=== PATIENT | female | born 1935 | race Caucasian/White ===

== ENCOUNTER 2023-03-30 08:24 | Inpatient (IN) ==
[2023-03-30] MEDS ORDERED: HYDROmorphone INJ 0.5 MG/0.5 ML SYR IV STA (08:43)
[2023-03-30] MEDS ORDERED: SODIUM CHLORIDE 0.9% 500 ML IV ONE (08:43)
[2023-03-30] MEDS ORDERED: ONDANSETRON INJ 2 MG/ML 2 ML VIAL IV STA (08:43)
--- NOTE | 2023-03-30 08:46 | Emergency Department Note ---
Impression & Plan Acute cholecystitis, Dilation of biliary tract ED Provider Note Name: ADRI DURHAM Age: 88 Sex: Female Arrives Via: Ambulance Informant: Patient ED Provider: Maynor Marques MD Chief Complaint: Abdominal pain Impression: As per impressions above Medical Decision Makin-year-old female with a history of breast cancer who has been having issues with constipation the last few months. She had a colonoscopy a little over a week ago with some polyp removals. There was a larger 2 polyps that we will need to further removal currently scheduled at [facility]. Patient states that pretty acutely last evening she developed right-sided abdominal pain. Continued throughout the evening with nausea and vomiting. Arrives to the ER via EMS. She was given IV pain medication Zofran and fluids. CT abdomen pelvis does reveal acute cholecystitis. Consulted general surgery who plan on taking her to the OR and have asked that medicine admit which I think is reasonable along with GI evaluation as well. These other services contacted and patient was kept comfortable in the ER. She was given some IV Mefoxin for abx coverage. Patient is not septic. Triage/Nursing Notes reviewed by Me Differential:Pancreatitis, renal colic, cholecystitis, bowel obstruction, ischemia, appendicitis amongst many other pathologies considered Vital Signs: reviewed and remarkable for no significant abnormalities Interventions: Normal saline bolus IV, Dilaudid IV, Zofran IV, Mefoxin IV Labs:ED labs Reviewed by me and remarkable for relatively unremarkable CBC, CMP Imaging:CT abdomen pelvis as per my formal interpretation reveals enlarged gallbladder with surrounding edema consistent with cholecystitis. This was confirmed by radiologist. EKG:As per my interpretation. Indication preoperative evaluation. Normal sinus rhythm at 66 bpm no ectopy no ischemia. QTc of 425. Similar to EKG from October 29, 2014 the rate is decreased. Cardiac/Tele Monitoring: Cardiac Monitoring: An Order was placed for continuous cardiac monitoring. The monitor shows a rate of 60 with a normal sinus rhythm. Consults:Dr Del Rio Gen Surg. Dr Concepcion Hospitalist Plan: Disposition:Hospitalization. Condition: Fair History of Present Illness: 88-year-old female arrives for evaluation of abdominal pain. Patient notes severe sudden onset abdominal pain starting at 6 PM last night. Associated dry heaves and vomiting. States she is having some chills but denies any known fevers. No chest pain, shortness of breath, back pain, urinary/bowel symptoms, leg swelling. Patient does note chronic constipation symptoms. She has had some dark stools which she related secondary to recent polyp removals. Patient has chronic anemia issues secondary to treatment for breast cancer. She did get blood transfusions a few weeks ago. She notes a history of aspirin use but no other blood thinner use. Past Medical History:See Below Home Medications:See Below Allergies:cipro, bactrim Vitals:Blood Pressure: 143/70, Pulse 68, RR 18, T 36.7C, O2 99% on RA Physical Exam: GENERAL: Patient is uncomfortable appearing and in moderate distress. RESPIRATORY: No dyspnea. Clear to auscultation and equal bilaterally. CARDIOVASCULAR: Regular rate and rhythm.No murmur appreciated. GASTROINTESTINAL: Moderate right-sided abdominal tenderness palpation no overt peritonitis. EXTREMITIES: Normal motion all extremities, no cyanosis, no edema. NEUROLOGIC: Alert and oriented. No focal neurologic deficits appreciated SKIN: No rash, no jaundice, no diaphoresis. PSYCH: Appropriate GCS: 15 ED Course: Times/Reassessments: Patient appears comfortable she states the pain medication helped well. 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 Jhaveri>rt breast (no surgery) Skin, right breast mass, incisional biopsy: - Invasive ductal carcinoma - Histologic grade: Low - Tubules: 3/3 - Nuclei: 1/3 - Mitoses: 1/3 - In situ component: Present H/O wrist surgery right Family History Aunt Breast cancer Father Heart disease Brother Heart disease Colorectal cancer Mother Clotting disorder Other No family history of adverse response to anesthesia Social History Smoking Status: Never smoker Second Hand Exposure: No; Hx Alcohol Use: No Preferred Language: Kazakh Communication Ability: Effective Observer Helper Required: No Beliefs That Will Affect Care: Confucianist Confucianist Beliefs: adventist marital status: / Current Living Situation: Alone current occupational status: retired How many Children do You have: 1 Feels Safe at Home: Yes during the past year weight has: remained stable Assistive Devices: Denture - Upper and Glasses Allergies Allergies Allergy/AdvReac Type Severity Reaction Status Date / Time ciprofloxacin [From Cipro] AdvReac Mild Nausea Verified 03/20/23 12:03 sulfamethoxazole AdvReac Mild Nausea Verified 03/20/23 12:03 [From Bactrim] trimethoprim [From Bactrim] AdvReac Mild Nausea Verified 03/20/23 12:03 Home Meds Home Medications Medication Instructions Recorded Confirmed aspirin 81 mg tablet,delayed 0 mg PO QPM 10/16/22 03/30/23 release atorvastatin 20 mg tablet 20 mg PO QPM 10/16/22 03/30/23 cholecalciferol (vitamin D3) 50 0 mcg PO QAM 10/16/22 03/30/23 mcg (2,000 unit) capsule escitalopram oxalate 5 mg tablet 5 mg PO QPM 10/16/22 03/30/23 furosemide 40 mg tablet 40 mg PO DAILY PRN Weight Gain 10/16/22 03/30/23 mecobalamin (vitamin B12) 1,000 0 mcg PO DAILY 10/16/22 03/30/23 mcg chewable tablet potassium chloride 10 mEq 10 meq PO DAILY PRN Weight Gain 10/16/22 03/30/23 capsule,extended release lorazepam 1 mg tablet 1 mg PO UD PRN Anxiety 12/09/22 03/30/23 abemaciclib 50 mg tablet (Verzenio) 0 mg PO BID 12/29/22 03/30/23 metoprolol succinate 25 mg 25 mg PO QPM 03/13/23 03/30/23 tablet,extended release 24 hr multivitamin 0 tab PO DAILY 03/13/23 03/30/23 ondansetron 8 mg disintegrating 8 mg PO TID PRN Nausea And Vomiting 03/30/23 03/30/23 tablet Previous Rx's Medication Instructions Recorded peg 3350-electrolytes 236 240 ml PO Q10M #4,000 mL 03/09/23 gram-22.74 gram-6.74 gram-5.86 gram solution (GaviLyte-G) Results & Data (ED) Vital Signs Vital Signs - 24 hr 03/30/23 08:24 03/30/23 09:55 Temperature 36.7 C Temperature Source Oral Pulse Rate 68 Pulse Rate [Radial] 77 Pulse Rhythm [Radial] Regular Respiratory Rate 18 18 Respiratory Effort / Characteristics Non-Labored Non-Labored Respiratory Depth Normal Normal Respiratory Pattern Regular Regular Blood Pressure 143/70 H Blood Pressure [Right Arm] 123/52 L Blood Pressure Mean 94 Blood Pressure Mean [Right Arm] 75 Pulse Oximetry 99 96 Oxygen Delivery Method Room Air Room Air Sepsis Recent Fever Within 48 Hours No Sepsis New/Unexplained Change in Mental Status N/A Sepsis Action Taken by Nursing No Action Required Laboratory Data 03/30/23 08:30 03/30/23 08:30 Lab Results 03/30/23 Range/Units 08:30 WBC 5.58 (4.8-10.8) K/ul RBC 3.07 L (4.20-5.40) M/uL Hgb 9.0 L (12.0-16.0) g/dl Hct 29.0 L (37.0-47.0) % MCV 94.5 (80.0-100.0) fL MCH 29.3 (25.0-34.0) pg MCHC 31.0 L (32.0-36.0) g/dL RDW Std Deviation 63.7 H (36.4-46.3) fL RDW Coeff of Kirill 18.5 H (11.5-14.5) % Plt Count 204 (130-400) K/uL MPV 9.3 L (9.4-12.4) fL Immature Gran % (Auto) 0.4 % Neut % (Auto) 61.6 % Lymph % (Auto) 23.8 % Stearns % (Auto) 9.1 % Eos % (Auto) 3.8 % Baso % (Auto) 1.3 % Neut # (Auto) 3.44 (1.40-6.50) K/uL Lymph # (Auto) 1.33 (1.20-3.40) K/uL Stearns # (Auto) 0.51 (0.11-0.59) K/uL Eos # (Auto) 0.21 (0.00-0.50) K/uL Baso # (Auto) 0.07 (0.00-0.20) K/uL Immature Gran # (Auto) 0.02 (0.01-0.20) K/uL Sodium 138 (136-145) mmol/L Potassium 4.5 (3.5-5.1) mmol/L Chloride 107 (98-107) mmol/L Carbon Dioxide 22 (21-32) mmol/L Anion Gap 9 (3-11) BUN 40 H (6-23) mg/dl Creatinine 1.57 H (0.6-1.2) mg/dl Est Cr Clr Drug Dosing 23.1 ml/min Est GFR ( Amer) 34.2 ml/min Est GFR (Non-Af Amer) 29.5 ml/min BUN/Creatinine Ratio 25.5 H (10-20) Glucose 123 H (70-99(Fasting)) mg/dl Calcium 9.8 (8.6-10.3) mg/dl Magnesium 1.7 (1.7-2.4) mg/dl Total Bilirubin 0.4 (0.2-1.0) mg/dl Direct Bilirubin 0.1 (0-0.2) mg/dl AST 23 (13-39) U/L ALT 21 (7-52) U/L Alkaline Phosphatase 92 (34-104) U/L Troponin I High Sens 13.5 (0-14) pg/ml Total Protein 6.8 (6.0-8.3) gm/dl Albumin 4.1 (3.4-5.0) gm/dl Lipase 78 (11-82) U/L Administered Medications Hydromorphone HCl (Hydromorphone Inj 0.5 Mg/0.5 Ml Syr) 0.5 mg IV Q4H PRN PRN Reason: Pain(5+) Stop: 04/13/23 10:33 Last Admin: 03/30/23 11:36 Dose: 0.5 mg Documented By: DUKE Ondansetron HCl (Ondansetron Inj 2 Mg/Ml 2 Ml Vial) 4 mg IV Q4H PRN PRN Reason: Nausea Stop: 04/29/23 11:01 Last Admin: 03/30/23 11:36 Dose: 4 mg Documented By: DUKE Discontinued Medications Hydromorphone HCl (Hydromorphone Inj 0.5 Mg/0.5 Ml Syr) 0.5 mg IV NOW STA Stop: 03/30/23 08:44 Last Admin: 03/30/23 09:02 Dose: 0.5 mg Documented By: DUKE Sodium Chloride (Nss) 500 mls @ 999 mls/hr IV .Q31M ONE Stop: 03/30/23 09:13 Last Infusion: 03/30/23 09:54 Dose: Infused Documented By: Admin: 03/30/23 09:02 Dose: 999 mls/hr Documented By: DUKE Cefoxitin Sodium (Mefoxin) 2,000 mg in 60 mls @ 100 mls/hr IV NOW STA Stop: 03/30/23 10:40 Last Infusion: 03/30/23 11:20 Dose: Infused Documented By: Admin: 03/30/23 10:44 Dose: 100 mls/hr Documented By: DUKE Metronidazole (Flagyl) 500 mg in 100 mls @ 100 mls/hr IV NOW STA; Protocol Stop: 03/30/23 11:46 Last Infusion: 03/30/23 12:51 Dose: Infused Documented By: Admin: 03/30/23 11:42 Dose: 100 mls/hr Documented By: DUKE Lactated Ringer's (Lr) 1,000 mls @ 80 mls/hr IV .[id number] MANUEL Stop: 03/31/23 11:59 Last Admin: 03/30/23 11:42 Dose: 80 mls/hr Documented By: DUKE Ioversol (Optiray 320 500ml) 90 ml IV ONCE ONE Stop: 03/30/23 09:37 Last Admin: 03/30/23 09:36 Dose: 90 ml Documented By: EJ Ondansetron HCl (Ondansetron Inj 2 Mg/Ml 2 Ml Vial) 4 mg IV NOW STA Stop: 03/30/23 08:44 Last Admin: 03/30/23 09:02 Dose: 4 mg Documented By: DUKE Imaging Data Radiologist's Impression: Abdomen/Pelvis CT 03/30/23 08:43 CT OF THE ABDOMEN AND PELVIS WITH CONTRAST CLINICAL HISTORY: severe right sided abdo pain, recent colonoscopy COMPARISON STUDY: PET/CT December 20, 2022. CT of the abdomen and pelvis February 28, 2023. TECHNIQUE: Following IV administration of mL of Optiray, axial images of the abdomen and pelvis were obtained from the lung bases to the proximal femurs. Images were reviewed in the axial, sagittal, and coronal planes. IV contrast was administered without complication. Automated exposure control was utilized for the study. A dose lowering technique was utilized adhering to the principles of ALARA. CT DOSE: 1184.01 mGy.cm FINDINGS: 1.7 cm lesion within the upper outer quadrant of the right breast likely reflects the primary lesion. Moderate sized hiatal hernia is present. No pneumatosis, free air or portal venous gas. There is no evidence for a bowel obstruction. No bowel wall thickening is noted. There is sigmoid diverticulosis without evidence for acute diverticulitis. The appendix is surgically absent. Previously described 2.3 cm cecal mass is again noted. An additional intraluminal lesion within the ileum is noted on image 235. Spleen, adrenal glands and pancreas are unremarkable. There is mild bilateral renal cortical thinning. There is no hydronephrosis. Moderate to marked gallbladder distention has developed since prior exam. There is mild pericholecystic stranding. Multiple gallstones within the gallbladder are present. Moderate biliary ductal dilatation is similar to prior exam. Multiple common bile duct measure up to 5 mm. There is no pancreatic ductal dilatation. No evidence for acute pancreatitis by CT. There is no lymphadenopathy. 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 IMPRESSION: 1. Interval development of significant gallbladder distention with mild pericholecystic stranding. Cholelithiasis. The findings suggest acute cholecystitis. 2. No significant change in biliary ductal dilatation with redemonstration of multiple common bile duct calculi. 3. No pneumoperitoneum. No bowel obstruction. No bowel wall thickening. Redemonstration of the intraluminal lesions within the cecum and ileum. 4. No change in skeletal metastases. ACT 112: Negative or not required by law. Electronically signed by: Mayito Ricardo M.D. 03/30/2023 9:57 AM Discharge Plan Visit Data Chief Complaint: Abdominal Pain Stated Complaint: AB PAIN ED Provider: Maynor Marques Discharge Problem: Acute cholecystitis, Dilation of biliary tract Discharge Instructions Interventions: ED Discharge Assessment Last Done: 03/30/23 11:45
--- OUTSIDE RECORDS SUMMARY | 2023-03-30 08:57 | External Medical Summary | Continuity of Care Document ---
Author Name Unknown Organization [facility] [address] Address [address] [place] [phone] Care Team Providers Care Forestry Worker Name Role Phone Chela Collier Primary Care Physician [phone] Encounter [facility] [id number] Date(s): 03/26/23 - 03/26/23 [facility] [address], [address] [place] [address] [phone] Encounter Diagnosis Diastolic dysfunction(Discharge Diagnosis) - 03/26/23 Cardiomyopathy(Discharge Diagnosis) - 03/26/23 CAD in [place] artery(Discharge Diagnosis) - 03/26/23 Anemia(Discharge Diagnosis) - 03/26/23 Discharge Disposition: Home or Self Care Attending Physician: VEGA Figueroa Sarah A Referring Physician: VEGA Figueroa Sarah A Allergies, Adverse Reactions, Alerts Substance Reaction Severity Status Cipro nausea Active Bactrim nausea Active Assessment and Plan Extracted from: Title:Cardiology Office Visit Note Author:VEGA Oliva rd, Sarah A Date:03/26/23 Impression: 1. a. Status post septal infarct approximately 2014 with angioplasty and stenting of the presumed LAD. b. Moderate left ventricular dysfunction with an EF in the range of 35% with akinesis of the anterior septum, inferior septum and apex; type 3 diastolic dysfunction; severe left atrial enlargement; moderate mitral regurgitation and moderate pulmonary hypertension with a PA pressure of 50 mmHg (echo 06/2021). 2. History of systolic heart failure. 3. Significant anemia with an ongoing workup. 4. Anxiety, which has improved with Lexapro. 5. Hyperlipidemia. 6. Hypertension. Ms. Tariq has concerns about having her colon polyp removal done at [place] as she will not be in the hospital her cardiology team goes to. She was reassured that the [facility] cardiologists would care for her if necessary. She could also consider having it done at [place] if possible if she'd like to keep her workup in the [facility] system. I will have her get a repeat echo prior to her procedure. I discussed with her however that she would not be a candidate for invasive workup or surgeries given her transfusion dependent anemia. Fortunately she appears euvolemic and is not having any concerning anginal symptoms. She did fine with her previous colonoscopy. She is a moderate to high cardiac risk for invasive procedures/surgery. She had questions about the difference in heart failure and cardiomyopathy which we discussed. She is losing weight and is not eating much during the day. She was encouraged to increase her calories and protein intake. Her blood pressure is controlled. She returns to the clinic in 6 months. Immunizations Given and Recorded Vaccine Date Status Refusal Reason influenza virus vaccine, inactivated 03/24/22 Give n SARS-CoV-2 (COVID-19) mRNA BNT-162b2 vax 01/06/21 Recorded SARS-CoV-2 (COVID-19) mRNA BNT-162b2 vax 05/13/20 Recorded SARS-CoV-2 (COVID-19) mRNA BNT-162b2 vax 04/22/20 Recorded Medications aspirin 81 mg oral capsule Start: 04/20/21 12:33:00 EST, 1 cap, PO, q24h Start Date: 04/20/21 Status: Ordered atorvastatin 20 mg oral tablet Start: 07/12/22 10:37:00 EDT, 1 tab, PO, Daily, Disp# 100 tab, Refills: 3, TAKE ONE TABLET BY MOUTHDAILY, Pharmacy: [id number] Start Date: 07/12/22 Stop Date: 07/07/23 Status: Ordered Entresto 49 mg-51 mg oral tablet Start: 09/21/22 15:15:00 EDT, 1 tab, PO, bid, Disp# 60 tab, Refills: 11, Pharmacy: [id number] Start Date: 09/21/22 Status: Ordered escitalopram 5 mg oral tablet Start: 03/26/23 17:44:00 EST, See Instructions, Disp# 30 tab, Refills: 5, TAKE 1 TABLET BY MOUTH DAILY AT BEDTIME, Pharmacy: [id number] Start Date: 03/26/23 Status: Ordered Metoprolol Succinate ER 25 mg oral tablet, extended release Start: 08/01/22 12:49:00 EDT, 1 tab, PO, Daily, Disp# 90 tab, Refills: 3, Pharmacy: [id number] Start Date: 08/01/22 Status: Ordered ondansetron 4 mg oral tablet Start: 04/20/21 12:32:00 EST, 1 tab, PO, tid, PRN: as needed for nausea/vomiting Start Date: 04/20/21 Status: Ordered Verzenio Start: 03/26/23 12:57:00 EST Start Date: 03/26/23 Status: Ordered Vitamin B12 Start: 06/03/21 11:05:00 EDT, 1,000 mcg =, PO, Daily Start Date: 06/03/21 Status: Ordered Vitamin D3 2000 intl units (50 mcg) oral tablet Start: 05/27/21 13:57:00 EDT, 1 tab, PO, Daily, Disp# 30 tab, Refills: 6, Pharmacy: [facility]acy #[id number] Start Date: 05/27/21 Stop Date: 12/23/21 Status: Ordered Mental Status 03/26/23 Barriers to Learning one year None evide nt Mandatory Health Literacy Documentation Yes Health Literacy Communication Barriers N ever Primary Language Turkmen Problem List Condition Confirmation Course Effective Dates Status H ealth Status Informant Anemia Confirmed Active Ankle pain, right Confirmed Active Mass of breast Confirmed Active Chronic systolic heart failure Confirmed Active Chronic kidney disease Confirmed Active Coronary artery disease Confirmed Active Proximal humeral fracture Confirmed Active GERD (gastroesophageal reflux disease) Confirmed Active Hyperlipidemia Confirmed Active Ischemic cardiomyopathy Confirmed Active Lytic lesion of bone on x-ray Confirmed Active Post-menopause Confirmed Active Thyroid nodule Confirmed Active Vitamin D deficiency Confirmed Active Diagnosis Diagnosis Type Effective Dates Health Status Clinical Service Informant Diastolic dysfunction Discharge Diagnosis 03/26/23 Non-Specified Cardiomyopathy Discharge Diagnosis 03/26/23 Non-Specified CAD in [place] artery Discharge Diagnosis 03/26/23 Non-Specified Anemia Discharge Diagnosis 03/26/23 Non-Specified Procedures Procedure Date Related Diagnosis Body Site Status COLONOSCOPY & POLYPECTOMY 1 03/21/23 Completed Breast biopsy sample 10/18/22 Comp leted Upper GI (gastrointestinal) endoscopy Completed 15mm polyp 4mm polyp Vital Signs Most recent to oldest [Reference Range]: 1 Patient Weight 57.1 kg (03/26/23 12:52 PM) Heart Rate 60 bpm (03/26/23 12:52 PM) Respiratory Rate 18 br/min (03/26/23 12:52 PM) Blood Pressure 110/60mmHg (03/26/23 12:52 PM) Cuff Pulse Pressure 50 mmHg (03/26/23 12:52 PM) BP Location # 1 Left Arm (03/26/23 12:52 PM) Social History Social History Type Response Smoking Status Never smoked cigaret luz Sex Cardiology Outpatient Note * VEGA Figueroa Sarah A: PERFORM, MODIFY Event Display: Cardiology Outpt Note Authored Date: [id number] Primary Care Provider DO Collier Kristen M Referring Provider VEGA Figueroa Sarah A Chief Complaint follow up, discuss concerns about CHF and her breast CA and colonoscopy History of Present Illness Ms. Tariq presents for follow up of her history of coronary artery disease status post septal VT approximately 2014, history of congestive heart failure, hypertension, hyperlipidemia, chronic kidney disease, workup for ongoing anemia, and moderate ischemic cardiomyopathy with an ejection fraction in the range of 35%. 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 She is being treated with fulvestrant and abemaciclib. She has required blood transfusions in the last few weeks for significant anemia. Her endoscopy andcolonoscopy did not reveal bleeding. She did have multiple polyps. She has two large polyps which will need specialization in [place] to remove. She has questions regarding having a procedure in [facility] where her medical team is not based. She feels less tired since her blood transfusion. She denies sob, chest pain or edema. She walks around the grocery store and takes care of her own home. Her weight is down 10 lbs. She notes "Im not a good eater". She eats once a day and has a Boost. She just has no appetite Review of Systems All other systems reviewed and negative except as discussed in the HPI Physical Exam Vitals & Measurements HR:60(Monitored) RR:18 BP:110/60 SpO2:98% WT:57.1kg WT:57.100kg(Dosing) Physical Examination General: Alert and oriented, No acute distress. Respiratory: Lungs are clear to auscultation, Respirations are non-labored. Cardiovascular: Normal rate, Regular rhythm, No murmur, No edema, no carotid bruits to auscultation bilaterally. Integumentary: Warm, Dry, [place] Neurologic: Alert, Oriented. Cognition and Speech: Speech clear and coherent. Psychiatric: Cooperative, Appropriate mood & affect. Assessment/Plan Impression: 1. a. Status post septal infarct approximately 2014 with angioplasty and stenting of the presumed LAD. b. Moderate left ventricular dysfunction with an EF in the range of 35% with akinesis of the anterior septum, inferior septum and apex; type 3 diastolic dysfunction; severe left atrial enlargement;moderate mitral regurgitation and moderate pulmonary hypertension with a PA pressure of 50 mmHg (echo 06/2021). 2. History of systolic heart failure. 3. Significant anemia with an ongoing workup. 4. Anxiety, which has improved with Lexapro. 5. Hyperlipidemia. 6. Hypertension. Ms. Tariq has concerns about having her colon polyp removal done at [place] as she will not be [facility] her cardiology team goes to. She was reassured that the [facility] cardiologists would care for her if necessary. She could also consider having it done at [place] if possible if she'd like to keep her workup in the [facility] system. I will have her get a repeat echo prior to her procedure. I discussed with her however that she would not be a candidate for invasive workup or surgeries given her transfusion dependent anemia. Fortunately she appears euvolemic and is not having any concerning anginal symptoms. She did fine with her previous colonoscopy. She is a moderate to high cardiac risk for invasive procedures/surgery. She had questions about the difference in heart failure and cardiomyopathy which we discussed. She is losing weight and is not eating much during the day. She was encouraged to increase her calories and protein intake. Her blood pressure is controlled. She returns to the clinic in 6 months. Problem List/Past Medical History Ongoing Anemia Ankle pain, right Chronic kidney disease Chronic systolic heart failure Coronary artery disease GERD (gastroesophageal reflux disease) Hyperlipidemia Ischemic cardiomyopathy Lytic lesion of bone on x-ray Mass of breast Post-menopause Proximal humeral fracture Thyroid nodule Vitamin D deficiency Procedure/Surgical History COLONOSCOPY & POLYPECTOMY (03/21/2023) Breast biopsy sample (10/18/2022) Upper GI (gastrointestinal) endoscopy Medications abemaciclib(Verzenio) aspirin(aspirin 81 mg oral capsule), 81 mg= 1 cap, PO, q24h atorvastatin(atorvastatin 20 mg oral tablet), 20 mg= 1 tab, PO, Daily, 3 refills cholecalciferol(Vitamin D3 2000 intl units (50 mcg) oral tablet), 50 mcg= 1 tab, PO, Daily, 6 refills cyanocobalamin(Vitamin B12), 1000 mcg, PO, Daily escitalopram(escitalopram 5 mg oral tablet), See Instructions furosemide(furosemide 40 mg oral tablet), 40 mg= 1 tab, PO, Daily, 1 refills metoprolol(Metoprolol Succinate ER 25 mg oral tablet, extended release), 25 mg= 1 tab, PO, Daily, 3refills ondansetron(ondansetron 4 mg oral tablet), 4 mg= 1 tab, PO, tid, PRN potassium chloride(Potassium Chloride (Mjd-Uure-Nqk 10) 10 mEq oral tablet, extended release), 10 mEq= 1 tab, PO, Daily, 1 refills sacubitril-valsartan(Entresto 49 mg-51 mg oral tablet), 1 tab, PO, bid, 11 refills Allergies Bactrimnausea Cipronausea Social History Smoking Status Never smoked cigarettes Electronic Signature on File CC: Chela Collier DO [address] [place] [address] Electronically Reviewed/Signed by: VEGA Zheng Author Signature Dt/Tm:03/26/2023 02:44 PM [facility] Patient Care team information Care Team Personnel Name: VEGA Rajput Tara Position: Nurse Pract - Family Med Member Role: Lifetime Relationship Address: Address: [address] [place] [address] [place] Name: DO Collier Kristen M Position: Physician - Family Med Member Role: Primary Care Provider Address: Address: [address] [place] [address] Care Team Related Persons Name: SANDER BLAIR Address: [facility] Address: home [address] [place], [place] [id number]
[2023-03-30 09:00] LABS: Basophils # (auto) 0.07 K/uL (0.00-0.20); Basophils % (auto) 1.3 %; Eosinophils # (auto) 0.21 K/uL (0.00-0.50); Eosinophils % (auto) 3.8 %; Immature Granulocytes # (auto) 0.02 K/uL (0.01-0.20); Immature Granulocytes % (auto) 0.4 %; Lymphocytes # (auto) 1.33 K/uL (1.20-3.40); Lymphocytes % (auto) 23.8 %; Mean Corpuscular Hemoglobin 29.3 pg (25.0-34.0); Mean Corpuscular Volume 94.5 fL (80.0-100.0); Mean Platelet Volume 9.3 fL (9.4-12.4); Monocytes # (auto) 0.51 K/uL (0.11-0.59); Monocytes % (auto) 9.1 %; Neutrophils # (auto) 3.44 K/uL (1.40-6.50); Neutrophils % (auto) 61.6 %; Platelet Count 204 K/uL (130-400); RDW Coefficient of Variation 18.5 % (11.5-14.5); RDW Standard Deviation 63.7 fL (36.4-46.3); Red Blood Count 3.07 M/uL (4.20-5.40); White Blood Count 5.58 K/ul (4.8-10.8)
[2023-03-30 09:11] LABS: Albumin Level 4.1 gm/dl (3.4-5.0); Bilirubin Direct 0.1 mg/dl (0-0.2); Bilirubin,Total 0.4 mg/dl (0.2-1.0); Calcium 9.8 mg/dl (8.6-10.3); Magnesium 1.7 mg/dl (1.7-2.4); Potassium 4.5 mmol/L (3.5-5.1)
[2023-03-30 09:17] LABS: BUN Creatinine Ratio 25.5 (10-20); Creatinine Clr Calc Pharmacy 23.1 ml/min; Est GFR (African American) 34.2 ml/min; Est GFR (Non-African American) 29.5 ml/min; Total Protein 6.8 gm/dl (6.0-8.3)
[2023-03-30 09:21] LABS: Troponin I High Sensitivity 13.5 pg/ml (0-14)
[2023-03-30] MEDS ORDERED: OPTIRAY 320 500ml IV ONE (09:36)
--- NOTE | 2023-03-30 09:59 | CT Scan Report ---
CT OF THE ABDOMEN AND PELVIS WITH CONTRAST CLINICAL HISTORY: severe right sided abdo pain, recent colonoscopy COMPARISON STUDY: PET/CT December 20, 2022. CT of the abdomen and pelvis February 28, 2023. TECHNIQUE: Following IV administration of mL of Optiray, axial images of the abdomen and pelvis were obtained from the lung bases to the proximal femurs. Images were reviewed in the axial, sagittal, and coronal planes. IV contrast was administered without complication. Automated exposure control was u tilized for the study. A dose lowering technique was utilized adhering to the principles of ALARA. CT DOSE: 1184.01 mGy.cm FINDINGS: 1.7 cm lesion within the upper outer quadrant of the right breast likely reflects the prima ry lesion. Moderate sized hiatal hernia is present. No pneumatosis, free air or portal venous gas. Th ere is no evidence for a bowel obstruction. No bowel wall thickening is noted. There is sigmoid diver ticulosis without evidence for acute diverticulitis. The appendix is surgically absent. Previously de scribed 2.3 cm cecal mass is again noted. An additional intraluminal lesion within the ileum is noted on image 235. Spleen, adrenal glands and pancreas are unremarkable. There is mild bilateral renal co rtical thinning. There is no hydronephrosis. Moderate to marked gallbladder distention has developed since prior exam. There is mild pericholecystic stranding. Multiple gallstones within the gallbladder are present. Moderate biliary ductal dilatation is similar to prior exam. Multiple common bile duct measure up to 5 mm. There is no pancreatic ductal dilatation. No evidence for acute pancreatitis by C T. There is no lymphadenopathy. 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 IMPRESSION: 1. Interval development of significant gallbladder distention with mild pericholecystic stranding. Ch olelithiasis. The findings suggest acute cholecystitis. 2. No significant change in biliary ductal dilatation with redemonstration of multiple common bile du ct calculi. 3. No pneumoperitoneum. No bowel obstruction. No bowel wall thickening. Redemonstration of the intral uminal lesions within the cecum and ileum. 4. No change in skeletal metastases. ACT 112: Negative or not required by law. Electronically signed by: Mayito Ricardo M.D. 03/30/2023 9:57 AM
[2023-03-30] MEDS ORDERED: cefOXitin 2,000 MG/60 ML BAG IV STA (10:05)
--- NOTE | 2023-03-30 10:30 | History & Physical Report ---
Date of Service March 30, 2023 Assessment & Plan (1) Acute cholecystitis: Plan: -Admit to med/surge -Currently hemodynamically stable and non-toxic appearing -Presented to the ED with ongoing nausea, RUQ pain with radiation to the back which began last night -CT of the abd/pelvis w/con shows signs consistent with acute cholecystitis -WBC and LFT's are WNL, it does appear that she has chronic biliary distention on CT, will defer need for ERCP to GI/General surgery -General surgery has been consulted and will evaluated the patient shortly, appreciate their assistance >Plan at this time is taking her to the OR this afternoon -Keep NPO -S/P one dose of Cefoxitin and 500 mL NSS in the ED -Will continue with Ceftriaxone and Flagyl for now -Pain control with tyelnol and dilaudid -Monitor pulse oximetry, prn Narcan ordered -Will obtain CXR for pre-operative clearance -Will start light LR at 80 mL/hr x 2 bags with her HX of HFrEF -BL SARAH's for DVT ppx, hold chemical PPX for now with plans for OR this afternoon -AM CBC, CMP, mag, PT/INR (2) CHF (congestive heart failure): Plan: -LVEF of 35% as of 06/2021 -Appears euvolemic on exam -Did have am dose of Entresto -Hold Entresto and lasix while NPO -Monitor volume status closely moving forward (3) Invasive ductal carcinoma of breast: Plan: -Currently on BID Verzenio -Hold while NPO (4) Stented coronary artery: Plan: -ECG and high sen trop are WNL -Continue Aspirin when able to resume PO intake (5) Hypercholesterolemia: Plan: -Continue statin when able (6) Choledocholithiasis: Plan The patient was discussed with Dr. Concepcion at the time of admission History of Present Illness Chief Complaint: RUQ pain, back pain, nausea Primary Care Provider: Chela Collier, August is an 88 year old female with a PMH significant with Ischemic Cardiomyopathy (LVEF of 35%, breast cancer (currently on hormone therapy), CAD, CKD, hyperlipidemia, who presented to the [facility] ED on 03/30/23 via EMS with complaints of RUQ pain, back pain, and nausea. She remained stable in the ED. Labs including CBC, CMP, and high sen trop were WNL. CT of the abd/pelvis w/con was read as 1. Interval development of significant gallbladder distention with mild pericholecystic stranding. Cholelithiasis. The findings suggest acute cholecystitis. 2. No significant change in biliary ductal dilatation with redemonstration of multiple common bile duct calculi. 3. No pneumoperitoneum. No bowel obstruction. No bowel wall thickening. Redemonstration of the intraluminal lesions within the cecum and ileum. 4. No change in skeletal metastases..The ED spoke with General Surgery who will plan on performing a cholecystectomy. THe ED staff spoke with GI as well to have them on board in case ERCP would be required. Prior to admission the patient was given a dose of Cefoxitin, 500 mL NSS, 0.5 mg IV dilaudid, and 4 mg IV zofran. At the time of the exam the patient was lying in bed in no acute distress. She states that she started to develop nausea, RUQ pain with radiation into the right back, and dry heaves around 2100 last night. Her symptoms continued overnight prompting ED evaluation. Her symptoms are currently under control after receiving IV dilaudid and zofran in the ED. She denies recent fever, chills, SOB, hematemesis, dysuria, hematuria, melena, LE swelling, and recent trauma. She last ate at approximately 1800 last night. She did take her am dose of Entresto prior to arrival. She is a full code and would want her daughter, Dianna Hyatt, to make medical decisions for her if she cannot make them herself. Please refer to Dr. Concepcion's attestation for any changes to the treatment plan Allergies Allergy/AdvReac Type Severity Reaction Status Date / Time ciprofloxacin [From Cipro] AdvReac Mild Nausea Verified 03/20/23 12:03 sulfamethoxazole AdvReac Mild Nausea Verified 03/20/23 12:03 [From Bactrim] trimethoprim [From Bactrim] AdvReac Mild Nausea Verified 03/20/23 12:03 Home Medications Medication Instructions Recorded Confirmed Type aspirin 81 mg tablet,delayed 0 mg PO QPM 10/16/22 03/30/23 History release atorvastatin 20 mg tablet 20 mg PO QPM 10/16/22 03/30/23 History cholecalciferol (vitamin D3) 50 0 mcg PO QAM 10/16/22 03/30/23 History mcg (2,000 unit) capsule escitalopram oxalate 5 mg tablet 5 mg PO QPM 10/16/22 03/30/23 History furosemide 40 mg tablet 40 mg PO DAILY PRN Weight Gain 10/16/22 03/30/23 History mecobalamin (vitamin B12) 1,000 0 mcg PO DAILY 10/16/22 03/30/23 History mcg chewable tablet potassium chloride 10 mEq 10 meq PO DAILY PRN Weight Gain 10/16/22 03/30/23 History capsule,extended release lorazepam 1 mg tablet 1 mg PO UD PRN Anxiety 12/09/22 03/30/23 History abemaciclib 50 mg tablet (Verzenio) 0 mg PO BID 12/29/22 03/30/23 History peg 3350-electrolytes 236 240 ml PO Q10M #4,000 mL 03/09/23 03/30/23 Rx gram-22.74 gram-6.74 gram-5.86 gram solution (GaviLyte-G) metoprolol succinate 25 mg 25 mg PO QPM 03/13/23 03/30/23 History tablet,extended release 24 hr multivitamin 0 tab PO DAILY 03/13/23 03/30/23 History ondansetron 8 mg disintegrating 8 mg PO TID PRN Nausea And Vomiting 03/30/23 03/30/23 History tablet Past Med/Surg History Medical History Urinary urgency Prolapsed uterus no device GERD (gastroesophageal reflux disease) Anemia Cataract rt/left (current problem) Anxiety Hx of myocardial infarction 2016 Hypertension Hyperlipidemia CHF (congestive heart failure) followed by Dr. 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 Jhaveri>rt breast (no surgery) Skin, right breast mass, incisional biopsy: - Invasive ductal carcinoma - Histologic grade: Low - Tubules: 3/3 - Nuclei: 1/3 - Mitoses: 1/3 - In situ component: Present H/O wrist surgery right Family History Aunt Breast cancer Father Heart disease Brother Heart disease Colorectal cancer Mother Clotting disorder Other No family history of adverse response to anesthesia Social History Smoking Status: Never smoker Second Hand Exposure: No; Hx Alcohol Use: No Preferred Language: Nauruan Communication Ability: Effective Verify Rep Required: No Beliefs That Will Affect Care: Mormonism Mormonism Beliefs: yarsanism marital status: / Current Living Situation: Alone current occupational status: retired How many Children do You have: 1 Feels Safe at Home: Yes during the past year weight has: remained stable Assistive Devices: Denture - Upper and Glasses Physical Exam Physical Exam: Physical Exam: General: In no acute distress, stated age, well-nourished, non-toxic appearing HEENT: Normocephalic, atraumatic, no scleral icterus, pupils around round, symmetrical, and reactive to light, moist mucus membranes, trachea midline, no thyromegaly Chest/Pulm: No respiratory distress, symmetrical chest expansion, clear breath sounds throughout Cardiac: RRR, no murmurs noted Abdomen: Negative for ascites and bruising, normoactive bowel sounds, soft, non-tender to palpation throughout; negative reyes's sign Musculoskeletal: Symmetrical and without signs of acute trauma, upper and lower extremities with full ROM, no atrophy, spasticity, or flaccidity Extremities: Radial, dorsalis pedis, and posterior tibial pulses are intact and symmetrical, no edema noted in the BL LE's Skin: Warm, dry, no rashes , lesions, or scars noted Neuro: Alert and oriented to person, place, month, year, and president, no focal defects, no tremors noted Psych: No acute distress, calm and cooperative during the exam Results & Data Results & Data Vital Signs (Past 12 Hours) Vital Signs Temp Pulse Pulse Resp BP BP Pulse Ox 03/30/23 09:55 77 18 123/52 L 96 03/30/23 08:24 36.7 C 68 18 143/70 H 99 O2 Del Method 03/30/23 09:55 Room Air 03/30/23 08:24 Room Air Laboratory Results Abnormal lab results 03/30/23 Range/Units 08:30 RBC 3.07 L (4.20-5.40) M/uL Hgb 9.0 L (12.0-16.0) g/dl Hct 29.0 L (37.0-47.0) % MCHC 31.0 L (32.0-36.0) g/dL RDW Std Deviation 63.7 H (36.4-46.3) fL RDW Coeff of Ikrill 18.5 H (11.5-14.5) % MPV 9.3 L (9.4-12.4) fL BUN 40 H (6-23) mg/dl Creatinine 1.57 H (0.6-1.2) mg/dl BUN/Creatinine Ratio 25.5 H (10-20) Glucose 123 H (70-99(Fasting)) mg/dl Diagnostic Findings Abdomen/Pelvis CT 03/30/23 08:43 CT OF THE ABDOMEN AND PELVIS WITH CONTRAST CLINICAL HISTORY: severe right sided abdo pain, recent colonoscopy COMPARISON STUDY: PET/CT December 20, 2022. CT of the abdomen and pelvis February 28, 2023. TECHNIQUE: Following IV administration of mL of Optiray, axial images of the abdomen and pelvis were obtained from the lung bases to the proximal femurs. Images were reviewed in the axial, sagittal, and coronal planes. IV contrast was administered without complication. Automated exposure control was utilized for the study. A dose lowering technique was utilized adhering to the principles of ALARA. CT DOSE: 1184.01 mGy.cm FINDINGS: 1.7 cm lesion within the upper outer quadrant of the right breast likely reflects the primary lesion. Moderate sized hiatal hernia is present. No pneumatosis, free air or portal venous gas. There is no evidence for a bowel obstruction. No bowel wall thickening is noted. There is sigmoid diverticulosis without evidence for acute diverticulitis. The appendix is surgically absent. Previously described 2.3 cm cecal mass is again noted. An additional intraluminal lesion within the ileum is noted on image 235. Spleen, adrenal glands and pancreas are unremarkable. There is mild bilateral renal cortical thinning. There is no hydronephrosis. Moderate to marked gallbladder distention has developed since prior exam. There is mild pericholecystic stranding. Multiple gallstones within the gallbladder are present. Moderate biliary ductal dilatation is similar to prior exam. Multiple common bile duct measure up to 5 mm. There is no pancreatic ductal dilatation. No evidence for acute pancreatitis by CT. There is no lymphadenopathy. 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 IMPRESSION: 1. Interval development of significant gallbladder distention with mild pericholecystic stranding. Cholelithiasis. The findings suggest acute cholecystitis. 2. No significant change in biliary ductal dilatation with redemonstration of multiple common bile duct calculi. 3. No pneumoperitoneum. No bowel obstruction. No bowel wall thickening. Redemonstration of the intraluminal lesions within the cecum and ileum. 4. No change in skeletal metastases. ACT 112: Negative or not required by law. Electronically signed by: Mayito Ricardo M.D. 03/30/2023 9:57 AM ECG Additional Comments: Normal sinus rhythm Left axis deviation Minimal voltage criteria for LVH, may be normal variant ( R in aVL ) Possible Anteroseptal infarct (cited on or before 29-OCT-2014) Abnormal ECG When compared with ECG of 29-OCT-2014 21:41, Vent. rate has decreased BY 36 BPM Questionable change in initial forces of Anterior l ruth Code Status & VTE Plan Code Status Full code VTE Prophylaxis Plan VTE Prophylaxis will be ordered: Yes Supervising Physician Co-Signing Physician Notes I personally saw and examined the patient. I independently reviewed the labs, EKG, imaging, problem list, medication list, past medical history and family history. I verified all brito points and agree with Lenny Dias PA-C with the following exceptions and/or additions: 88-year-old female presents to the ER with right upper quadrant abdominal pain starting yesterday. Diagnosed with acute cholecystitis based on imaging and exam. White blood count within normal limits. Patient is afebrile and nonseptic appearing. O/E Alert and orientated x 3, HS RRR, no murmurs, Chest CTAB, Abdo RUQ tenderness on palpation without guarding or rebound tenderness A/P Acute cholecystitis with choledocholithiasis - revised cardiac risk index 2, 10.1% 30-day risk of , heart attack or cardiac arrest. She appears to be at acceptable risk for surgery and medically optimized at this time with no further preoperative workup required. Will defer to gastroenterology regarding need for ERCP since her LFTs are normal and no common bile duct dilatation although stones were seen on CT in the bile duct. Consult general surgery for definitive surgical management. Antibiotics with ceftriaxone and metronidazole IV Chronic congestive heart failure - appears currently euvolemic, monitor closely for shortness of breath and hypoxia with IV fluids which should be discontinued once patient is able to eat and drink post surgery. PG Care Time/CCT Total # of Minutes Spent Total Time Spent with Patient: Total time spent is greater than 50% in coordination of care (as documented) at patient's floor/unit and/or counseling patient: C[place] [address] INT INP/OBS CARE 3/75MIN Patient Type Established Medical Decision Making High Complexity Diagnoses Acute cholecystitis K81.0 CHF (congestive heart failure) I50.9 Invasive ductal carcinoma of breast C50.919 Stented coronary artery Z95.5 Hypercholesterolemia E78.00 Choledocholithiasis K80.50
[2023-03-30] MEDS ORDERED: ACETAMINOPHEN 1,000 MG/100 ML VIAL IV PRN (10:34)
[2023-03-30] MEDS ORDERED: metroNIDAZOLE 500 MG/100 ML BAG IV STA (10:47)
[2023-03-30] MEDS ORDERED: LACTATED RINGER'S 1,000 ML IV SCH (11:00)
[2023-03-30] MEDS ORDERED: NALOXONE HCL 0.4 MG/1 ML VIAL/CARP IV PRN ×2 (11:07→14:00)
[2023-03-30] MEDS ORDERED: INDOMETHACIN 50 MG SUPP PR ONE (11:19)
[2023-03-30 11:27] LABS: Appearance Urine Clear (Clear); Bilirubin Urine Negative (Negative); Blood Urine Negative (Negative); Color Urine Yellow; Glucose Urine UA Negative (Negative); Ketones Urine Negative (Negative); Leukocyte Esterase Urine 1+ (Negative); Nitrite Urine Negative (Negative); Protein Urine Negative (Negative); Specific Gravity Urine 1.021 (1.000-1.030); Urobilinogen Urine Negative (Negative)
[2023-03-30] MEDS: ONDANSETRON INJ 2 MG/ML 2 ML VIAL IV PRN ×2 (11:36→23:29)
[2023-03-30] MEDS: HYDROmorphone INJ 0.5 MG/0.5 ML SYR IV PRN ×2 (11:36→23:29)
--- NOTE | 2023-03-30 11:39 | Gastrointestinal Consultation ---
Date of Consultation March 30, 2023 Assessment & Plan (1) Acute cholecystitis: (2) Choledocholithiasis: Pt is a 88 yo female w hx of breast ca, large colon polyp, presented w RUQ abd pain and nausea, CT consistent with cholecystitis w choledocholithiasis. - NPO - IVF and IV antibiotics support - Plan for ERCP by Dr. Rogelio Dillard today - Surgery plans for cholecystectomy today as well - Further recs after ERCP completed Supervising Physician Co-Signing Physician Notes I saw and evaluated the patient. She presented with a history of abdominal pain and imaging notable for choledocholithiasis in addition to suspected cholecystitis. Gastroenterology has been consulted for ERCP for gallstone extraction prior to cholecystectomy. Impression:Patient presents with signs and symptoms related to choledocholithiasis and suspected cholecystitis. We are planning to proceed with ERCP today for Biliary decompression. I discussed the risks of the procedure with the patient and her daughter to include bleeding, infection, pain, failed biliary cannulation and need for follow-up studies. Plan ERCP History of Present Illness Reason for Consultation: Choledocholithiasis Requesting Physician: Dr. Maynor Marques Attending Physician: Dr. Rogelio Dillard History of Present Illness Pt is a 88 yo female w PMHx of Ischemic Cardiomyopathy (LVEF of 35%, breast cancer (currently on hormone therapy), CAD, CKD, hyperlipidemia, who presented to the [facility] ED w c/o RUQ abd pain assocaiged w back pain and nausea. No fever, chills, CP, SOB. Oon eval, no leukocytosis, LFTs and lipase are normal. CT abd/pelvis w signs of gallbladder distension + pericholecystic stranding suggestive of cholecystitis. + biliary ductal dilation w multiple common bile duct calculi.+ lesions in cecum and ileum, w skeletal metastases. She is scheduled for colonoscopy w EMR by Dr. West on 05/24/2023 Allergies Allergy/AdvReac Type Severity Reaction Status Date / Time ciprofloxacin [From Cipro] AdvReac Mild Nausea Verified 03/20/23 12:03 sulfamethoxazole AdvReac Mild Nausea Verified 03/20/23 12:03 [From Bactrim] trimethoprim [From Bactrim] AdvReac Mild Nausea Verified 03/20/23 12:03 Home Medications Medication Instructions Recorded Confirmed Type aspirin 81 mg tablet,delayed 0 mg PO QPM 10/16/22 03/30/23 History release atorvastatin 20 mg tablet 20 mg PO QPM 10/16/22 03/30/23 History cholecalciferol (vitamin D3) 50 0 mcg PO QAM 10/16/22 03/30/23 History mcg (2,000 unit) capsule escitalopram oxalate 5 mg tablet 5 mg PO QPM 10/16/22 03/30/23 History furosemide 40 mg tablet 40 mg PO DAILY PRN Weight Gain 10/16/22 03/30/23 History mecobalamin (vitamin B12) 1,000 0 mcg PO DAILY 10/16/22 03/30/23 History mcg chewable tablet potassium chloride 10 mEq 10 meq PO DAILY PRN Weight Gain 10/16/22 03/30/23 History capsule,extended release lorazepam 1 mg tablet 1 mg PO UD PRN Anxiety 12/09/22 03/30/23 History abemaciclib 50 mg tablet (Verzenio) 0 mg PO BID 12/29/22 03/30/23 History peg 3350-electrolytes 236 240 ml PO Q10M #4,000 mL 03/09/23 03/30/23 Rx gram-22.74 gram-6.74 gram-5.86 gram solution (GaviLyte-G) metoprolol succinate 25 mg 25 mg PO QPM 03/13/23 03/30/23 History tablet,extended release 24 hr multivitamin 0 tab PO DAILY 03/13/23 03/30/23 History ondansetron 8 mg disintegrating 8 mg PO TID PRN Nausea And Vomiting 03/30/23 03/30/23 History tablet Patient History Medical History Urinary urgency Prolapsed uterus no device GERD (gastroesophageal reflux disease) Anemia Cataract rt/left (current problem) Anxiety Hx of myocardial infarction 2017 Hypertension Hyperlipidemia CHF (congestive heart failure) followed by Dr. 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 Jhaveri>rt breast (no surgery) Skin, right breast mass, incisional biopsy: - Invasive ductal carcinoma - Histologic grade: Low - Tubules: 3/3 - Nuclei: 1/3 - Mitoses: 1/3 - In situ component: Present H/O wrist surgery right Family History Aunt Breast cancer Father Heart disease Brother Heart disease Colorectal cancer Mother Clotting disorder Other No family history of adverse response to anesthesia Social History Smoking Status: Never smoker Second Hand Exposure: No; Hx Alcohol Use: No Preferred Language: Japanese Communication Ability: Effective Maintenance Shop Welder Required: No Beliefs That Will Affect Care: Episcopalian Episcopalian Beliefs: restoration marital status: / Current Living Situation: Alone current occupational status: retired How many Children do You have: 1 Feels Safe at Home: Yes during the past year weight has: remained stable Assistive Devices: Denture - Upper and Glasses Review of Systems Review of Systems: All systems reviewed & are unremarkable except as noted in HPI & below Physical Exam Constitutional: WD/WN, vitals as above well groomed, cooperative and comfortable Eyes: PERRL, conjunctivae normal, anicteric sclerae ENMT: external ear and nose normal, oropharynx normal Respiratory: normal respiratory effort, lungs clear to auscultation Cardiovascular: RRR, no murmur, no edema Gastrointestinal (Abdomen): TTP RUQ, soft, BS hypoactive Skin: no rashes, warm and dry no jaundice Neurologic: Motor/Sensory: no asterixis Psychiatric: A+Ox3, euthymic affect Lymphatic: no lymphedema Results & Data Vital Signs (Past 12 Hours) Vital Signs Temp Pulse Pulse Resp BP BP Pulse Ox 03/30/23 11:00 77 18 129/76 97 03/30/23 09:55 77 18 123/52 L 96 03/30/23 08:24 36.7 C 68 18 143/70 H 99 O2 Del Method 03/30/23 11:00 Room Air 03/30/23 09:55 Room Air 03/30/23 08:24 Room Air
[2023-03-30 11:44] LABS: Bacteria Urine 4+ (Negative); RBC Urine 0-4 /hpf (0-4)
[2023-03-30 11:45] LABS: WBC Urine >30 /hpf (0-5)
[2023-03-30 11:54] LABS: Influenza A virus by PCR Negative (Neg); Influenza B virus by PCR Negative (Neg); RSV by PCR Negative (Neg); SARS CoV2 RNA(COVID-19) Ceph NEGATIVE (Negative)
--- NOTE | 2023-03-30 11:58 | XRay Report ---
XR chest 1V portable HISTORY: 88 years-old Female Pre-operative clearance preoperative exam COMPARISON: Chest CT 02/28/2023 TECHNIQUE: AP view of the chest FINDINGS: Extensive skeletal metastasis redemonstrated. Cardiomediastinal and hilar silhouettes are unchanged. Hiatal hernia. No pneumothorax, pleural effusion, airspace consolidation or pulmonary edema. IMPRESSION: 1. No acute process of the chest. 2. Hiatal hernia. 3. Extensive skeletal metastasis redemonstrated. ACT 112: Negative or not required by law. The above report was generated using voice recognition software. It may contain grammatical, syntax o r spelling errors. Electronically signed by: Damir Bay M.D. 03/30/2023 11:57 AM
--- NOTE | 2023-03-30 13:16 | Surgery Consultation ---
Date of Consultation March 30, 2023 Assessment & Plan (1) Choledocholithiasis: (2) Acute cholecystitis: Plan 88-year-old woman with acute cholecystitis and choledocholithiasis. I discussed with her the need for both ERCP and laparoscopic cholecystectomy. The sap administrator been consulted and have discussed with her the the procedure and risks and benefits of ERCP. I discussed the risks and benefits of a laparoscopic cholecystectomy. The plan will be to do a joint procedure in the operating room later today. All her questions were answered, she is agreeable to proceed. Consent has been obtained. We will take her to the operating room at the earliest convenience. History of Present Illness Reason for Consultation: Acute cholecystitis Requesting Physician: Maynor Marques MD Attending Physician: Artem Concepcion MD History of Present Illness 88-year-old woman presents with acute onset of sharp abdominal pain in the right upper quadrant presenting at 6 PM last night. This was accompanied with nausea and vomiting. She has never had pain like this in the past. She denies fevers or chills. The pain has been worsening. CT scan demonstrates acute cholecystitis with choledocholithiasis and chronically dilated biliary tree. Looking back, to further CT scans demonstrate choledocholithiasis. Her LFTs are normal. Her last meal was 6 PM. She has had an appendectomy in the past. Allergies Allergy/AdvReac Type Severity Reaction Status Date / Time ciprofloxacin [From Cipro] AdvReac Mild Nausea Verified 03/20/23 12:03 sulfamethoxazole AdvReac Mild Nausea Verified 03/20/23 12:03 [From Bactrim] trimethoprim [From Bactrim] AdvReac Mild Nausea Verified 03/20/23 12:03 Home Medications Medication Instructions Recorded Confirmed Type aspirin 81 mg tablet,delayed 0 mg PO QPM 10/16/22 03/30/23 History release atorvastatin 20 mg tablet 20 mg PO QPM 10/16/22 03/30/23 History cholecalciferol (vitamin D3) 50 0 mcg PO QAM 10/16/22 03/30/23 History mcg (2,000 unit) capsule escitalopram oxalate 5 mg tablet 5 mg PO QPM 10/16/22 03/30/23 History furosemide 40 mg tablet 40 mg PO DAILY PRN Weight Gain 10/16/22 03/30/23 History mecobalamin (vitamin B12) 1,000 0 mcg PO DAILY 10/16/22 03/30/23 History mcg chewable tablet potassium chloride 10 mEq 10 meq PO DAILY PRN Weight Gain 10/16/22 03/30/23 History capsule,extended release lorazepam 1 mg tablet 1 mg PO UD PRN Anxiety 12/09/22 03/30/23 History abemaciclib 50 mg tablet (Verzenio) 0 mg PO BID 12/29/22 03/30/23 History peg 3350-electrolytes 236 240 ml PO Q10M #4,000 mL 03/09/23 03/30/23 Rx gram-22.74 gram-6.74 gram-5.86 gram solution (GaviLyte-G) metoprolol succinate 25 mg 25 mg PO QPM 03/13/23 03/30/23 History tablet,extended release 24 hr multivitamin 0 tab PO DAILY 03/13/23 03/30/23 History ondansetron 8 mg disintegrating 8 mg PO TID PRN Nausea And Vomiting 03/30/23 History tablet Patient History Medical History Urinary urgency Prolapsed uterus no device GERD (gastroesophageal reflux disease) Anemia Cataract rt/left (current problem) Anxiety Hx of myocardial infarction 2017 Hypertension Hyperlipidemia CHF (congestive heart failure) followed by Dr. 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 Jhaveri>rt breast (no surgery) Skin, right breast mass, incisional biopsy: - Invasive ductal carcinoma - Histologic grade: Low - Tubules: 3/3 - Nuclei: 1/3 - Mitoses: 1/3 - In situ component: Present H/O wrist surgery right Family History Aunt Breast cancer Father Heart disease Brother Heart disease Colorectal cancer Mother Clotting disorder Other No family history of adverse response to anesthesia Social History Smoking Status: Never smoker Second Hand Exposure: No; Hx Alcohol Use: No Preferred Language: South African Communication Ability: Effective Community Engagement Coordinator Required: No Beliefs That Will Affect Care: Taoism Taoism Beliefs: alevism marital status: / Current Living Situation: Alone current occupational status: retired How many Children do You have: 1 Feels Safe at Home: Yes during the past year weight has: remained stable Assistive Devices: Denture - Upper and Glasses Review of Systems Review of Systems: All systems reviewed & are unremarkable except as noted in HPI & below Physical Exam Constitutional: WD/WN, vitals as above Eyes: PERRL, conjunctivae normal, anicteric sclerae Neck: trachea midline, no thyromegaly Respiratory: normal respiratory effort, lungs clear to auscultation Cardiovascular: RRR, no murmur, no edema Gastrointestinal (Abdomen): Inspection/Auscultation: abdomen normal to inspection; abdomen not distended Percussion/Palpation: + abdomen tender (RUQ/epigastrium) and abdomen soft; no guarding and abdomen not rigid Skin: no rashes, warm and dry Psychiatric: A+Ox3, euthymic affect Results & Data Vital Signs (Past 12 Hours) Vital Signs Temp Pulse Pulse Resp BP BP Pulse Ox 03/30/23 12:35 65 03/30/23 12:09 100 03/30/23 12:03 86 L 03/30/23 12:00 78 18 120/55 L 87 L 03/30/23 11:31 74 23 133/51 L 99 03/30/23 11:00 74 12 129/76 98 03/30/23 11:00 77 18 129/76 97 03/30/23 10:55 67 14 138/59 L 99 03/30/23 09:55 77 18 123/52 L 96 03/30/23 08:24 36.7 C 68 18 143/70 H 99 O2 Del Method O2 Flow Rate 03/30/23 12:35 03/30/23 12:09 Nasal Cannula 2 03/30/23 12:03 Room Air, Nasal Cannula 0 03/30/23 12:00 Room Air 03/30/23 11:31 03/30/23 11:00 01/26/24 11:00 Room Air 03/30/23 10:55 03/30/23 09:55 Room Air 03/30/23 08:24 Room Air Laboratory Results 03/30/23 03/30/23 Range/Units 10:55 08:30 WBC 5.58 (4.8-10.8) K/ul RBC 3.07 L (4.20-5.40) M/uL Hgb 9.0 L (12.0-16.0) g/dl Hct 29.0 L (37.0-47.0) % MCV 94.5 (80.0-100.0) fL MCH 29.3 (25.0-34.0) pg MCHC 31.0 L (32.0-36.0) g/dL RDW Std Deviation 63.7 H (36.4-46.3) fL RDW Coeff of Kirill 18.5 H (11.5-14.5) % Plt Count 204 (130-400) K/uL MPV 9.3 L (9.4-12.4) fL Immature Gran % (Auto) 0.4 % Neut % (Auto) 61.6 % Lymph % (Auto) 23.8 % [place] % (Auto) 9.1 % Eos % (Auto) 3.8 % Baso % (Auto) 1.3 % Neut # (Auto) 3.44 (1.40-6.50) K/uL Lymph # (Auto) 1.33 (1.20-3.40) K/uL [place] # (Auto) 0.51 (0.11-0.59) K/uL Eos # (Auto) 0.21 (0.00-0.50) K/uL Baso # (Auto) 0.07 (0.00-0.20) K/uL Immature Gran # (Auto) 0.02 (0.01-0.20) K/uL Sodium 138 (136-145) mmol/L Potassium 4.5 (3.5-5.1) mmol/L Chloride 107 (98-107) mmol/L Carbon Dioxide 22 (21-32) mmol/L Anion Gap 9 (3-11) BUN 40 H (6-23) mg/dl Creatinine 1.57 H (0.6-1.2) mg/dl Est Cr Clr Drug Dosing 23.1 ml/min Est GFR ( Amer) 34.2 ml/min Est GFR (Non-Af Amer) 29.5 ml/min BUN/Creatinine Ratio 25.5 H (10-20) Glucose 123 H (70-99(Fasting)) mg/dl Calcium 9.8 (8.6-10.3) mg/dl Magnesium 1.7 (1.7-2.4) mg/dl Total Bilirubin 0.4 (0.2-1.0) mg/dl Direct Bilirubin 0.1 (0-0.2) mg/dl AST 23 (13-39) U/L ALT 21 (7-52) U/L Alkaline Phosphatase 92 (34-104) U/L Troponin I High Sens 13.5 (0-14) pg/ml Total Protein 6.8 (6.0-8.3) gm/dl Albumin 4.1 (3.4-5.0) gm/dl Lipase 78 (11-82) U/L Urine Color Yellow Urine Appearance Clear (Clear) Urine pH 5.0 (4.5-7.5) Ur Specific [place] 1.021 (1.000-1.030) Urine Protein Negative (Negative) Urine Glucose (UA) Negative (Negative) Urine Ketones Negative (Negative) Urine Blood Negative (Negative) Urine Nitrite Negative (Negative) Urine Bilirubin Negative (Negative) Urine Urobilinogen Negative (Negative) Ur Leukocyte Esterase 1+ H (Negative) Urine WBC (Auto) Not Reportable Urine RBC 0-4 (0-4) /hpf Urine WBC >30 H (0-5) /hpf Ur Epithelial Cells 10-20 H (0-5) /lpf Urine Bacteria 4+ H (Negative) SARS-CoV-2 (PCR) NEGATIVE (Negative) Influenza Type A (PCR) Negative (Neg) Influenza Type B (PCR) Negative (Neg) RSV (RT-PCR) Negative (Neg) Diagnostic Findings CT OF THE ABDOMEN AND PELVIS WITH CONTRAST CLINICAL HISTORY: severe right sided abdo pain, recent colonoscopy COMPARISON STUDY: PET/CT December 20, 2022. CT of the abdomen and pelvis February 28, 2023. TECHNIQUE: Following IV administration of mL of Optiray, axial images of the abdomen and pelvis were obtained from the lung bases to the proximal femurs. Images were reviewed in the axial, sagittal, and coronal planes. IV contrast was administered without complication. Automated exposure control was utilized for the study. A dose lowering technique was utilized adhering to the principles of ALARA. CT DOSE: 1184.01 mGy.cm FINDINGS: 1.7 cm lesion within the upper outer quadrant of the right breast likely reflects the primary lesion. Moderate sized hiatal hernia is present. No pneumatosis, free air or portal venous gas. There is no evidence for a bowel obstruction. No bowel wall thickening is noted. There is sigmoid diverticulosis without evidence for acute diverticulitis. The appendix is surgically absent. Previously described 2.3 cm cecal mass is again noted. An additional intraluminal lesion within the ileum is noted on image 235. Spleen, adrenal glands and pancreas are unremarkable. There is mild bilateral renal cortical thinning. There is no hydronephrosis. Moderate to marked gallbladder distention has developed since prior exam. There is mild pericholecystic stranding. Multiple gallstones within the gallbladder are present. Moderate biliary ductal dilatation is similar to prior exam. Multiple common bile duct measure up to 5 mm. There is no pancreatic ductal dilatation. No evidence for acute pancreatitis by CT. There is no lymphadenopathy. 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 IMPRESSION: 1. Interval development of significant gallbladder distention with mild pericholecystic stranding. Cholelithiasis. The findings suggest acute cholecystitis. 2. No significant change in biliary ductal dilatation with redemonstration of multiple common bile duct calculi. 3. No pneumoperitoneum. No bowel obstruction. No bowel wall thickening. Redemonstration of the intraluminal lesions within the cecum and ileum. 4. No change in skeletal metastases. ACT 112: Negative or not required by law. Electronically signed by: Mayito Ricardo M.D. 03/30/2023 9:57 AM
[2023-03-30] MEDS ORDERED: DEXAMETHASONE SOD INJ 4 MG/ML VIAL ONE (13:35)
[2023-03-30] MEDS ORDERED: LIDOCAINE 2% 2 ML VIAL/AMP(20MG/ML) INFIL ONE (13:35)
[2023-03-30] MEDS ORDERED: PROPOFOL IV EMULSION 10 MG/ML 20 ML VIAL IV ONE (13:35)
[2023-03-30] MEDS ORDERED: ROCURONIUM BROMIDE 10 MG/ML 5 ML VIAL IV ONE ×2 (13:35→15:25)
[2023-03-30] MEDS ORDERED: ONDANSETRON INJ 2 MG/ML 2 ML VIAL ONE (13:35)
[2023-03-30] MEDS ORDERED: MIDAZOLAM HCL 1 MG/ML 2ML VIAL ONE (13:36)
[2023-03-30] MEDS ORDERED: fentaNYL citrate PF 100 MCG/2 ML VIAL ONE (13:36)
--- NOTE | 2023-03-30 13:38 | Anesthesiology Consultation ---
Date of Service March 30, 2023 Assessment & Plan Chart Review Chart Review: Acceptable Risk for Surgery and Patient NOT seen in Pre Admission Testing Consults Requested none ASA [id number] Proposed Anesthesia Anesthesia Type: General History Surgery Operation Date: 03/30/23 17:10 Proposed Procedures p Endoscopic Retrograde Cholangiopancreatogram - DO josué Corbett Laparoscopic Cholecystectomy - Tex Del Rio MD Height/Weight Height: 5 ft 5 in Weight: 61.5 kg Allergies Allergy/AdvReac Type Severity Reaction Status Date / Time ciprofloxacin [From Cipro] AdvReac Mild Nausea Verified 03/20/23 12:03 sulfamethoxazole AdvReac Mild Nausea Verified 03/20/23 12:03 [From Bactrim] trimethoprim [From Bactrim] AdvReac Mild Nausea Verified 03/20/23 12:03 Medications Home Medications Medication Instructions Recorded Confirmed Last Taken aspirin 81 mg tablet,delayed 0 mg PO QPM 10/16/22 03/30/23 03/19/23 release atorvastatin 20 mg tablet 20 mg PO QPM 10/16/22 03/30/23 03/19/23 cholecalciferol (vitamin D3) 50 0 mcg PO QAM 10/16/22 03/30/23 03/17/23 mcg (2,000 unit) capsule escitalopram oxalate 5 mg tablet 5 mg PO QPM 10/16/22 03/30/23 03/19/23 furosemide 40 mg tablet 40 mg PO DAILY PRN Weight Gain 10/16/22 03/30/23 Unknown mecobalamin (vitamin B12) 1,000 0 mcg PO DAILY 10/16/22 03/30/23 03/17/23 mcg chewable tablet potassium chloride 10 mEq 10 meq PO DAILY PRN Weight Gain 10/16/22 03/30/23 Unknown capsule,extended release lorazepam 1 mg tablet 1 mg PO UD PRN Anxiety 12/09/22 03/30/23 03/19/23 abemaciclib 50 mg tablet (Verzenio) 0 mg PO BID 12/29/22 03/30/23 03/19/23 peg 3350-electrolytes 236 240 ml PO Q10M #4,000 mL 03/09/23 03/30/23 03/20/23 gram-22.74 gram-6.74 gram-5.86 gram solution (GaviLyte-G) metoprolol succinate 25 mg 25 mg PO QPM 03/13/23 03/30/23 03/19/23 tablet,extended release 24 hr multivitamin 0 tab PO DAILY 03/13/23 03/30/23 03/17/23 ondansetron 8 mg disintegrating 8 mg PO TID PRN Nausea And Vomiting 03/30/23 03/30/23 Unknown tablet Active Medications Generic Name Dose Route Start Last Admin Trade Name Freq PRN Reason Stop Dose Admin Hydromorphone HCl 0.5 mg 03/30/23 10:34 03/30/23 11:36 Hydromorphone Inj 0.5 Mg/0.5 Ml Syr IV 04/13/23 10:33 0.5 mg Q4H PRN Administration Pain(5+) Ondansetron HCl 4 mg 03/30/23 11:02 03/30/23 11:36 Ondansetron Inj 2 Mg/Ml 2 Ml Vial IV 04/29/23 11:01 4 mg Q4H PRN Administration Nausea Past Medical History Medical History Urinary urgency Prolapsed uterus no device GERD (gastroesophageal reflux disease) Anemia Cataract rt/left (current problem) Anxiety Hx of myocardial infarction 2017 Hypertension Hyperlipidemia CHF (congestive heart failure) followed by Dr. 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 Jhaveri>rt breast (no surgery) Skin, right breast mass, incisional biopsy: - Invasive ductal carcinoma - Histologic grade: Low - Tubules: 3/3 - Nuclei: 1/3 - Mitoses: 1/3 - In situ component: Present H/O wrist surgery right Past Anesthesia History No Hx of Anesthesia Complications and No Family Hx of Anesthesia Complications History of PONV No Hx of PONV and No Hx of Motion Sickness Social History Smoking Status: Never smoker Hx Alcohol Use: No substance use type: does not use Physical Exam Vital Signs Last Vital Signs Temp 36.7 C 03/30/23 08:24 Pulse 65 03/30/23 12:35 Resp 18 03/30/23 12:00 BP 120/55 L 03/30/23 12:00 Pulse Ox 100 03/30/23 12:09 O2 Del Method Nasal Cannula 03/30/23 12:09 O2 Flow Rate 2 03/30/23 12:09 Testing Laboratory Results 03/30/23 08:30 03/30/23 08:30 Urine Color Yellow 03/30/23 10:55 Urine Appearance Clear (Clear) 03/30/23 10:55 Urine pH 5.0 (4.5-7.5) 03/30/23 10:55 Ur Specific [place] 1.021 (1.000-1.030) 03/30/23 10:55 Urine Protein Negative (Negative) 03/30/23 10:55 Urine Glucose (UA) Negative (Negative) 03/30/23 10:55 Urine Ketones Negative (Negative) 03/30/23 10:55 Urine Nitrite Negative (Negative) 03/30/23 10:55 Ur Leukocyte Esterase 1+ (Negative) H 03/30/23 10:55 Urine WBC (Auto) Not Reportable 03/30/23 10:55 Urine RBC 0-4 /hpf (0-4) 03/30/23 10:55 Urine WBC >30 /hpf (0-5) H 03/30/23 10:55 Ur Epithelial Cells 10-20 /lpf (0-5) H 03/30/23 10:55
--- NOTE | 2023-03-30 13:53 | Communication Note ---
Date of Service: March 30, 2023 EKG-NSR @ 68;LAD;LVH;poss. anterlat. infarct age ? CXR-NAD;extensive skeletal mets;H/H
[2023-03-30] MEDS ORDERED: ATROPINE SULFATE 0.1 MG/ML 10ML SYR IV PRN (14:00)
[2023-03-30] MEDS ORDERED: ONDANSETRON INJ 2 MG/ML 2 ML VIAL IV PRN (14:00)
[2023-03-30] MEDS ORDERED: FLUMAZENIL 0.1 MG/1 ML 10 ML VIAL IV PRN (14:00)
[2023-03-30] MEDS ORDERED: PROMETHAZINE HCL 12.5 MG in SODIUM CHLORIDE 0.9% 50 ML IV PRN (14:00)
[2023-03-30] MEDS ORDERED: fentaNYL citrate PF 100 MCG/2 ML VIAL IV PRN (14:00)
[2023-03-30] MEDS ORDERED: LABETALOL HCL IV 5 MG/ML 20ML IV PRN (14:00)
[2023-03-30] MEDS ORDERED: ePHEDrine sulfate 50 MG/ML AMP IV PRN (14:00)
[2023-03-30] MEDS ORDERED: BUPIVACAINE/EPINEPHRINE 0.5% MPF 1:200,000 30 ML VIAL ONE (14:06)
[2023-03-30] MEDS ORDERED: ePHEDrine sulfate 50 MG/ML AMP ONE (14:40)
--- NOTE | 2023-03-30 14:43 | GI REPORT ---
Patient Name: Wanda Tariq Procedure Date: 03/30/2023 1:46 PM Date of : 1935 Admit Type: Inpatient Age: 88 Gender: Female Attending MD: Rogelio Dillard DO, Procedure: ERCP Providers: Rogelio Dillard DO Referring MD: Artem Concepcion Md Indications: Abdominal pain of suspected biliary origin, Bile duct stone on Computed Tomogram Scan Medicines: General Anesthesia Complications: No immediate complications. Estimated blood loss: Minimal. Estimated Blood Loss: Estimated blood loss was minimal. Procedure: Pre-Anesthesia Assessment: - Prior to the procedure, a History and Physical was performed, and patient medications, allergies and sensitivities were reviewed. The patient's tolerance of previous anesthesia was reviewed. - The risks and benefits of the procedure and the sedation options and risks were discussed with the patient. All questions were answered and informed consent was obtained. - Patient identification and proposed procedure were verified prior to the procedure by the physician, the nurse and the brusher warp. The procedure was verified in the procedure room. - Pre-procedure physical examination revealed no contraindications to sedation. - ASA Grade Assessment: III - A patient with severe systemic disease. - After reviewing the risks and benefits, the patient was deemed in satisfactory condition to undergo the procedure. - The anesthesia plan was to use general anesthesia. - Immediately prior to administration of medications, the patient was re-assessed for adequacy to receive sedatives. - The heart rate, respiratory rate, oxygen saturations, blood pressure, adequacy of pulmonary ventilation, and response to care were monitored throughout the procedure. - The physical status of the patient was re-assessed after the procedure. After obtaining informed consent, the scope was passed under direct vision. Throughout the procedure, the patient's blood pressure, pulse, and oxygen saturations were monitored continuously.The ERCP was accomplished without difficulty. The patient tolerated the procedure well. The Duodenoscope was introduced through the mouth, and advanced to the duodenum and used to inject contrast into the bile duct and ventral pancreatic duct. Findings: The aluminum molding machine operator film was normal. The esophagus was successfully intubated under direct vision without detailed examination of the pharynx, larynx, and associated structures, and upper GI tract. The upper GI tract was grossly normal. The major papilla was bulging suggetive of an impacted stone in the distal CBD. The ventral pancreatic duct was inadvertently cannulated with the short-nosed traction sphincterotome and guidewire without any complications, this wire was left in place to aid in biliary cannulation and later place a prophylactic pancreatic stent. The bile duct was deeply cannulated with the short-nosed traction sphincterotome and 2nd guidewire. Contrast was injected. I personally interpreted the bile duct images. Contrast extended to the entire biliary tree. The main bile duct was moderately dilated, with a stone causing an obstruction. The largest diameter was 15 mm. The lower third of the main bile duct contained a single segmental stenosis 10 mm in length. Biliary sphincterotomy was made with a monofilament Fusion OMNI sphincterotome using ERBE electrocautery. There was no post-sphincterotomy bleeding. To discover objects, the biliary tree was swept with a 20 mm balloon starting at the bifurcation. Many large and small green pigmented stones were removed. No stones remained. One 5 Fr by 7 cm pancreatic stent with a full external pigtail and no internal flaps was placed 7 cm into the ventral pancreatic duct. Clear fluid flowed through the stent. The stent was in good position. For treatment of the distal biliary stricture, one 10 Fr by 6 cm covered metal stent was placed 6 cm into the common bile duct ([place] Vi[employer], [id number], [id number]). Bile flowed through the stent. The stent was in good position. The endoscope was withdrawn from the patient. Indomethacin 100 mg was given via suppository to decrease the risk of post-ERCP pancreatitis (PEP). Impression: - The major papilla appeared to be bulging. - A single segmental biliary stricture was found in the lower third of the main bile duct. The stricture was inflammatory. - The entire main bile duct was moderately dilated, with a stone causing an obstruction. - Choledocholithiasis was found. Complete removal was accomplished by biliary sphincterotomy and balloon extraction. - A biliary sphincterotomy was performed. - The biliary tree was swept. - One pancreatic stent was placed into the ventral pancreatic duct. - One covered metal stent was placed into the common bile duct. - Indomethacin given to decrease risk of post-ERCP pancreatitis. Recommendation: - Avoid aspirin and nonsteroidal anti-inflammatory medicines for 1 week. - Clear liquid diet today. - Repeat ERCP in 12 weeks to remove stent. - Cholecystectomy as planned by General Surgery. Marten Dillard, D.Maggi Dillard DO 03/30/2023 2:43:22 PM This report has been signed electronically. Note Initiated On: 03/30/2023 1:46 PM Number of Addenda: 0 I attest to the content of the Intraoperative Record and orders documented therein, exceptions below {[id number]}
--- NOTE | 2023-03-30 14:44 | Post Operative Brief Note ---
Immediate Post Op Note v1 Date of Surgery March 30, 2023 Pre & Post Diagnosis Operation Date: 03/30/23 17:10 Pre-Op Diagnosis: abdominal pain I identified the patient and participated in the time-out.: Yes Procedure Operation Date: 03/30/23 17:10 Actual Procedures p Endoscopic Retrograde Cholangiopancreato(Not Applicable) - Rogelio Dillard DO Surgeon Rogelio Dillard, DO Data Operations Director none Estimated Blood Loss 0 Findings Consistent with Post-Op Diagnosis
--- NOTE | 2023-03-30 14:45 | Communication Note ---
Date of Service: March 30, 2023 The patient underwent ERCP for choledocholithiasis. She was found to have a dilated common bile duct and numerous stones within the common bile duct. These were removed. Supplemental imaging to due to the distal common bile duct stricture we did place a covered metal stent for stricture remodeling. As we did cannulate the pancreatic duct during the examination a prophylactic pancreatic stent was also placed. Recommendation Avoid NSAIDs for 1 week Broad-spectrum antibiotic coverage for 10 days Cholecystectomy as planned by general surgery Repeat ERCP for stent removal in 8 to 12 weeks Please call with any additional questions or concerns GI to sign off.
[2023-03-30] MEDS ORDERED: ceFAZolin 330 MG/ML 1 GM VIAL ONE (14:48)
--- NOTE | 2023-03-30 15:00 | Fluoroscopy Report ---
[place] ERCP biliary ductal CLINICAL HISTORY: for ercp COMPARISON STUDY: CT of the abdomen and pelvis performed earlier today. FLUOROSCOPY TIME: 33 seconds. Ka, r: 7.43 mGy FLUOROSCOPIC IMAGES: 4 FINDINGS: Fluoroscopy was provided during ERCP. The common bile duct was cannulated. Filling defects within the common bile duct correspond to the calculi shown on CT. Balloon sweep through the common b ile duct was performed. Biliary and pancreatic stents were placed. IMPRESSION: Fluoroscopy provided during ERCP, as described above. ACT 112: Negative or not required by law. Electronically signed by: Mayito Ricardo M.D. 03/30/2023 2:59 PM
[2023-03-30] MEDS ORDERED: ceFAZolin 2000MG 2,000 MG/15 ML SYR IV ONE (15:17)
[2023-03-30] MEDS ORDERED: SUGAMMADEX SODIUM 200 MG/2 ML VIAL IV ONE (15:42)
[2023-03-30] MEDS ORDERED: SURGICEL ABSORB HEMOSTAT 2IN X 14IN TOP ONE (15:42)
--- NOTE | 2023-03-30 16:06 | Post Operative Brief Note ---
Immediate Post Op Note v1 Date of Surgery March 30, 2023 Pre & Post Diagnosis Operation Date: 03/30/23 17:10 Preop diagnosis: Acute cholecystitis Postop diagnosis: Same I identified the patient and participated in the time-out.: Yes Procedure Operation Date: 03/30/23 17:10 Laparoscopic cholecystectomy Surgeon Tex Del Rio MD Director Of Education And Training none Estimated Blood Loss 15 Findings Consistent with Post-Op Diagnosis Drains Keaton-Benites Drain (15Fr.)
--- NOTE | 2023-03-30 16:09 | Operative Report ---
Post Operative Report Pre & Post Diagnosis Operation Date: 03/30/23 17:10 Preop diagnosis: Acute cholecystitis Postop diagnosis: Same I identified the patient and participated in the time-out.: Yes Procedure Operation Date: 03/30/23 17:10 Laparoscopic cholecystectomy Surgeon Tex Del Rio MD Product Management Consultant none Estimated Blood Loss 15 Findings Consistent with Post-Op Diagnosis Severe acute cholecystitis with hydrops of the gallbladder Specimens Gallbladder Drains 15 [place] round ROSA Anesthesia Type General Complications No immediate complications Description of Procedure The patient was taken to the operating room, and placed supine on the operating table. An ERCP was completed by Dr. Dillard, the details of which are dictated in a separate operative note. Once this portion of the procedure was complete, the patient was repositioned supine on the operating table. A timeout was performed, perioperative antibiotics were administered, SCD boots were placed. After adequate anesthesia and analgesia was obtained, the abdomen was prepped and draped in the normal sterile fashion. Local anesthetic was injected into and around the proposed incision sites. An incision was made with a 15 blade scalpel in the supraumbilical region and carried down to the level of the fascia. The fascia was grasped with a trach hook, and a varies needle was used to enter the abdominal cavity. The abdomen was insufflated to a pressure of 15 mmHg, and a 11 mm trocar was placed in this location. A 10 mm, 30 degree laparoscope was placed into the abdominal cavity, and the abdomen was surveyed. The gallbladder was severely distended and taut with a significant acute inflammatory reaction around it including omental adhesions. Two 5 mm trochars were placed along the right costal margin, and one 5 mm trocar was placed in the subxiphoid region under direct visualization. The gallbladder was drained with an 18-gauge aspiration needle. The fluid was clear, indicating hydrops of the gallbladder. Omental adhesions to the gallbladder were taken down with judicious use of the electrocautery. The gallbladder was grasped and retracted cephalad and laterally, exposing the triangle of Calot. Dissection began in the triangle with a combination of blunt dissection with the [place] dissector, and judicious use of the hook cautery. The cystic duct and cystic artery were dissected free circumferentially, and a critical view of safety was obtained. The cystic duct and cystic artery were clipped and transected, and the gallbladder was removed from the gallbladder fossa with the hook cautery. The cystic duct was quite distended due to the choledocholithiasis, so an Endoloop was placed around the duct in addition to the clips. The camera was switched to a 5 mm, the gallbladder was placed in an Endo Catch bag, and removed via the supraumbilical port site. The camera was switched back to the 10 mm camera, and the abdomen was surveyed again. Hemostasis was checked and attended to with electrocautery and Surgicel for the liver bed. The abdomen was copiously irrigated and suctioned free. Again hemostasis was checked and was excellent. All trochars were removed under direct visualization. The abdomen was desuffl ated. The fascia in the 11 mm port site was closed with a 0 Vicryl suture. The skin was closed with a running 4-0 Monocryl subcuticular stitch. Dermabond was applied. The patient tolerated the procedure without complication, and was transferred in stable condition to the PACU. All instrument, needle, and sponge counts were correct at the end of the case. I attest to the content of the Intraoperative Record and any orders documented therein. Any exceptions are noted below.
--- NOTE | 2023-03-30 16:34 | Anesthesiology Progress Note ---
Date of Service March 30, 2023 Anesthesia Post Procedure Vital Signs Vital Signs: Temp Pulse Pulse Pulse Resp BP BP 03/30/23 16:16 97.9 F 73 16 166/67 H 03/30/23 12:35 65 03/30/23 12:09 03/30/23 12:03 03/30/23 12:00 78 18 120/55 L 03/30/23 11:31 74 23 133/51 L 03/30/23 11:00 74 12 129/76 03/30/23 11:00 77 18 03/30/23 10:55 67 14 138/59 L 03/30/23 09:55 77 18 03/30/23 08:24 98.1 F 68 18 143/70 H BP Pulse Ox O2 Del Method O2 Flow Rate 03/30/23 16:16 100 Oxymask 9 03/30/23 12:35 03/30/23 12:09 100 Nasal Cannula 2 03/30/23 12:03 86 L Room Air, Nasal Cannula 0 03/30/23 12:00 87 L Room Air 03/30/23 11:31 99 03/30/23 11:00 98 03/30/23 11:00 129/76 97 Room Air 03/30/23 10:55 99 03/30/23 09:55 123/52 L 96 Room Air 03/30/23 08:24 99 Room Air Transfer of Care Handoff Completed per policy Notes Mental Status: alert / awake / arousable and participated in evaluation Patient Amnestic to Procedure: Yes Nausea / Vomiting: adequately controlled Pain: adequately controlled Airway Patency, RR, SpO2: stable & adequate BP & HR: stable & adequate Hydration State: stable & adequate Anesthetic Complications: no major complications apparent and Pt Satisfied with anesthetic care
--- NOTE | 2023-03-30 16:53 | Anesthesiology Progress Note ---
Date of Service March 30, 2023 Anesthesia Post Procedure Vital Signs Vital Signs: Temp Pulse Pulse Pulse Resp BP BP 03/30/23 16:45 65 17 133/52 L 03/30/23 16:35 66 15 150/59 H 03/30/23 16:25 63 15 151/56 H 03/30/23 16:16 36.6 C 73 16 166/67 H 03/30/23 12:35 65 03/30/23 12:09 03/30/23 12:03 03/30/23 12:00 78 18 120/55 L 03/30/23 11:31 74 23 133/51 L 03/30/23 11:00 74 12 129/76 03/30/23 11:00 77 18 03/30/23 10:55 67 14 138/59 L 03/30/23 09:55 77 18 03/30/23 08:24 36.7 C 68 18 143/70 H BP Pulse Ox O2 Del Method O2 Flow Rate 03/30/23 16:45 95 Nasal Cannula 2 03/30/23 16:35 99 Oxymask 3 03/30/23 16:25 100 Oxymask 7 03/30/23 16:16 100 Oxymask 7 03/30/23 12:35 03/30/23 12:09 100 Nasal Cannula 2 03/30/23 12:03 86 L Room Air, Nasal Cannula 0 03/30/23 12:00 87 L Room Air 03/30/23 11:31 99 03/30/23 11:00 98 03/30/23 11:00 129/76 97 Room Air 03/30/23 10:55 99 03/30/23 09:55 123/52 L 96 Room Air 03/30/23 08:24 99 Room Air Transfer of Care Handoff Completed per policy Notes Mental Status: alert / awake / arousable and participated in evaluation Patient Amnestic to Procedure: Yes Nausea / Vomiting: adequately controlled Pain: adequately controlled Airway Patency, RR, SpO2: stable & adequate BP & HR: stable & adequate Hydration State: stable & adequate Anesthetic Complications: no major complications apparent and Pt Satisfied with anesthetic care
--- NOTE | 2023-03-30 17:31 | Electrocardiogram Report ---
Test Reason : Blood Pressure : / mmHG Vent. Rate : 066 BPM Atrial Rate : 066 BPM P-R Int : 188 ms QRS Dur : 084 ms QT Int : 406 ms P-R-T Axes : 000 -31 097 degrees QTc Int : 425 ms Normal sinus rhythm Left axis deviation Minimal voltage criteria for LVH, may be normal variant Poor R wave progression, consider anterior VA vs. lead placement vs. LVH Abnormal ECG When compared with ECG of 29-OCT-2014 21:41, Vent. rate has decreased BY 36 BPM Confirmed by Davion Salas ([id number]) on 03/30/2023 5:31:34 PM Referred By: REFERRED SELF Confirmed By:Diego Salas
[2023-03-30] MEDS: PLASMA-LYTE A 1,000 ML IV SCH (18:17)
[2023-03-30] MEDS: cefTRIAXone SODIUM 2,000 MG in DEXTROSE 5 % MINI-B 50 ML IV SCH (19:35)
--- NOTE | 2023-03-31 02:32 | Surgery Progress Note ---
Date of Service March 31, 2023 Assessment & Plan (1) Acute cholecystitis: (2) Choledocholithiasis: Plan POD #1 s/p ERCP/laparoscopic cholecystectomy Doing very well Advance diet as tolerated Encourage ambulation and incentive spirometry DVT prophylaxis with SCD boots, consider Lovenox tomorrow Check labs today Admission and Anticipated Discharge Date Admission Date: March 30, 2023 Subjective Doing well. Minimal pain. No nausea or vomiting. Tolerating clears Physical Exam Physical Exam: NAD, A&O x 3 AFVSS Abdomen: Soft, mild TTP Mild distention ROSA drain with serosanguineous drainage Results & Data Vital Signs (Past 12 Hours) Vital Signs Temp Pulse Pulse Pulse Resp BP Pulse Ox 03/31/23 00:47 03/30/23 23:06 36.6 C 76 16 114/65 99 03/30/23 20:14 36.5 C 63 18 126/70 99 03/30/23 19:16 36.6 C 60 18 152/66 H 99 03/30/23 18:35 100 03/30/23 18:15 100 03/30/23 18:15 62 18 147/64 H 100 03/30/23 18:04 03/30/23 17:45 63 16 154/63 H 100 03/30/23 17:15 36.5 C 71 71 18 124/57 L 96 03/30/23 16:55 36.7 C 70 17 138/55 L 99 03/30/23 16:45 65 17 133/52 L 95 03/30/23 16:35 66 15 150/59 H 99 03/30/23 16:25 63 15 151/56 H 100 03/30/23 16:16 36.6 C 73 16 166/67 H 100 O2 Del Method O2 Flow Rate 03/31/23 00:47 Nasal Cannula 2 03/30/23 23:06 Nasal Cannula 2 03/30/23 20:14 Nasal Cannula 2 03/30/23 19:16 Nasal Cannula 2 03/30/23 18:35 Room Air 03/30/23 18:15 Nasal Cannula 1 03/30/23 18:15 Room Air 1 03/30/23 18:04 Nasal Cannula 2 03/30/23 17:45 Nasal Cannula 2 03/30/23 17:15 Nasal Cannula 2 03/30/23 16:55 Nasal Cannula 2 03/30/23 16:45 Nasal Cannula 2 03/30/23 16:35 Oxymask 3 03/30/23 16:25 Oxymask 7 03/30/23 16:16 Oxymask 7
[2023-03-31] MEDS: PLASMA-LYTE A 1,000 ML IV SCH (05:37)
[2023-03-31] MEDS: HYDROmorphone INJ 0.5 MG/0.5 ML SYR IV PRN ×4 (05:38→21:11)
[2023-03-31] MEDS: ONDANSETRON INJ 2 MG/ML 2 ML VIAL IV PRN (05:38)
[2023-03-31 07:11] LABS: Basophils # (auto) 0.01 K/uL (0.00-0.20); Basophils % (auto) 0.2 %; Hematocrit (blood only) 23.1 % (37.0-47.0); Hemoglobin 7.4 g/dl (12.0-16.0); Immature Granulocytes # (auto) 0.01 K/uL (0.01-0.20); Immature Granulocytes % (auto) 0.2 %; Lymphocytes % (auto) 11.4 %; Mean Corpuscular Hemoglobin 29.8 pg (25.0-34.0); Mean Corpuscular Volume 93.1 fL (80.0-100.0); Mean Platelet Volume 9.1 fL (9.4-12.4); Monocytes # (auto) 0.34 K/uL (0.11-0.59); Monocytes % (auto) 7.8 %; Neutrophils # (auto) 3.51 K/uL (1.40-6.50); Neutrophils % (auto) 80.4 %; Platelet Count 164 K/uL (130-400); RDW Coefficient of Variation 18.6 % (11.5-14.5); RDW Standard Deviation 63.6 fL (36.4-46.3); Red Blood Count 2.48 M/uL (4.20-5.40); White Blood Count 4.37 K/ul (4.8-10.8)
[2023-03-31 07:18] LABS: Albumin Level 3.3 gm/dl (3.4-5.0); BUN Creatinine Ratio 22.5 (10-20); Bilirubin Direct 0.2 mg/dl (0-0.2); Bilirubin,Total 0.3 mg/dl (0.2-1.0); Calcium 9.1 mg/dl (8.6-10.3); Creatinine Clr Calc Pharmacy 24.1 ml/min; Est GFR (African American) 35.9 ml/min; Potassium 5.4 mmol/L (3.5-5.1); Total Protein 5.8 gm/dl (6.0-8.3)
[2023-03-31 07:45] LABS: Polychromasia 1+
--- NOTE | 2023-03-31 14:35 | Hospitalist Progress Note ---
Date of Service March 31, 2023 Assessment & Plan (1) Acute cholecystitis: Plan: -CT of the abd/pelvis w/con shows signs consistent with acute cholecystitis -S/p ERCP and laparoscopic cholecystectomy 03/30 -S/P one dose of Cefoxitin and 500 mL NSS in the ED -Ceftriaxone - can likely be discontinued from surgical perspective, but will keep for now for +UCx -Pain control with Tylenol and Dilaudid -prn Narcan ordered -PL at 80 mL/hr x 2 bags -BL SARAH's for DVT ppx, hold chemical PPX for now, consider lovenox tomorrow -AM CBC, CMP (2) Choledocholithiasis: (3) Hyperkalemia: Plan: -Recheck K 03/31 PM, patient reports not taking her home lasix or potassium supplementation recently (4) Anemia: Plan: -Trend CBC - recheck 03/31 PM -Will hold on transfusion at this time (5) Positive urine culture: Plan: -Reports hx of UTIs, though no obvious symptoms c/w UTI. Denies dysuria but has been having abdominal pain (though likely from cholecystitis) -Will continue ceftriaxone for now for possible UTI (6) CHF (congestive heart failure): Plan: -LVEF of 35% as of 06/2021 -Appears euvolemic on exam -Hold Entresto (will need to clarify if this is indeed a home medication) and lasix (7) Invasive ductal carcinoma of breast: Plan: -Resume home BID Verzenio 03/31 (8) Stented coronary artery: Plan: -Resume Aspirin 03/31 (9) Hypercholesterolemia: Plan: -Resume home statin 03/31 (10) Anxiety: Plan: -Resume home escitalopram and as needed lorazepam 03/31 Admission and Anticipated Discharge Date Admission Date: March 30, 2023 Subjective Reports she still has some mild abdominal discomfort. Denies any bowel movement since surgery and unsure if she is passing any gas. She has been able to void since surgery. She is tolerating her clear liquid diet well. Denies any lightheadedness/dizziness, chest pain, or shortness of breath. Denies any dysuria. States she is using her incentive spirometer which sometimes makes her feel bit tired Review of Systems Review of Systems: Per subjective Physical Exam Physical Exam: General: Nontoxic-appearing, NAD HEENT: Normal conjunctivae Cardiovascular: RRR, no M/R/G Pulmonary: CTAB, no W/R/R Abdomen: Soft, mild TTP, no guarding, ROSA drain in place draining serosanguineous fluid Extremities: Moving all extremities, no pedal edema Integumentary: No suspicious rash or lesion on exposed skin Neurologic: AAOx3, no focal deficits Psychiatric: Appropriate mood/affect Results & Data Results & Data Vital Signs (Past 12 Hours) Vital Signs Temp Pulse Resp BP Pulse Ox O2 Del Method 03/31/23 11:53 36.6 C 80 15 109/53 L 94 Room Air 03/31/23 08:00 Room Air 03/31/23 06:55 36.4 C L 67 15 107/59 L 95 Room Air 03/31/23 03:51 36.7 C 67 16 115/67 99 Room Air Laboratory Results Reviewed labs from today including CBC, CMPnotable for drop in hemoglobin to 7.4, leukopenia, increase in potassium to 5.4, creatinine stable at 1.51, increase in AST and ALT to 89 and 83 respectively Urine culture 03/30 growing GNR PG Care Time/CCT Total # of Minutes Spent Total Time Spent with Patient: Total time spent is greater than 50% in coordination of care (as documented) at patient's floor/unit and/or counseling patient: Coding Level of Care Code 97879 SUB INP/OBS CARE 3/50MIN Diagnoses Acute cholecystitis K81.0 Choledocholithiasis K80.50 Hyperkalemia E87.5 Anemia D64.9 Positive urine culture R82.79 CHF (congestive heart failure) I50.9 Invasive ductal carcinoma of breast C50.919 Stented coronary artery Z95.5 Hypercholesterolemia E78.00 Anxiety F41.9
[2023-03-31 14:40] LABS: Hematocrit (blood only) 23.9 % (37.0-47.0); Hemoglobin 7.3 g/dl (12.0-16.0); Mean Corpuscular Hemoglobin 29.4 pg (25.0-34.0); Mean Corpuscular Hgb Conc 30.5 g/dL (32.0-36.0); Mean Corpuscular Volume 96.4 fL (80.0-100.0); Mean Platelet Volume 9.2 fL (9.4-12.4); Platelet Count 168 K/uL (130-400); RDW Standard Deviation 67.1 fL (36.4-46.3); Red Blood Count 2.48 M/uL (4.20-5.40); White Blood Count 4.91 K/ul (4.8-10.8)
[2023-03-31] MEDS ORDERED: LORazepam 1 MG TAB PO PRN (14:52)
[2023-03-31 14:57] LABS: BUN Creatinine Ratio 21.8 (10-20); Calcium 8.9 mg/dl (8.6-10.3); Creatinine Clr Calc Pharmacy 23.3 ml/min; Est GFR (African American) 34.5 ml/min; Est GFR (Non-African American) 29.8 ml/min; Potassium 4.3 mmol/L (3.5-5.1)
[2023-03-31] MEDS: cefTRIAXone SODIUM 2,000 MG in DEXTROSE 5 % MINI-B 50 ML IV SCH (18:08)
[2023-03-31] MEDS: VALSARTAN/SACUBITRIL 51/49 MG TAB PO SCH (20:32)
[2023-03-31] MEDS: ESCITALOPRAM OXALATE 10 MG TAB PO SCH (20:33)
[2023-03-31] MEDS: ASPIRIN 81 MG ECTAB PO SCH (20:34)
[2023-03-31] MEDS: ATORVASTATIN 20 MG TAB PO SCH (20:34)
[2023-03-31] MEDS: ABEMACICLIB PO SCH (20:35)
[2023-04-01] MEDS: HYDROmorphone INJ 0.5 MG/0.5 ML SYR IV PRN ×3 (03:43→12:54)
[2023-04-01 06:38] LABS: Basophils # (auto) 0.02 K/uL (0.00-0.20); Basophils % (auto) 0.4 %; Eosinophils # (auto) 0.09 K/uL (0.00-0.50); Eosinophils % (auto) 1.9 %; Hematocrit (blood only) 23.8 % (37.0-47.0); Hemoglobin 7.3 g/dl (12.0-16.0); Immature Granulocytes # (auto) 0.01 K/uL (0.01-0.20); Immature Granulocytes % (auto) 0.2 %; Lymphocytes # (auto) 1.44 K/uL (1.20-3.40); Lymphocytes % (auto) 29.8 %; Mean Corpuscular Hemoglobin 29.3 pg (25.0-34.0); Mean Corpuscular Hgb Conc 30.7 g/dL (32.0-36.0); Mean Corpuscular Volume 95.6 fL (80.0-100.0); Mean Platelet Volume 9.2 fL (9.4-12.4); Monocytes # (auto) 0.52 K/uL (0.11-0.59); Monocytes % (auto) 10.8 %; Neutrophils # (auto) 2.75 K/uL (1.40-6.50); Neutrophils % (auto) 56.9 %; Platelet Count 166 K/uL (130-400); RDW Coefficient of Variation 19.6 % (11.5-14.5); RDW Standard Deviation 68.3 fL (36.4-46.3); Red Blood Count 2.49 M/uL (4.20-5.40); White Blood Count 4.83 K/ul (4.8-10.8)
[2023-04-01 07:06] LABS: Anisocytosis Present; Ovalocytes 1+
[2023-04-01 07:10] LABS: Albumin Level 3.2 gm/dl (3.4-5.0); BUN Creatinine Ratio 21.6 (10-20); Bilirubin Direct 0.1 mg/dl (0-0.2); Bilirubin,Total 0.3 mg/dl (0.2-1.0); Creatinine Clr Calc Pharmacy 26.1 ml/min; Est GFR (African American) 39.7 ml/min; Est GFR (Non-African American) 34.2 ml/min; Potassium 4.5 mmol/L (3.5-5.1); Total Protein 5.5 gm/dl (6.0-8.3)
[2023-04-01] MEDS: VALSARTAN/SACUBITRIL 51/49 MG TAB PO SCH ×2 (08:03→20:17)
[2023-04-01] MEDS: CHOLECALCIFEROL 25 MCG (1000 UNITS) TAB PO SCH (08:03)
[2023-04-01] MEDS: ABEMACICLIB PO SCH (09:13)
--- NOTE | 2023-04-01 13:53 | Surgery Progress Note ---
Date of Service April 01, 2023 Assessment & Plan (1) Acute cholecystitis: (2) Choledocholithiasis: Plan POD #2 s/p ERCP/laparoscopic cholecystectomy Doing very well Advance diet as tolerated Encourage ambulation and incentive spirometry DVT prophylaxis with SCD boots, consider Lovenox tomorrow Check labs tomorrow Probable DC ROSA drain tomorrow Admission and Anticipated Discharge Date Admission Date: March 30, 2023 Subjective Some pain in the right side today. No nausea or vomiting. Tolerating clears. Physical Exam Physical Exam: NAD, A&O x 3 AFVSS Abdomen: Soft, mild TTP Mild distention ROSA drain with serosanguineous drainage Results & Data Vital Signs (Past 12 Hours) Vital Signs Temp Pulse Resp BP Pulse Ox O2 Del Method 04/01/23 06:53 36.8 C 85 16 114/57 L 94 Room Air Laboratory Results 04/01/23 03/31/23 Range/Units 06:02 14:14 WBC 4.83 4.91 (4.8-10.8) K/ul RBC 2.49 L 2.48 L (4.20-5.40) M/uL Hgb 7.3 L 7.3 L (12.0-16.0) g/dl Hct 23.8 L 23.9 L (37.0-47.0) % MCV 95.6 96.4 (80.0-100.0) fL MCH 29.3 29.4 (25.0-34.0) pg MCHC 30.7 L 30.5 L (32.0-36.0) g/dL RDW Std Deviation 68.3 H 67.1 H (36.4-46.3) fL RDW Coeff of Kirill 19.6 H 19.0 H (11.5-14.5) % Plt Count 166 168 (130-400) K/uL MPV 9.2 L 9.2 L (9.4-12.4) fL Immature Gran % (Auto) 0.2 % Neut % (Auto) 56.9 % Lymph % (Auto) 29.8 % [place] % (Auto) 10.8 % Eos % (Auto) 1.9 % Baso % (Auto) 0.4 % Neut # (Auto) 2.75 (1.40-6.50) K/uL Lymph # (Auto) 1.44 (1.20-3.40) K/uL [place] # (Auto) 0.52 (0.11-0.59) K/uL Eos # (Auto) 0.09 (0.00-0.50) K/uL Baso # (Auto) 0.02 (0.00-0.20) K/uL Immature Gran # (Auto) 0.01 (0.01-0.20) K/uL Anisocytosis Present Ovalocytes 1+ Sodium 140 139 (136-145) mmol/L Potassium 4.5 4.3 D (3.5-5.1) mmol/L Chloride 109 H 107 (98-107) mmol/L Carbon Dioxide 26 23 (21-32) mmol/L Anion Gap 5 9 (3-11) BUN 30 H 34 H (6-23) mg/dl Creatinine 1.39 H 1.56 H (0.6-1.2) mg/dl Est Cr Clr Drug Dosing 26.1 23.3 ml/min Est GFR ( Amer) 39.7 34.5 ml/min Est GFR (Non-Af Amer) 34.2 29.8 ml/min BUN/Creatinine Ratio 21.6 H 21.8 H (10-20) Glucose 94 137 H (70-99(Fasting)) mg/dl Calcium 9.0 8.9 (8.6-10.3) mg/dl Total Bilirubin 0.3 (0.2-1.0) mg/dl Direct Bilirubin 0.1 (0-0.2) mg/dl AST 41 H (13-39) U/L ALT 48 (7-52) U/L Alkaline Phosphatase 74 (34-104) U/L Total Protein 5.5 L (6.0-8.3) gm/dl Albumin 3.2 L (3.4-5.0) gm/dl
--- NOTE | 2023-04-01 14:43 | Hospitalist Progress Note ---
Date of Service April 01, 2023 Assessment & Plan (1) Acute cholecystitis: Plan: -CT of the abd/pelvis w/con shows signs consistent with acute cholecystitis -S/p ERCP and laparoscopic cholecystectomy 03/30 -S/P one dose of Cefoxitin and 500 mL NSS in the ED -Ceftriaxone - can be discontinued from surgical perspective - will de-escalate to 1g daily for UTI tx -Pain control with Tylenol and Dilaudid -prn Narcan ordered -Completed PL at 80 mL/hr x 2 bags -BL SARAH's for DVT ppx, hold chemical PPX for now, consider lovenox tomorrow per surgery -Likely D/c ROSA drain tomorrow per surgery -ADAT -LFTs improving, anemia stable -AM CBC, CMP (2) Choledocholithiasis: (3) Anemia: Plan: Normocytic -Trend CBC -Will hold on transfusion at this time (4) Positive urine culture: Plan: E.coli (and lactobacillus species) from 03/30 -Reports hx of UTIs, though no obvious symptoms c/w UTI. Denies dysuria but has been having abdominal pain (though likely from cholecystitis) -Will continue ceftriaxone for now for possible UTI (5) CHF (congestive heart failure): Plan: -LVEF of 35% as of 06/2021 -Appears euvolemic on exam -Resumed home Entresto 03/31 -Holding home PRN lasix and metoprolol (6) Invasive ductal carcinoma of breast: Plan: -Resumed home BID Verzenio 03/31 (7) Stented coronary artery: Plan: -Resumed Aspirin 03/31 (8) Hypercholesterolemia: Plan: -Resumed home statin 03/31 (9) Anxiety: Plan: -Resumed home escitalopram and as needed lorazepam 03/31 Admission and Anticipated Discharge Date Admission Date: March 30, 2023 Subjective Patient endorsing diffuse abdominal pain this morning. States she has been passing gas but denies any bowel movement yet. Has been voiding well since surgery. Denies any chest pain or shortness of breath - trying to use incentive spirometry device but not as much as she would like. Denies any lightheadedness or dizziness. Did fairly well eating her breakfast. Review of Systems Review of Systems: Per subjective Physical Exam Physical Exam: General: Nontoxic-appearing, NAD HEENT: Normal conjunctivae Cardiovascular: RRR, no M/R/G Pulmonary: CTAB, no W/R/R Abdomen: Soft, mild TTP, mild distension, no guarding, ROSA drain in place draining serosanguineous fluid Extremities: Moving all extremities, no pedal edema Integumentary: No suspicious rash or lesion on exposed skin Neurologic: AAOx3, no focal deficits Psychiatric: Appropriate mood/affect Results & Data Results & Data Vital Signs (Past 12 Hours) Vital Signs Temp Pulse Resp BP Pulse Ox O2 Del Method 04/01/23 06:53 36.8 C 85 16 114/57 L 94 Room Air Laboratory Results Reviewed CBC, BMP, and LFTsnotable for anemia stable at hemoglobin 7.3, potassium stable at 4.5, creatinine improved to 1.39, AST and ALT improving to 41 and 48 respectively Urine culture 03/30 with pansensitive E. coli and lactobacillus species (60,000 cfu/ml) PG Care Time/CCT Total # of Minutes Spent Total Time Spent with Patient: Total time spent is greater than 50% in coordination of care (as documented) at patient's floor/unit and/or counseling patient: Coding Level of Care Code 06953 SUB INP/OBS CARE 3/50MIN Diagnoses Acute cholecystitis K81.0 Choledocholithiasis K80.50 Anemia D64.9 Positive urine culture R82.79 CHF (congestive heart failure) I50.9 Invasive ductal carcinoma of breast C50.919 Stented coronary artery Z95.5 Hypercholesterolemia E78.00 Anxiety F41.9
[2023-04-01] MEDS: VERZENIO PO SCH ×3 (16:21→20:17)
[2023-04-01] MEDS: cefTRIAXone SODIUM 1,000 MG in DEXTROSE 5 % MINI-B 50 ML IV SCH (16:27)
[2023-04-01] MEDS: oxyCODONE HCL IR 5 MG TAB (IMMEDIATE RELEASE) PO PRN ×2 (16:30→23:36)
[2023-04-01] MEDS: ASPIRIN 81 MG ECTAB PO SCH (20:16)
[2023-04-01] MEDS: ACETAMINOPHEN 500 MG TAB PO SCH (20:17)
[2023-04-01] MEDS: ESCITALOPRAM OXALATE 10 MG TAB PO SCH (20:17)
[2023-04-01] MEDS: ATORVASTATIN 20 MG TAB PO SCH (20:17)
[2023-04-02 06:30] LABS: Basophils # (auto) 0.04 K/uL (0.00-0.20); Basophils % (auto) 0.7 %; Eosinophils # (auto) 0.15 K/uL (0.00-0.50); Eosinophils % (auto) 2.8 %; Hematocrit (blood only) 25.3 % (37.0-47.0); Hemoglobin 7.9 g/dl (12.0-16.0); Immature Granulocytes # (auto) 0.02 K/uL (0.01-0.20); Immature Granulocytes % (auto) 0.4 %; Mean Corpuscular Hemoglobin 29.9 pg (25.0-34.0); Mean Corpuscular Hgb Conc 31.2 g/dL (32.0-36.0); Mean Corpuscular Volume 95.8 fL (80.0-100.0); Mean Platelet Volume 8.9 fL (9.4-12.4); Monocytes # (auto) 0.38 K/uL (0.11-0.59); Monocytes % (auto) 7.1 %; Platelet Count 172 K/uL (130-400); RDW Coefficient of Variation 19.4 % (11.5-14.5); RDW Standard Deviation 68.9 fL (36.4-46.3); Red Blood Count 2.64 M/uL (4.20-5.40); White Blood Count 5.39 K/ul (4.8-10.8)
[2023-04-02 06:39] LABS: Albumin Level 3.5 gm/dl (3.4-5.0); BUN Creatinine Ratio 19.2 (10-20); Bilirubin Direct 0.1 mg/dl (0-0.2); Bilirubin,Total 0.4 mg/dl (0.2-1.0); Calcium 9.3 mg/dl (8.6-10.3); Creatinine Clr Calc Pharmacy 23.3 ml/min; Est GFR (African American) 34.5 ml/min; Est GFR (Non-African American) 29.8 ml/min; Potassium 4.2 mmol/L (3.5-5.1); Total Protein 6.2 gm/dl (6.0-8.3)
[2023-04-02 06:58] LABS: Polychromasia 1+
[2023-04-02] MEDS: VERZENIO PO SCH ×2 (08:21→20:38)
[2023-04-02] MEDS: ACETAMINOPHEN 500 MG TAB PO SCH ×3 (08:22→20:37)
[2023-04-02] MEDS: VALSARTAN/SACUBITRIL 51/49 MG TAB PO SCH ×2 (08:23→20:39)
[2023-04-02] MEDS: CHOLECALCIFEROL 25 MCG (1000 UNITS) TAB PO SCH (08:23)
--- NOTE | 2023-04-02 08:44 | Surgery Progress Note ---
Date of Service April 02, 2023 Assessment & Plan (1) Acute cholecystitis: (2) Choledocholithiasis: Plan POD #3 s/p ERCP/laparoscopic cholecystectomy Doing very well Advance diet to heart healthy Encourage ambulation and incentive spirometry DVT prophylaxis with SCD boots, Lovenox Will remove ROSA drain today Admission and Anticipated Discharge Date Admission Date: March 30, 2023 Subjective Doing well today. Still have some gas pain. Tolerating full liquid diet. No nausea or vomiting. No fevers. Physical Exam Physical Exam: NAD, A&O x 3 AFVSS Abdomen: Soft, mild TTP Mild distention ROSA drain with serosanguineous drainage Results & Data Vital Signs (Past 12 Hours) Vital Signs Temp Pulse Resp BP Pulse Ox O2 Del Method 04/02/23 07:11 36.8 C 69 18 113/65 98 Room Air Laboratory Results 04/02/23 Range/Units 06:04 WBC 5.39 (4.8-10.8) K/ul RBC 2.64 L (4.20-5.40) M/uL Hgb 7.9 L (12.0-16.0) g/dl Hct 25.3 L (37.0-47.0) % MCV 95.8 (80.0-100.0) fL MCH 29.9 (25.0-34.0) pg MCHC 31.2 L (32.0-36.0) g/dL RDW Std Deviation 68.9 H (36.4-46.3) fL RDW Coeff of Kirill 19.4 H (11.5-14.5) % Plt Count 172 (130-400) K/uL MPV 8.9 L (9.4-12.4) fL Immature Gran % (Auto) 0.4 % Neut % (Auto) 50.0 % Lymph % (Auto) 39.0 % [place] % (Auto) 7.1 % Eos % (Auto) 2.8 % Baso % (Auto) 0.7 % Neut # (Auto) 2.70 (1.40-6.50) K/uL Lymph # (Auto) 2.10 (1.20-3.40) K/uL [place] # (Auto) 0.38 (0.11-0.59) K/uL Eos # (Auto) 0.15 (0.00-0.50) K/uL Baso # (Auto) 0.04 (0.00-0.20) K/uL Immature Gran # (Auto) 0.02 (0.01-0.20) K/uL Polychromasia 1+ Sodium 139 (136-145) mmol/L Potassium 4.2 (3.5-5.1) mmol/L Chloride 107 (98-107) mmol/L Carbon Dioxide 25 (21-32) mmol/L Anion Gap 7 (3-11) BUN 30 H (6-23) mg/dl Creatinine 1.56 H (0.6-1.2) mg/dl Est Cr Clr Drug Dosing 23.3 ml/min Est GFR ( Amer) 34.5 ml/min Est GFR (Non-Af Amer) 29.8 ml/min BUN/Creatinine Ratio 19.2 (10-20) Glucose 100 H (70-99(Fasting)) mg/dl Calcium 9.3 (8.6-10.3) mg/dl Total Bilirubin 0.4 (0.2-1.0) mg/dl Direct Bilirubin 0.1 (0-0.2) mg/dl AST 35 (13-39) U/L ALT 42 (7-52) U/L Alkaline Phosphatase 87 (34-104) U/L Total Protein 6.2 (6.0-8.3) gm/dl Albumin 3.5 (3.4-5.0) gm/dl
[2023-04-02] MEDS ORDERED: ENOXAPARIN INJ 40 MG/0.4 ML SYR SQ SCH (10:00)
--- NOTE | 2023-04-02 10:17 | Hospitalist Progress Note ---
Date of Service April 02, 2023 Assessment & Plan (1) Acute cholecystitis: Plan: -CTAP: Shows signs consistent with acute cholecystitis -S/p ERCP (Dr. Dillard) and laparoscopic cholecystectomy (Dr. Bragg) 03/30 - Avoid NSAIDs for 1 week (until 04/06) - ERCP for stent removal in 8 to 12 weeks -General Surgery Consulted - advanced diet as tolerated - ROSA drained removed 04/02 - DVT proh: Lovenox and SCDs - Discussion with Dr. Del Rio 04/02 - pt does not need abx from a gallbladder prespective -Pain control with Tylenol and Dilaudid -LFTs WNL, anemia stable -Encourage IS -PT/OT as patient reports feeling weak (2) Choledocholithiasis: Plan: see cholecystitis (3) Anemia: Plan: Chronic, Normocytic -Stable - Has been followed by heme/onc for this -Will hold on transfusion at this time (4) Positive urine culture: Plan: Urine Culture: E.coli (and lactobacillus species) -Reports hx of UTIs, though no obvious symptoms c/w UTI. Denies dysuria but has been having abdominal pain (though likely from cholecystitis) -Will continue ceftriaxone 1g daily (first day 03/30) (5) CHF (congestive heart failure): Plan: -LVEF of 35% as of 06/2021 -Appears euvolemic on exam -Resumed home Entresto 03/31 -Holding home PRN lasix and metoprolol (6) Invasive ductal carcinoma of breast: Plan: -Resumed home BID Verzenio 03/31 (7) Stented coronary artery: Plan: -Resumed Aspirin 03/31 (8) Hypercholesterolemia: Plan: -Resumed home statin 03/31 (9) Anxiety: Plan: -Resumed home escitalopram and as needed lorazepam 03/31 Plan Dispo: continued inpatient stay DVT proh: Lovenox and SCDs Admission and Anticipated Discharge Date Admission Date: March 30, 2023 Subjective 0945 - patient seen sitting up in bed, seen by surgery already this morning and had drain removed. Reports gas pain, still present but improved from yesterday. no BM since surgery. Lives alone in senior housing on the first floor - independent was not using a walker. reports that she has felt more weak in the hospital, requiring a walker. 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 UTI - denies symptoms. Denies CP or SOB Review of Systems Review of Systems: All systems reviewed & are unremarkable except as noted in HPI & below Physical Exam 2 Physical Exam: General: NAD, siting up in bed, VS as above Resp: normal respiratory effort, decreased in bases CV: RRR, no murmur, Abd: normal bowel sounds, mild generalized tenderness, no hepatosplenomegaly. Bruising around umbilical port site, dressing c/d/i Extremities: Moves all extremities, no edema, SCDs in place Neuro: A&O x3, Results & Data Results & Data Vital Signs (Past 12 Hours) Vital Signs Temp Pulse Resp BP Pulse Ox O2 Del Method 04/02/23 07:11 36.8 C 69 18 113/65 98 Room Air Laboratory Results CBC and chemistry reviewed PG Care Time/CCT Total # of Minutes Spent Total Time Spent with Patient: Total time spent is greater than 50% in coordination of care (as documented) at patient's floor/unit and/or counseling patient: Coding Level of Care Code 91884 SUB INP/OBS CARE 2/35MIN Diagnoses Acute cholecystitis K81.0 Choledocholithiasis K80.50 Anemia D64.9 Positive urine culture R82.79 CHF (congestive heart failure) I50.9 Invasive ductal carcinoma of breast C50.919 Stented coronary artery Z95.5 Hypercholesterolemia E78.00 Anxiety F41.9
[2023-04-02] MEDS: cefTRIAXone SODIUM 1,000 MG in DEXTROSE 5 % MINI-B 50 ML IV SCH (16:45)
[2023-04-02] MEDS: ASPIRIN 81 MG ECTAB PO SCH (20:38)
[2023-04-02] MEDS: ATORVASTATIN 20 MG TAB PO SCH (20:38)
[2023-04-02] MEDS: ESCITALOPRAM OXALATE 10 MG TAB PO SCH (20:39)
--- NOTE | 2023-04-03 07:38 | Surgery Progress Note ---
Date of Service April 03, 2023 Assessment & Plan (1) Acute cholecystitis: (2) Choledocholithiasis: Plan POD #4 s/p ERCP/laparoscopic cholecystectomy Doing very well Advance diet to heart healthy Encourage ambulation and incentive spirometry DVT prophylaxis with SCD boots, Lovenox will sign off; please call with questions or concerns Admission and Anticipated Discharge Date Admission Date: March 30, 2023 Subjective doing well; minimal pain; tolerating diet with no nausea; drain removed yesterday Physical Exam Physical Exam: NAD, A&O x 3 AFVSS Abdomen: Soft, mild TTP nondistended Results & Data Vital Signs (Past 12 Hours) Vital Signs Temp Pulse Resp BP Pulse Ox O2 Del Method 04/02/23 20:30 Room Air 04/02/23 19:48 36.8 C 91 H 16 133/77 97 Room Air
[2023-04-03] MEDS: VALSARTAN/SACUBITRIL 51/49 MG TAB PO SCH ×2 (09:16→20:20)
[2023-04-03] MEDS: ACETAMINOPHEN 500 MG TAB PO SCH ×3 (09:17→20:20)
[2023-04-03] MEDS: VERZENIO PO SCH (09:17)
[2023-04-03] MEDS: CHOLECALCIFEROL 25 MCG (1000 UNITS) TAB PO SCH (09:17)
[2023-04-03] MEDS: ENOXAPARIN INJ 30 MG/0.3 ML SYR SQ SCH (09:21)
[2023-04-03] MEDS: ONDANSETRON INJ 2 MG/ML 2 ML VIAL IV PRN (10:03)
--- NOTE | 2023-04-03 10:30 | Hospitalist Progress Note ---
Date of Service April 03, 2023 Assessment & Plan (1) Acute cholecystitis: Plan: -CTAP: Shows signs consistent with acute cholecystitis -S/p ERCP (Dr. Dillard) and laparoscopic cholecystectomy (Dr. Bragg) 03/30 - Avoid NSAIDs for 1 week (until 04/06) - ERCP for stent removal in 8 to 12 weeks -General Surgery Consulted - heart healthy diet - ROSA drained removed 04/02 - DVT proh: Lovenox and SCDs - Discussion with Dr. Del Rio 04/02 - pt does not need abx from a gallbladder prespective -Pain control with Tylenol and Dilaudid -LFTs WNL, anemia stable -Encourage IS -PT/OT as patient reports feeling weak - pending (2) Choledocholithiasis: Plan: see cholecystitis (3) Anemia: Plan: Chronic, Normocytic -Stable - Has been followed by heme/onc for this, had had bone marrow bx showing cancer mets -Will hold on transfusion at this time (4) Positive urine culture: Plan: Urine Culture: E.coli (and lactobacillus species) -Reports hx of UTIs, though no obvious symptoms c/w UTI. Denies dysuria but has been having abdominal pain (though likely from cholecystitis) -Will continue ceftriaxone 1g daily (first day 03/30) (5) CHF (congestive heart failure): Plan: -LVEF of 35% as of 06/2021 -Appears euvolemic on exam -Resumed home Entresto 03/31 -Holding home PRN lasix and metoprolol (6) Invasive ductal carcinoma of breast: Plan: -Spoke with Dr. Barragan, plan to hold Verzenio while inpatient (7) Stented coronary artery: Plan: -Resumed Aspirin 03/31 (8) Hypercholesterolemia: Plan: -Resumed home statin 03/31 (9) Anxiety: Plan: -Resumed home escitalopram and as needed lorazepam 03/31 Plan Dispo: continued inpatient stay, pending PT/OT evals DVT proh: Lovenox and SCDs Admission and Anticipated Discharge Date Admission Date: March 30, 2023 Subjective Patient sitting up in bed, states she is feeling worse today. Took her chemo medication and that can often cause her to have weird dreams, so she did not sleep well. Then woke up with a cough that caused her to dry heave and having pain near her surgical site. Continuing to have to use walker for ambulation. Did not see therapy this morning due to pain, but will try again this afternoon. Did move her bowels yesterday. Was appreciative of inspector material disposition visit yesterday. Review of Systems Review of Systems: All systems reviewed & are unremarkable except as noted in Subjective Physical Exam Physical Exam: General: resting in bed, tearful, VS as above Resp: normal respiratory effort, decreased in bases CV: RRR, no murmur, Abd: normal bowel sounds, mild generalized tenderness, no hepatosplenomegaly. Bruising around umbilical port site, dressing c/d/i Extremities: Moves all extremities, no edema, SCDs in place Neuro: A&O x3, Results & Data Results & Data Vital Signs (Past 12 Hours) Vital Signs Temp Pulse Resp BP Pulse Ox O2 Del Method 04/03/23 07:47 36.5 C 63 16 123/68 98 Room Air PG Care Time/CCT Total # of Minutes Spent Total Time Spent with Patient: Total time spent is greater than 50% in coordination of care (as documented) at patient's floor/unit and/or counseling patient: Coding Level of Care Code 76932 SUB INP/OBS CARE 2/35MIN Diagnoses Acute cholecystitis K81.0 Choledocholithiasis K80.50 Anemia D64.9 Positive urine culture R82.79 CHF (congestive heart failure) I50.9 Invasive ductal carcinoma of breast C50.919 Stented coronary artery Z95.5 Hypercholesterolemia E78.00 Anxiety F41.9
[2023-04-03] MEDS: cefTRIAXone SODIUM 1,000 MG in DEXTROSE 5 % MINI-B 50 ML IV SCH (16:13)
[2023-04-03] MEDS: oxyCODONE HCL IR 5 MG TAB (IMMEDIATE RELEASE) PO PRN (20:19)
[2023-04-03] MEDS: ESCITALOPRAM OXALATE 10 MG TAB PO SCH (20:19)
[2023-04-03] MEDS: ASPIRIN 81 MG ECTAB PO SCH (20:20)
[2023-04-03] MEDS: ATORVASTATIN 20 MG TAB PO SCH (20:20)
[2023-04-04] MEDS: ACETAMINOPHEN 500 MG TAB PO SCH ×3 (07:45→20:03)
[2023-04-04] MEDS: CHOLECALCIFEROL 25 MCG (1000 UNITS) TAB PO SCH (07:45)
[2023-04-04] MEDS: VALSARTAN/SACUBITRIL 51/49 MG TAB PO SCH ×2 (07:45→20:02)
[2023-04-04] MEDS: ENOXAPARIN INJ 30 MG/0.3 ML SYR SQ SCH (07:46)
[2023-04-04] MEDS: oxyCODONE HCL IR 5 MG TAB (IMMEDIATE RELEASE) PO PRN (08:49)
[2023-04-04 11:02] LABS: Hematocrit (blood only) 21.7 % (37.0-47.0); Hemoglobin 6.7 g/dl (12.0-16.0); Mean Corpuscular Hemoglobin 29.8 pg (25.0-34.0); Mean Corpuscular Hgb Conc 30.9 g/dL (32.0-36.0); Mean Corpuscular Volume 96.4 fL (80.0-100.0); Mean Platelet Volume 9.1 fL (9.4-12.4); Platelet Count 171 K/uL (130-400); RDW Coefficient of Variation 19.2 % (11.5-14.5); RDW Standard Deviation 67.7 fL (36.4-46.3); Red Blood Count 2.25 M/uL (4.20-5.40); White Blood Count 3.95 K/ul (4.8-10.8)
[2023-04-04 11:11] LABS: Albumin Globulin Ratio 1.2 (0.9-2); Albumin Level 2.8 gm/dl (3.4-5.0); BUN Creatinine Ratio 15.5 (10-20); Bilirubin,Total 0.3 mg/dl (0.2-1.0); Calcium 8.5 mg/dl (8.6-10.3); Creatinine Clr Calc Pharmacy 24.6 ml/min; Est GFR (African American) 36.8 ml/min; Est GFR (Non-African American) 31.7 ml/min; Globulin 2.4 gm/dl (2.5-4.0); Total Protein 5.2 gm/dl (6.0-8.3)
[2023-04-04 11:29] LABS: Basophils # (auto) 0.04 K/uL (0.00-0.20); Eosinophils # (auto) 0.17 K/uL (0.00-0.50); Eosinophils % (auto) 4.3 %; Immature Granulocytes # (auto) 0.01 K/uL (0.01-0.20); Immature Granulocytes % (auto) 0.3 %; Lymphocytes # (auto) 1.03 K/uL (1.20-3.40); Lymphocytes % (auto) 26.1 %; Monocytes # (auto) 0.28 K/uL (0.11-0.59); Monocytes % (auto) 7.1 %; Neutrophils # (auto) 2.42 K/uL (1.40-6.50); Neutrophils % (auto) 61.2 %; RBC Morphology Unremarkable
[2023-04-04] MEDS ORDERED: SODIUM CHLORIDE 0.9% 250 ML IV PRN (11:55)
--- NOTE | 2023-04-04 12:11 | Hospitalist Progress Note ---
Date of Service April 04, 2023 Assessment & Plan (1) Acute cholecystitis: Plan: -CTAP: Shows signs consistent with acute cholecystitis -S/p ERCP (Dr. Dillard) and laparoscopic cholecystectomy (Dr. Bragg) 03/30 - Avoid NSAIDs for 1 week (until 04/06) - ERCP for stent removal in 8 to 12 weeks -General Surgery Consulted - heart healthy diet - ROSA drained removed 04/02 - DVT proh: Lovenox and SCDs - Discussion with Dr. Del Rio 04/02 - pt does not need abx from a gallbladder prespective -Pain control with Tylenol and oxycodone -Increasing pain 04/04 -LFTs WNL - Check KUB and CRP -Encourage IS -PT/OT as patient reports feeling weak - recommend home health and walker (script signed) (2) Choledocholithiasis: Plan: see cholecystitis (3) Anemia: Plan: Chronic, Normocytic - Has been followed by heme/onc for this, had had bone marrow bx showing cancer mets. Has had 2 tranfusions in the last 3 months, last 03/02. -Hgb today 6.7 -- transfuse 1unit PRBCs (4) Positive urine culture: Plan: Urine Culture: E.coli (and lactobacillus species) -Reports hx of UTIs, though no obvious symptoms c/w UTI. Denies dysuria but has been having abdominal pain (though likely from cholecystitis) -Will continue ceftriaxone 1g daily (first day 03/30) (5) CHF (congestive heart failure): Plan: -LVEF of 35% as of 06/2021 -Appears euvolemic on exam -Resumed home Entresto 03/31 -Holding home PRN lasix and metoprolol. monitor volume status may need dose of lasix tomorrow after transufsion (6) Invasive ductal carcinoma of breast: Plan: -Spoke with Dr. Barragan, plan to hold Verzenio while inpatient (7) Stented coronary artery: Plan: -Resumed Aspirin 03/31 (8) Hypercholesterolemia: Plan: -Resumed home statin 03/31 (9) Anxiety: Plan: -Resumed home escitalopram and as needed lorazepam 03/31 Plan Dispo: continued inpatient stay DVT proh: Lovenox Daughter updated by phone. Admission and Anticipated Discharge Date Admission Date: March 30, 2023 Subjective Patient seen this morning, complaining of RUQ abdominal pain since she woke up. just took pain medication, has not felt the effects yet. Worried why she continues to have this pain - I reassured her she has a stent for her surgery. Revisited later in the morning, pain is more controlled, but she is worried about having pain going home. Discussed lab results, agreeable to blood transf usion. consent signed. Review of Systems Review of Systems: All systems reviewed & are unremarkable except as noted in Subjective Physical Exam Physical Exam: General: resting in bed, clearly in pain, VS as above Resp: normal respiratory effort, decreased in bases CV: RRR, no murmur, Abd: normal bowel sounds, RUQ pain with palpation, no hepatosplenomegaly. Bruising around umbilical port site, dressing c/d/i Extremities: Moves all extremities, no edema Neuro: A&O x3, Results & Data Results & Data Vital Signs (Past 12 Hours) Vital Signs Temp Pulse Resp BP Pulse Ox O2 Del Method 04/04/23 07:49 36.4 C L 73 16 116/60 98 Room Air Laboratory Results CBC and chemistry reviewed PG Care Time/CCT Total # of Minutes Spent Total Time Spent with Patient: Total time spent is greater than 50% in coordination of care (as documented) at patient's floor/unit and/or counseling patient: Coding Level of Care Code 01199 SUB INP/OBS CARE 3/50MIN Diagnoses Acute cholecystitis K81.0 Choledocholithiasis K80.50 Anemia D64.9 Positive urine culture R82.79 CHF (congestive heart failure) I50.9 Invasive ductal carcinoma of breast C50.919 Stented coronary artery Z95.5 Hypercholesterolemia E78.00 Anxiety F41.9
[2023-04-04 13:23] LABS: C Reactive Protein 2.94 mg/dl (0-0.5)
[2023-04-04] MEDS ORDERED: POLYETHYLENE (MIRALAX) 17 GM PACK PO PRN (14:27)
[2023-04-04] MEDS ORDERED: DOCUSATE SODIUM/SENNA 50/8.6MG TAB PO PRN (16:09)
--- NOTE | 2023-04-04 16:16 | XRay Report ---
KUB CLINICAL HISTORY: Generalized abdominal pain. FINDINGS: 2 AP, portable, supine abdominal radiographs are correlated with abdominal CT dated 03/30/19 24. There is a nonobstructed abdominal bowel gas pattern. No evidence of intraperitoneal free air is seen on these supine images. Cholecystectomy clips are noted. Common bile duct stents are in place. P neumobilia suggests patency of the stents. There are no abnormal abdominal calcifications. 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 IMPRESSION: 1. Common bile duct stents are in place as above. Pneumobilia suggests patency of the stents. 2. No bowel obstruction. 3. 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 Electronically signed by: Caio Ham M.D. 04/04/2023 4:15 PM
[2023-04-04] MEDS: cefTRIAXone SODIUM 1,000 MG in DEXTROSE 5 % MINI-B 50 ML IV SCH (17:43)
[2023-04-04] MEDS ORDERED: DOCUSATE SODIUM/SENNA 50/8.6MG TAB PO SCH (19:00)
[2023-04-04] MEDS: ASPIRIN 81 MG ECTAB PO SCH (20:02)
[2023-04-04] MEDS: ESCITALOPRAM OXALATE 10 MG TAB PO SCH (20:03)
[2023-04-04] MEDS: ATORVASTATIN 20 MG TAB PO SCH (20:04)
[2023-04-05 06:41] LABS: Hematocrit (blood only) 25.3 % (37.0-47.0); Hemoglobin 8.3 g/dl (12.0-16.0); Mean Corpuscular Hemoglobin 30.1 pg (25.0-34.0); Mean Corpuscular Hgb Conc 32.8 g/dL (32.0-36.0); Mean Corpuscular Volume 91.7 fL (80.0-100.0); Platelet Count 163 K/uL (130-400); RDW Coefficient of Variation 19.6 % (11.5-14.5); RDW Standard Deviation 65.2 fL (36.4-46.3); Red Blood Count 2.76 M/uL (4.20-5.40); White Blood Count 4.55 K/ul (4.8-10.8)
[2023-04-05] MEDS: ENOXAPARIN INJ 30 MG/0.3 ML SYR SQ SCH (07:26)
[2023-04-05] MEDS: ACETAMINOPHEN 500 MG TAB PO SCH ×2 (07:26→13:23)
[2023-04-05] MEDS: VALSARTAN/SACUBITRIL 51/49 MG TAB PO SCH (07:26)
[2023-04-05] MEDS: CHOLECALCIFEROL 25 MCG (1000 UNITS) TAB PO SCH (07:26)
--- NOTE | 2023-04-05 13:06 | Discharge Summary ---
Discharge Summary Date of Service April 05, 2023 Notes For Next Care Provider continue follow-up with Dr. Barragan for anemia, also discussed with her when to resume your Verzenio Stent in place after cholecystectomy, will be need to be removed with general surgery in 8 to 12 weeks. Metoprolol on hold during admission and blood pressure stable, held at discharge Medication Changes From Visit metoprolol on holddiscuss with PCP Beauio on holddiscussed with Dr. Barragan Admission HPI Per Admitting Provider Wanda is an 88 year old female with a PMH significant with Ischemic Cardiomyopathy (LVEF of 35%, breast cancer (currently on hormone therapy), CAD, CKD, hyperlipidemia, who presented to the [facility] ED on 03/30/23 via EMS with complaints of RUQ pain, back pain, and nausea. She remained stable in the ED. Labs including CBC, CMP, and high sen trop were WNL. CT of the abd/pelvis w/con was read as 1. Interval development of significant gallbladder distention with mild pericholecystic stranding. Cholelithiasis. The findings suggest acute cholecystitis. 2. No significant change in biliary ductal dilatation with redemonstration of multiple common bile duct calculi. 3. No pneumoperitoneum. No bowel obstruction. No bowel wall thickening. Redemonstration of the intraluminal lesions within the cecum and ileum. 4. No change in skeletal metastases..The ED spoke with General Surgery who will plan on performing a cholecystectomy. THe ED staff spoke with GI as well to have them on board in case ERCP would be required. Prior to admission the patient was given a dose of Cefoxitin, 500 mL NSS, 0.5 mg IV dilaudid, and 4 mg IV zofran. At the time of the exam the patient was lying in bed in no acute distress. She states that she started to develop nausea, RUQ pain with radiation into the right back, and dry heaves around 2100 last night. Her symptoms continued overnight prompting ED evaluation. Her symptoms are currently under control after receiving IV dilaudid and zofran in the ED. She denies recent fever, chills, SOB, hematemesis, dysuria, hematuria, melena, LE swelling, and recent trauma. She last ate at approximately 1800 last night. She did take her am dose of Entresto prior to arrival. She is a full code and would want her daughter, Dianna Hyatt, to make medical decisions for her if she cannot make them herself. Please refer to Dr. Concepcion's attestation for any changes to the treatment plan Principal Dx & Hospital Course #1 = Principal Diagnosis (1) Acute cholecystitis: -CTAP: Shows signs consistent with acute cholecystitis -S/p ERCP (Dr. Dillard) and laparoscopic cholecystectomy (Dr. Bragg) 03/30 - ERCP for stent removal in 8 to 12 weeks -General Surgery Consulted - ROSA drained removed 04/02 - Discussion with Dr. Del Rio 04/02 - pt does not need abx from a gallbladder prespective -Pain control with Tylenol -Increasing pain 04/04: LFTs WNL, KUB without acute process. CRP down trending -Encourage IS -PT/OT as patient reports feeling weak - discharge home with home health and walker (script signed) (2) Choledocholithiasis: see cholecystitis (3) Anemia: Chronic, Normocytic - Has been followed by heme/onc for this, had had bone marrow bx showing cancer mets. Has had 2 tranfusions in the last 3 months, last 03/02. -Hgb 04/04 6.7 -- received 1unit PRBCs Hgb improved to 8.3, continue monitoring with Dr. Barragan (4) Positive urine culture: Urine Culture: E.coli (and lactobacillus species) Receieved 7 day course of Ceftriaxone while inpatient (5) CHF (congestive heart failure): -LVEF of 35% as of 06/2021 -Appears euvolemic on exam -Resumed home Entresto 03/31 -Holding home PRN lasix and metoprolol - continue to hold at discharge (6) Invasive ductal carcinoma of breast: -Spoke with Dr. Barragan, plan to hold Verzenio while inpatient (7) Stented coronary artery: -Continue home Aspirin (8) Hypercholesterolemia: -Continue home statin (9) Anxiety: -Continue home escitalopram and as needed lorazepam Plan discharge to home with home health and walker Patient daughter updated by phone Discharge Exam General: resting in bed, clearly in pain, VS as above Resp: normal respiratory effort, clear to accusation CV: RRR, no murmur, Abd: normal bowel sounds, nonthender, no hepatosplenomegaly. Bruising around umbilical port site, dressing c/d/i Extremities: Moves all extremities, no edema Neuro: A&O x3, Updated Medication List Medication Instructions Recorded Confirmed Type aspirin 81 mg tablet,delayed 0 mg PO QPM 10/16/22 03/30/23 History release atorvastatin 20 mg tablet 20 mg PO QPM 10/16/22 03/30/23 History cholecalciferol (vitamin D3) 50 0 mcg PO QAM 10/16/22 03/30/23 History mcg (2,000 unit) capsule escitalopram oxalate 5 mg tablet 5 mg PO QPM 10/16/22 03/30/23 History furosemide 40 mg tablet 40 mg PO DAILY PRN Weight Gain 10/16/22 03/30/23 History mecobalamin (vitamin B12) 1,000 0 mcg PO DAILY 10/16/22 03/30/23 History mcg chewable tablet potassium chloride 10 mEq 10 meq PO DAILY PRN Weight Gain 10/16/22 03/30/23 History capsule,extended release lorazepam 1 mg tablet 1 mg PO UD PRN Anxiety 12/09/22 03/30/23 History abemaciclib 50 mg tablet (Verzenio) 0 mg PO BID 12/29/22 03/30/23 History peg 3350-electrolytes 236 240 ml PO Q10M #4,000 mL 03/09/23 03/30/23 Rx gram-22.74 gram-6.74 gram-5.86 gram solution (GaviLyte-G) metoprolol succinate 25 mg 25 mg PO QPM 03/13/23 03/30/23 History tablet,extended release 24 hr multivitamin 0 tab PO DAILY 03/13/23 03/30/23 History ondansetron 8 mg disintegrating 8 mg PO TID PRN Nausea And Vomiting 03/30/23 03/30/23 History tablet sacubitril 49 mg-valsartan 51 mg 1 tab PO BID 03/31/23 03/31/23 History tablet (Entresto) acetaminophen 500 mg tablet 1,000 mg (2 x 500 mg) PO TID 30 04/05/23 Rx (Tylenol Extra Strength) days #180 tabs Hospital Stay Data Consultations 03/30/23 10:05 Consult General Surgery Routine 03/30/23 10:21 Consult Gastroenterology Routine ED Decision to Admit Stat Procedures Performed Operation Date: 03/30/23 17:10 Actual Procedures s Endoscopic Retrograde Cholangiopancreatography(Not Applicable) - Rogelio Dillard, DO p Laparoscopic Cholecystectomy(Not Applicable) - Tex Del Rio MD Diagnostic Imagining Performed 03/30/23 08:43 CT abd pelvis IV con only Stat 03/30/23 11:19 [place] ERCP biliary ductal Routine Pending Results Patient Have Any Pending Studies at Discharge: No Discharge Instructions Given to Patient (Per Discharging Provider) Ms. Tariq, Jose were hospitalized after having significant abdominal pain that was caused by your gallbladder. This resulted in having your gallbladder taken out and having a stent placed. You will need to follow up with the surgeon to have the stent removed in 8 to 12 weeks. The stent may cause some abdominal discomfort but I suspect this will improve as you continue to be more active at home. You were also treated for a urinary tract infection - you completed the course of antibiotics while you were here and do not need any further antibiotics at discharge. Your hemoglobin dropped while you were, and you received 1 unit of blood and your hemoglobin improved. Continue to follow with Dr. Barragan regarding your anemia. Also discuss with Dr. Barragan when she was wants you to resume your cancer medications. We did not give you metoprolol while you were here and your blood pressures were okay. Continue to monitor your blood pressures at home and with your PCP and discuss if you need to restart this. Continue to weight yourself everyday. It was our pleasure taking care of you, Izzy Hollingsworth PA-C Total Time Total Time Spent Total Time Spent (In Minutes): Time spend day of discharge 40 minutes including direct patient care, medication reconciliation, documentation, review of labs and images, and coordination of care. Coding Level of Care Code 81102 INP/OBS DISCH >30 MIN Diagnoses Acute cholecystitis K81.0 Choledocholithiasis K80.50 Anemia D64.9 Positive urine culture R82.79 CHF (congestive heart failure) I50.9 Invasive ductal carcinoma of breast C50.919 Stented coronary artery Z95.5 Hypercholesterolemia E78.00 Anxiety F41.9
[2023-04-05] MEDS: cefTRIAXone SODIUM 1,000 MG in DEXTROSE 5 % MINI-B 50 ML IV SCH (14:53)
[2023-04-06] MEDS ORDERED: CHOLECALCIFEROL 25 MCG (1000 UNITS) TAB PO SCH (09:00)
== END 2023-04-05 18:09 | disposition home health service (06) | DRG 418 ==
LOC: ED 08:24 → EDINP 10:33 → SUATTDRO 10:33 → EDINP 14:03 → 3E 17:33

== ENCOUNTER 2023-06-01 13:27 | Inpatient (IN) ==
[2023-06-01] MEDS: ONDANSETRON INJ 2 MG/ML 2 ML VIAL IV STA (15:41)
[2023-06-01 15:53] LABS: Basophils # (auto) 0.06 K/uL (0.00-0.20); Eosinophils # (auto) 0.15 K/uL (0.00-0.50); Eosinophils % (auto) 2.6 %; Hematocrit (blood only) 28.6 % (37.0-47.0); Immature Granulocytes # (auto) 0.01 K/uL (0.01-0.20); Immature Granulocytes % (auto) 0.2 %; Lymphocytes # (auto) 1.83 K/uL (1.20-3.40); Lymphocytes % (auto) 31.8 %; Mean Corpuscular Hemoglobin 30.2 pg (25.0-34.0); Mean Corpuscular Hgb Conc 31.5 g/dL (32.0-36.0); Mean Platelet Volume 9.2 fL (9.4-12.4); Monocytes # (auto) 0.43 K/uL (0.11-0.59); Monocytes % (auto) 7.5 %; Neutrophils # (auto) 3.28 K/uL (1.40-6.50); Neutrophils % (auto) 56.9 %; Platelet Count 221 K/uL (130-400); RDW Coefficient of Variation 17.4 % (11.5-14.5); RDW Standard Deviation 61.1 fL (36.4-46.3); Red Blood Count 2.98 M/uL (4.20-5.40); White Blood Count 5.76 K/ul (4.8-10.8)
[2023-06-01 15:54] LABS: Appearance Urine Cloudy (Clear); Bacteria Urine Automated 4+ (Negative); Bilirubin Urine Negative (Negative); Blood Urine Negative (Negative); Color Urine Yellow; Epithelial Cell Urine Auto 20-30 /lpf (0-5); Glucose Urine UA Negative (Negative); Ketones Urine Negative (Negative); Leukocyte Esterase Urine 2+ (Negative); Nitrite Urine Negative (Negative); Protein Urine Trace (Negative); RBC Urine Automated 0-4 /hpf (0-4); Specific Gravity Urine 1.013 (1.000-1.030); Urobilinogen Urine Negative (Negative); WBC Urine Automated >30 /hpf (0-5)
[2023-06-01 16:00] LABS: Albumin Level 3.5 gm/dl (3.4-5.0); BUN Creatinine Ratio 22.7 (10-20); Bilirubin,Total 0.5 mg/dl (0.2-1.0); Calcium 9.7 mg/dl (8.6-10.3); Creatinine Clr Calc Pharmacy 10.4 ml/min; Est GFR (African American) 15.2 ml/min; Est GFR (Non-African American) 13.1 ml/min; Globulin 3.4 gm/dl (2.5-4.0); Potassium 5.5 mmol/L (3.5-5.1); Total Protein 6.9 gm/dl (6.0-8.3)
--- NOTE | 2023-06-01 16:46 | Emergency Department Note ---
Impression & Plan JERRELL (acute kidney injury) ADMIT ED Provider Note HPI: History obtained from patient. The patient is a 88-year-old female with history of cardiomyopathy, coronary artery disease, GERD, history of breast cancer currently on oral chemotherapy, who presents emergency department with chief complaint of nausea and vomiting and intermittent right-sided abdominal pain. Patient is noted to be status post cholecystectomy and stent placement for choledocholithiasis by the general surgery and GI services here at [facility] in late August 2023. Patient states that she is scheduled to have her stent removed in about 2 weeks. Patient states that over the past several days she has had some worsening intermittent right-sided abdominal discomfort as well as multiple "dry heaves" with nausea. ROS: - Per HPI Differential Diagnosis: Biliary ductal obstruction/stent malfunction, small bowel obstruction, viral gastroenteritis, acute pancreatitis, metastatic disease with abdominal pain, amongst other potential pathologies. *Outpatient medications and allergy history reviewed. PE: General: Alert, frail-appearing HEENT: Normocephalic, trachea midline Eyes: Extraocular eye movement is intact, no scleral erythema Pulmonary: Clear to auscultation bilaterally, no wheezing Cardio: Regular rate and rhythm GI: Abdomen is soft to palpation, there is moderate tenderness to the right side of the abdomen without guarding or rigidity : No suprapubic tenderness MSK: No evidence of trauma or malformation of the extremities, no edema Skin: No evidence of rash Neuro: Alert, no focal deficits Psychiatric: Cooperative INDEPENDENT INTERPRETATIONS: lunchroom monitor: (As interpreted by myself): - An order was placed for continuous cardiac monitoring - Patient was noted to be in sinus rhythm with a rate of 90 EKG: (As interpreted by myself): Rate: 80 Rhythm: Sinus rhythm Intervals: [place] interval 216 ms, otherwise within normal limits ST changes: No ST elevation Time: 1756 Interventions provided in ED: -IV fluid bolus Medical Decision Making: IV was established and lab work obtained, patient was placed on playground monitor. Lab work shows no leukocytosis, hemoglobin is stable at 9.0 which is near the patient's baseline. Platelet count is normal. CMP does show evidence of creatinine elevation at 3.08 with most recent baseline around 1.6. Potassium is mildly elevated at 5.5. EKG does not show any evidence of arrhythmia or peaked T waves. Patient was given IV fluids here in the ED. CT imaging of the abdomen pelvis was obtained that shows no critical findings, there is mention of some mild stranding around the head of the pancreas however biliary stents appear to be in place. Lipase is normal, low suspicion for acute pancreatitis. There is mild transaminitis that appears stable/near baseline. On my reassessment the patient remains resting comfortably in bed, given her acute kidney injury with recent episodes of nausea and vomiting I do feel that she is appropriate for admission. Case was discussed with the on-call hospitalist, Dr. Rojo, and the patient was placed for admission in stable condition. Consultants/Discussions held with other healthcare providers: -Hospitalist, Dr. Rojo Disposition discussion held by myself with: -Patient Diagnosis: 1. Acute on chronic kidney injury 2. Transaminitis, mild, stable 3. Nausea and vomiting, acute 4. Hyperkalemia, acute 5. Anemia, chronic, stable Disposition: Admission Ethan Schafer DO Emergency Medicine Past Med/Surg History Medical History (Updated 06/01/23 @ 21:43 by Ethan Schafer DO) Anemia Choledocholithiasis Acute cholecystitis Hypercholesterolemia CHF (congestive heart failure) Anxiety Urinary urgency 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 Jhaveri>rt breast (no surgery) Skin, right breast mass, incisional biopsy: - Invasive ductal carcinoma - Histologic grade: Low - Tubules: 3/3 - Nuclei: 1/3 - Mitoses: 1/3 - In situ component: Present H/O wrist surgery right Family History Aunt Breast cancer Father Heart disease Brother Heart disease Colorectal cancer Mother Clotting disorder Other No family history of adverse response to anesthesia Social History Smoking Status: Never smoker Second Hand Exposure: No; Do You Dip or Chew Tobacco: No; Hx Alcohol Use: No Hx Substance Use: No Preferred Language: Portuguese Communication Ability: Effective Store Clerk Cashier Required: No Beliefs That Will Affect Care: Druze Druze Beliefs: Gnosticist marital status: / Current Living Situation: Alone current occupational status: retired How many Children do You have: 1 Feels Safe at Home: Yes during the past year weight has: remained stable Assistive Devices: Walker Allergies Allergies Allergy/AdvReac Type Severity Reaction Status Date / Time prochlorperazine Allergy Unknown PT'S Verified 06/01/23 17:27 [From Compazine] MOTHER HAD ANAPHYLATIC REACTION, TOLD NOT TO TAKE. ciprofloxacin [From Cipro] AdvReac Mild Nausea Verified 06/01/23 17:27 sulfamethoxazole AdvReac Mild Nausea Verified 06/01/23 17:27 [From Bactrim] trimethoprim [From Bactrim] AdvReac Mild Nausea Verified 06/01/23 17:27 Home Meds Home Medications Medication Instructions Recorded Confirmed aspirin 81 mg tablet,delayed 81 mg PO QPM 10/16/22 06/01/23 release atorvastatin 20 mg tablet 20 mg PO QPM 10/16/22 06/01/23 escitalopram oxalate 5 mg tablet 5 mg PO QPM 10/16/22 06/01/23 mecobalamin (vitamin B12) 1,000 1,000 mcg PO DAILY 10/16/22 06/01/23 mcg chewable tablet potassium chloride 10 mEq 10 meq PO DAILY PRN PT DOESN'T 10/16/22 06/01/23 capsule,extended release TAKE LASIX ANYMORE lorazepam 1 mg tablet 1 mg PO HS PRN Anxiety 12/09/22 06/01/23 abemaciclib 50 mg tablet (Verzenio) 50 mg PO AMHS 12/29/22 06/01/23 metoprolol succinate 25 mg 25 mg PO . ON HOLD AT PRESENT 03/13/23 06/01/23 tablet,extended release 24 hr ondansetron 8 mg disintegrating 8 mg PO TID PRN Nausea And Vomiting 03/30/23 06/01/23 tablet sacubitril 49 mg-valsartan 51 mg 1 tab PO BID 03/31/23 06/01/23 tablet (Entresto) acetaminophen 500 mg tablet 1,000 mg PO AMHS PRN Pain 04/23/23 06/01/23 (Tylenol Extra Strength) tramadol 50 mg tablet 50 mg PO Q6H PRN Pain 05/04/23 06/01/23 calcium carbonate 200 mg calcium 200 - 400 mg PO DIRECTED PRN 06/01/23 06/01/23 (500 mg) chewable tablet (Tums) HEARTBURN/INDIGESTION food supplemt, lactose-reduced 1 ea PO DAILY 06/01/23 06/01/23 protein 1 ea PO DAILY 06/01/23 06/01/23 simethicone 80 mg chewable tablet 80 mg PO DIRECTED PRN GAS 06/01/23 06/01/23 DISCOMFORT Results & Data (ED) Vital Signs Vital Signs - 24 hr 06/01/23 13:12 06/01/23 14:59 06/01/23 15:00 Temperature 36.5 C Temperature Source Oral Pulse Rate 85 74 78 Pulse Rate from SpO2 Sensor Respiratory Rate 18 22 22 Respiratory Effort / Characteristics Non-Labored Respiratory Depth Normal Respiratory Pattern Regular Blood Pressure 107/67 Blood Pressure Mean 80 Blood Pressure Position Lying Pulse Oximetry 99 Oxygen Delivery Method Room Air Sepsis Recent Fever Within 48 Hours No Sepsis New/Unexplained Change in Mental Status No Sepsis Action Taken by Nursing No Action Required 06/01/23 15:10 06/01/23 15:20 06/01/23 15:30 Temperature Temperature Source Pulse Rate 80 75 75 Pulse Rate from SpO2 Sensor Respiratory Rate 18 22 19 Respiratory Effort / Characteristics Respiratory Depth Respiratory Pattern Blood Pressure Blood Pressure Mean Blood Pressure Position Pulse Oximetry Oxygen Delivery Method Sepsis Recent Fever Within 48 Hours Sepsis New/Unexplained Change in Mental Status Sepsis Action Taken by Nursing 06/01/23 15:34 06/01/23 15:40 06/01/23 15:50 Temperature Temperature Source Pulse Rate 87 88 88 Pulse Rate from SpO2 Sensor 90 Respiratory Rate 18 24 24 Respiratory Effort / Characteristics Respiratory Depth Respiratory Pattern Blood Pressure 138/75 Blood Pressure Mean 96 Blood Pressure Position Pulse Oximetry 97 Oxygen Delivery Method Sepsis Recent Fever Within 48 Hours Sepsis New/Unexplained Change in Mental Status Sepsis Action Taken by Nursing 06/01/23 16:00 06/01/23 16:10 06/01/23 16:12 Temperature Temperature Source Pulse Rate 81 79 85 Pulse Rate from SpO2 Sensor 80 80 Respiratory Rate 20 20 Respiratory Effort / Characteristics Respiratory Depth Respiratory Pattern Blood Pressure 103/53 L Blood Pressure Mean 69 Blood Pressure Position Pulse Oximetry 98 97 Oxygen Delivery Method Sepsis Recent Fever Within 48 Hours Sepsis New/Unexplained Change in Mental Status Sepsis Action Taken by Nursing 06/01/23 16:20 06/01/23 16:30 06/01/23 16:40 Temperature Temperature Source Pulse Rate 85 78 88 Pulse Rate from SpO2 Sensor 84 79 91 H Respiratory Rate 22 19 22 Respiratory Effort / Characteristics Respiratory Depth Respiratory Pattern Blood Pressure 93/51 L Blood Pressure Mean 65 Blood Pressure Position Pulse Oximetry 99 97 94 Oxygen Delivery Method Sepsis Recent Fever Within 48 Hours Sepsis New/Unexplained Change in Mental Status Sepsis Action Taken by Nursing 06/01/23 17:09 06/01/23 17:10 06/01/23 17:20 Temperature Temperature Source Pulse Rate Pulse Rate from SpO2 Sensor 79 75 77 Respiratory Rate Respiratory Effort / Characteristics Respiratory Depth Respiratory Pattern Blood Pressure Blood Pressure Mean Blood Pressure Position Pulse Oximetry 98 98 98 Oxygen Delivery Method Sepsis Recent Fever Within 48 Hours Sepsis New/Unexplained Change in Mental Status Sepsis Action Taken by Nursing 06/01/23 17:30 06/01/23 17:39 06/01/23 17:40 Temperature Temperature Source Pulse Rate 90 90 Pulse Rate from SpO2 Sensor 74 Respiratory Rate 15 24 Respiratory Effort / Characteristics Respiratory Depth Respiratory Pattern Blood Pressure 124/60 Blood Pressure Mean 81 Blood Pressure Position Pulse Oximetry 98 Oxygen Delivery Method Sepsis Recent Fever Within 48 Hours Sepsis New/Unexplained Change in Mental Status Sepsis Action Taken by Nursing 06/01/23 17:50 06/01/23 18:00 06/01/23 18:01 Temperature Temperature Source Pulse Rate 84 83 87 Pulse Rate from SpO2 Sensor 84 85 86 Respiratory Rate 19 18 22 Respiratory Effort / Characteristics Respiratory Depth Respiratory Pattern Blood Pressure 95/56 L Blood Pressure Mean 69 Blood Pressure Position Pulse Oximetry 98 99 100 Oxygen Delivery Method Sepsis Recent Fever Within 48 Hours Sepsis New/Unexplained Change in Mental Status Sepsis Action Taken by Nursing 06/01/23 18:10 06/01/23 18:20 06/01/23 18:30 Temperature Temperature Source Pulse Rate 83 83 83 Pulse Rate from SpO2 Sensor 83 81 84 Respiratory Rate 23 18 16 Respiratory Effort / Characteristics Respiratory Depth Respiratory Pattern Blood Pressure 129/88 Blood Pressure Mean 101 Blood Pressure Position Pulse Oximetry 99 99 100 Oxygen Delivery Method Sepsis Recent Fever Within 48 Hours Sepsis New/Unexplained Change in Mental Status Sepsis Action Taken by Nursing 06/01/23 18:40 Temperature Temperature Source Pulse Rate 83 Pulse Rate from SpO2 Sensor 82 Respiratory Rate 24 Respiratory Effort / Characteristics Respiratory Depth Respiratory Pattern Blood Pressure Blood Pressure Mean Blood Pressure Position Pulse Oximetry 98 Oxygen Delivery Method Sepsis Recent Fever Within 48 Hours Sepsis New/Unexplained Change in Mental Status Sepsis Action Taken by Nursing Laboratory Data 06/01/23 19:04 06/01/23 19:04 Lab Results 06/01/23 06/01/23 06/01/23 Range/Units 14:11 15:38 18:50 WBC 5.76 (4.8-10.8) K/ul RBC 2.98 L (4.20-5.40) M/uL Hgb 9.0 L (12.0-16.0) g/dl Hct 28.6 L (37.0-47.0) % MCV 96.0 (80.0-100.0) fL MCH 30.2 (25.0-34.0) pg MCHC 31.5 L (32.0-36.0) g/dL RDW Std Deviation 61.1 H (36.4-46.3) fL RDW Coeff of Kirill 17.4 H (11.5-14.5) % Plt Count 221 (130-400) K/uL MPV 9.2 L (9.4-12.4) fL Immature Gran % (Auto) 0.2 % Neut % (Auto) 56.9 % Lymph % (Auto) 31.8 % [place] % (Auto) 7.5 % Eos % (Auto) 2.6 % Baso % (Auto) 1.0 % Neut # (Auto) 3.28 (1.40-6.50) K/uL Lymph # (Auto) 1.83 (1.20-3.40) K/uL [place] # (Auto) 0.43 (0.11-0.59) K/uL Eos # (Auto) 0.15 (0.00-0.50) K/uL Baso # (Auto) 0.06 (0.00-0.20) K/uL Immature Gran # (Auto) 0.01 (0.01-0.20) K/uL Sodium 133 L (136-145) mmol/L Potassium 5.5 H (3.5-5.1) mmol/L Chloride 107 (98-107) mmol/L Carbon Dioxide 17 L (21-32) mmol/L Anion Gap 9 (3-11) BUN 70 H (6-23) mg/dl Creatinine 3.08 H (0.6-1.2) mg/dl Est Cr Clr Drug Dosing 10.4 ml/min Est GFR ( Amer) 15.2 ml/min Est GFR (Non-Af Amer) 13.1 ml/min BUN/Creatinine Ratio 22.7 H (10-20) Glucose 93 (70-99(Fasting)) mg/dl Lactate 0.6 (0.4-2.0) mmol/L Calcium 9.7 (8.6-10.3) mg/dl Total Bilirubin 0.5 (0.2-1.0) mg/dl AST 81 H (13-39) U/L ALT 108 H (7-52) U/L Alkaline Phosphatase 203 H (34-104) U/L Total Protein 6.9 (6.0-8.3) gm/dl Albumin 3.5 (3.4-5.0) gm/dl Globulin 3.4 (2.5-4.0) gm/dl Albumin/Globulin Ratio 1.0 (0.9-2) Lipase 78 (11-82) U/L Urine Color Yellow Urine Appearance Cloudy A (Clear) Urine pH 5.0 (4.5-7.5) Ur Specific [place] 1.013 (1.000-1.030) Urine Protein Trace H (Negative) Urine Glucose (UA) Negative (Negative) Urine Ketones Negative (Negative) Urine Blood Negative (Negative) Urine Nitrite Negative (Negative) Urine Bilirubin Negative (Negative) Urine Urobilinogen Negative (Negative) Ur Leukocyte Esterase 2+ H (Negative) Urine WBC (Auto) >30 H (0-5) /hpf Urine RBC (Auto) 0-4 (0-4) /hpf U Hyaline Cast (Auto) 1-5 (0-5) /lpf U Epithel Cells (Auto) 20-30 H (0-5) /lpf Urine Bacteria (Auto) 4+ H (Negative) Administered Medications Ampicillin Sodium/Sulbactam Sodium 3,000 mg/ Sodium Chloride 100 mls @ 100 mls/hr IV Q24H MANUEL Stop: 06/11/23 18:59 Last Infusion: 06/01/23 20:35 Dose: Infused Documented By: Admin: 06/01/23 19:15 Dose: 100 mls/hr Documented By: HARDY Magnesium Sulfate/Dextrose (Magnesium Sulfate / D5w) 1 gm in 100 mls @ 50 mls/hr IV Q2H MANUEL Stop: 06/01/23 23:44 Last Admin: 06/01/23 20:02 Dose: 50 mls/hr Documented By: HARDY Discontinued Medications Dextrose (Dextrose 50% 50 Ml Syringe) 50 ml IV NOW STA Stop: 06/01/23 19:44 Last Admin: 06/01/23 20:02 Dose: 50 ml Documented By: HARDY Sodium Chloride (Nss) 1,000 mls @ 999 mls/hr IV .Q1H1M ONE Stop: 06/01/23 17:34 Last Infusion: 06/01/23 18:00 Dose: Infused Documented By: Admin: 06/01/23 16:56 Dose: 999 mls/hr Documented By: HARDY Lactated Ringer's (Lr) 500 mls @ 999 mls/hr IV .Q31M ONE Stop: 06/01/23 18:40 Last Infusion: 06/01/23 20:35 Dose: Infused Documented By: Admin: 06/01/23 18:49 Dose: 999 mls/hr Documented By: HARDY Calcium Gluconate 1,000 mg/ (Sodium Chloride) 60 mls @ 240 mls/hr IV NOW ONE Stop: 06/01/23 19:57 Last Admin: 06/01/23 20:29 Dose: 240 mls/hr Documented By: LIU Insulin Human Regular (Novolin-R Insulin Per Unit Charge) 5 units IV ONE ONE Stop: 06/01/23 20:01 Last Admin: 06/01/23 20:02 Dose: 5 units Documented By: HARDY Co-signed By: LIU Ondansetron HCl (Ondansetron Inj 2 Mg/Ml 2 Ml Vial) 4 mg IV NOW STA Stop: 06/01/23 15:39 Last Admin: 06/01/23 15:41 Dose: 4 mg Documented By: HARDY Imaging Data Radiologist's Impression: Abdomen/Pelvis CT 06/01/23 16:[address] WITHOUT CONTRAST CT DOSE: 811.05 mGy.cm HISTORY: N/V, R sided abd pain, hx of biliary stents TECHNIQUE: Multiaxial CT images of the abdomen and pelvis were performed without contrast. A dose lowering technique was utilized adhering to the principles of ALARA. COMPARISON STUDY: Abdomen and pelvis CT 05/17/2023. FINDINGS: The lung bases are clear. No pneumoperitoneum. No pneumatosis. 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 No acute fractures. There is a moderate hiatus hernia, unchanged. A 1.7 cm right breast mass again noted. Prior cholecystectomy. Pneumobilia again noted. The metallic common bile duct stent appears patent. The main pancreatic duct stent appears in good position. 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 There may be minimal inflammatory change at the pancreatic head. This could represent a mild acute pancreatitis. No peripancreatic fluid collections identified. Calcified plaque within the normal caliber abdominal aorta. The spleen is unremarkable. No hydronephrosis. Normal adrenal glands. No pelvic free fluid. Normal bladder. The uterus and adnexa are unremarkable. There is a small fat-containing left inguinal hernia. Suboptimal evaluation for bowel pathology due to the lack of intravenous and oral contrast. However, no dilated loops of bowel to suggest an obstruction. Prior appendectomy. Redemonstration of the 1.7 cm intraluminal lesion within the cecum. The previous described intraluminal lesion within the ileum is not well visualized on this study. There is suggestion of a single inflamed diverticulum at the mid sigmoid colon best seen on image 220. This could represent an early acute diverticulitis. No perforation or abscess identified. The colon is decompressed. IMPRESSION: 1. Questionable minimal fat stranding at the pancreatic head. This could be reactive to the common bile duct stent. An early acute pancreatitis is not excluded. Recommend correlation with pancreatic enzymes. 2. Possible early acute diverticulitis the mid sigmoid colon. No perforation or abscess. 3. Extensive osteoblastic metastatic disease again noted. 4. Biliary and pancreatic stents in place. 5. Additional findings as described above. ACT 112: Negative or not required by law. Electronically signed by: Cullen Shipley M.D. 06/01/2023 5:26 PM Discharge Plan Visit Data Chief Complaint: Nausea Stated Complaint: NAUSEA, DIZZINESS, WEAKNESS ED Provider: Ethan Schafer Discharge Problem: JERRELL (acute kidney injury) Patient Disposition: Admitted As Inpatient Discharge Instructions Interventions: ED Discharge Assessment Last Done: 06/01/23 21:10
[2023-06-01] MEDS: SODIUM CHLORIDE 0.9% 1,000 ML IV ONE (16:56)
--- NOTE | 2023-06-01 17:28 | CT Scan Report ---
ABDOMEN AND PELVIS CT WITHOUT CONTRAST CT DOSE: 811.05 mGy.cm HISTORY: N/V, R sided abd pain, hx of biliary stents TECHNIQUE: Multiaxial CT images of the abdomen and pelvis were performed without contrast. A dose lo wering technique was utilized adhering to the principles of ALARA. COMPARISON STUDY: Abdomen and pelvis CT 05/17/2023. FINDINGS: The lung bases are clear. No pneumoperitoneum. No pneumatosis. Diffuse osteoblastic metasta tic disease is again noted. No acute fractures. There is a moderate hiatus hernia, unchanged. A 1.7 c m right breast mass again noted. Prior cholecystectomy. Pneumobilia again noted. The metallic common bile duct stent appears patent. The main pancreatic duct stent appears in good position. Duodenal div erticula are again noted. There may be minimal inflammatory change at the pancreatic head. This could represent a mild acute pancreatitis. No peripancreatic fluid collections identified. Calcified plaqu e within the normal caliber abdominal aorta. The spleen is unremarkable. No hydronephrosis. Normal ad renal glands. No pelvic free fluid. Normal bladder. The uterus and adnexa are unremarkable. There is a small fat-containing left inguinal hernia. Suboptimal evaluation for bowel pathology due to the lac k of intravenous and oral contrast. However, no dilated loops of bowel to suggest an obstruction. Lizzie or appendectomy. Redemonstration of the 1.7 cm intraluminal lesion within the cecum. The previous michelle cribed intraluminal lesion within the ileum is not well visualized on this study. There is suggestion of a single inflamed diverticulum at the mid sigmoid colon best seen on image 220. This could repres ent an early acute diverticulitis. No perforation or abscess identified. The colon is decompressed. IMPRESSION: 1. Questionable minimal fat stranding at the pancreatic head. This could be reactive to the common bi le duct stent. An early acute pancreatitis is not excluded. Recommend correlation with pancreatic enz ymes. 2. Possible early acute diverticulitis the mid sigmoid colon. No perforation or abscess. 3. Extensive osteoblastic metastatic disease again noted. 4. Biliary and pancreatic stents in place. 5. Additional findings as described above. ACT 112: Negative or not required by law. Electronically signed by: Cullen Shipley M.D. 06/01/2023 5:26 PM
--- NOTE | 2023-06-01 18:05 | History & Physical Report ---
Date of Service June 01, 2023 Assessment & Plan (1) Nausea and vomiting: Plan: Worsening RUQ abdominal cramping, nausea, and dry heaves on 05/31 Remote history of acute cholecystitis in March 2023 with stent placement A/P CT revealed possible acute early diverticulitis Elevated transaminase levels Lipase WNL at 78 Gastroenterology consulted Tramadol as needed for pain A.m. CBC, BMP (2) Acute UTI: Plan: New onset back pain, which patient reports normally occurs whenever she develops UTI UA positive on arrival No leukocytosis; afebrile UCx on 04/23/2023 was susceptible to ampicillin Unasyn 3000 mg IV q24h Follow UCx (3) Anemia: Plan: Chronic; noted Hx of blood transfusions Hgb 9.0-->8.3 on arrival No signs of active bleeding on clinical exam Trend H&H q4h Blood informed consent obtained; 2 uPRBCs ordered, held (4) Hypertension: Plan: Patient reports she has not been taking metoprolol over the past 2 months, as her home BP readings have been low Continue to hold metoprolol for now (5) Sepsis: Plan: ? Urinary source; patient became hypotensive in the ED No leukocytosis; afebrile Given history of CHF, will replace fluids at ideal body weight 1500mL (NSS 1000mL + LR 500mL) Blood cultures ordered, pending Lactate ordered, pending Unasyn (6) Hyperkalemia: Plan: Mild; K 5.5-->6.0 on arrival Trend BMP q4h Hold potassium supplementation Calcium gluconate Insulin 5u, dextrose 50% (given glucose mod-to-low in the ED) Follow a.m. labs (7) Hypomagnesemia: Plan: Magnesium 1.6 on arrival Magnesium sulfate 1 g x 2 in the ED Recheck a.m. mag (8) Stented coronary artery: Plan: Continue aspirin (9) GERD (gastroesophageal reflux disease): Plan Disposition: Admit to PCU telemetry Full code Keep n.p.o. for now, then advance to regular diet with protein supplementation VTE PPx: SCDs (will hold chemical DVT PPx until seen by gastroenterology) History of Present Illness Chief Complaint: Nausea, dry heaves, RUQ abdominal cramping Primary Care Provider: Chela Collier DO August is a pleasant 88-year-old female with PMH of SD, stented coronary artery, GERD, and s/p appendectomy, and s/p cholecystectomy. She presented for nausea and dry heaving that began the morning of 05/31. Patient had a recent [place] hospital admission for acute cholecystitis in March 2023; s/p ERCP and laparoscopic cholecystectomy 03/30. She notes she has been having intermittent abdominal cramping ever since her gallbladder surgery. This cramping is in the right upper quadrant, and she can usually tell it coming on gradually. No radiation. Alleviated by lying still. Exacerbated by lying on her right side. Patient notes she has not been able to sleep on her side as this can sometimes exacerbate the cramping; sleeps on her back. Cramping lasts 15-60 seconds at a time, and she is unsure how often it occurs. Patient did take tramadol for the cramping last night, which she reports helped a lot. She then developed nausea and dry heaves this morning; no vomiting. She was scheduled to have her stent removed in 3 weeks, but daughter was concerned for an infected stent and requested that she come into the hospital. Patient reports that she has not been eating or drinking much; does not drink much water. She did not take any of her regular morning medications today; only recent change in medications were Gas-X and Tums which she has been using for GERD. She denies smoking, alcohol use, tobacco use. Patient's vitals are stable at time of admission. ED course: Zofran 4 mg IV NSS 1000 mL IV ROS: Patient endorses lightheadedness with standing, dry cough, intermittent RUQ a bdominal cramping, nausea, back pain (she says this is common with UTIs), diarrhea (secondary to Verzenio) Patient denies fever, chills, body aches, fall, fainting, DICKSON, CP, SOB, saddle anesthesia, suprapubic pain, burning with urination, blood in urine/stool, dysuria, melena, or N/T in arms or legs. Allergies Allergy/AdvReac Type Severity Reaction Status Date / Time prochlorperazine Allergy Unknown PT'S Verified 06/01/23 17:27 [From Compazine] MOTHER HAD ANAPHYLATIC REACTION, TOLD NOT TO TAKE. ciprofloxacin [From Cipro] AdvReac Mild Nausea Verified 06/01/23 17:27 sulfamethoxazole AdvReac Mild Nausea Verified 06/01/23 17:27 [From Bactrim] trimethoprim [From Bactrim] AdvReac Mild Nausea Verified 06/01/23 17:27 Home Medications Medication Instructions Recorded Confirmed Type aspirin 81 mg tablet,delayed 81 mg PO QPM 10/16/22 06/01/23 History release atorvastatin 20 mg tablet 20 mg PO QPM 10/16/22 06/01/23 History escitalopram oxalate 5 mg tablet 5 mg PO QPM 10/16/22 06/01/23 History mecobalamin (vitamin B12) 1,000 1,000 mcg PO DAILY 10/16/22 06/01/23 History mcg chewable tablet potassium chloride 10 mEq 10 meq PO DAILY PRN PT DOESN'T 10/16/22 06/01/23 History capsule,extended release TAKE LASIX ANYMORE lorazepam 1 mg tablet 1 mg PO HS PRN Anxiety 12/09/22 06/01/23 History abemaciclib 50 mg tablet (Verzenio) 50 mg PO AMHS 12/29/22 06/01/23 History metoprolol succinate 25 mg 25 mg PO . ON HOLD AT PRESENT 03/13/23 06/01/23 History tablet,extended release 24 hr ondansetron 8 mg disintegrating 8 mg PO TID PRN Nausea And Vomiting 03/30/23 06/01/23 History tablet sacubitril 49 mg-valsartan 51 mg 1 tab PO BID 03/31/23 06/01/23 History tablet (Entresto) acetaminophen 500 mg tablet 1,000 mg PO AMHS PRN Pain 04/23/23 06/01/23 History (Tylenol Extra Strength) tramadol 50 mg tablet 50 mg PO Q6H PRN Pain 05/04/23 06/01/23 History calcium carbonate 200 mg calcium 200 - 400 mg PO DIRECTED PRN 06/01/23 06/01/23 History (500 mg) chewable tablet (Tums) HEARTBURN/INDIGESTION food supplemt, lactose-reduced 1 ea PO DAILY 06/01/23 06/01/23 History protein 1 ea PO DAILY 06/01/23 06/01/23 History simethicone 80 mg chewable tablet 80 mg PO DIRECTED PRN GAS 06/01/23 06/01/23 History DISCOMFORT Past Med/Surg History Medical History (Updated 06/01/23 @ 21:43 by Ethan Schafer DO) Anemia Choledocholithiasis Acute cholecystitis Hypercholesterolemia CHF (congestive heart failure) Anxiety Urinary urgency 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 Jhaveri>rt breast (no surgery) Skin, right breast mass, incisional biopsy: - Invasive ductal carcinoma - Histologic grade: Low - Tubules: 3/3 - Nuclei: 1/3 - Mitoses: 1/3 - In situ component: Present H/O wrist surgery right Family History Aunt Breast cancer Father Heart disease Brother Heart disease Colorectal cancer Mother Clotting disorder Other No family history of adverse response to anesthesia Social History Smoking Status: Never smoker Second Hand Exposure: No; Do You Dip or Chew Tobacco: No; Hx Alcohol Use: No Hx Substance Use: No Preferred Language: Bulgarian Communication Ability: Effective Natural Resource Technician Required: No Beliefs That Will Affect Care: Worship Worship Beliefs: Mormonism marital status: / Current Living Situation: Alone current occupational status: retired How many Children do You have: 1 Feels Safe at Home: Yes during the past year weight has: remained stable Assistive Devices: Walker Review of Systems Review of Systems: See HPI above Physical Exam Physical Exam: General: no acute distress; pleasant affect; non-toxic appearing; well- nourished; cooperative; SpO2 98% on RA HEENT: normocephalic, atraumatic; no scleral icterus; PERRLA; vision and hearing grossly intact Neck: supple; no lymphadenopathy; trachea midline Skin: warm, dry without signs of tenting; no cyanosis; no rashes, bruising, lesions, or erythema noted CV: chest wall NTP; RRR; S1/S2 normal; no murmurs/rubs/gallops; pulses intact and symmetric at radial, DP, and PT Lungs: no acute respiratory distress; symmetrical chest wall expansion; clear breath sounds across all lung marques w/o adventitious sounds; no wheezing ABD: Soft, NTP; RUQ is NTP; BS present; no rebound/guarding; no distention; no signs of rashes, bruising, or active bleeding on the abdomen MSK: no tics or fasciculations; no edema noted in the LEs b/l, nonerythematous Neuro: A&Ox3; normal mood and affect; fluent speech; no focal deficits; sensation grossly intact in the LEs b/l Results & Data Results & Data Vital Signs (Past 12 Hours) Vital Signs Temp Pulse Resp BP Pulse Ox O2 Del Method 06/01/23 18:01 87 22 95/56 L 100 06/01/23 18:00 83 18 99 06/01/23 17:50 84 19 98 06/01/23 17:40 90 24 06/01/23 17:39 90 15 124/60 06/01/23 17:30 98 06/01/23 17:20 98 06/01/23 17:10 98 06/01/23 17:09 98 06/01/23 16:40 88 22 94 06/01/23 16:30 78 19 93/51 L 97 06/01/23 16:20 85 22 99 06/01/23 16:12 85 06/01/23 16:10 79 20 97 06/01/23 16:00 81 20 103/53 L 98 06/01/23 15:50 88 24 97 06/01/23 15:40 88 24 138/75 06/01/23 15:34 87 18 06/01/23 15:30 75 19 06/01/23 15:20 75 22 06/01/23 15:10 80 18 06/01/23 15:00 78 22 06/01/23 14:59 74 22 06/01/23 13:12 36.5 C 85 18 107/67 99 Room Air Laboratory Results Abnormal lab results 06/01/23 06/01/23 Range/Units 14:11 15:38 RBC 2.98 L (4.20-5.40) M/uL Hgb 9.0 L (12.0-16.0) g/dl Hct 28.6 L (37.0-47.0) % MCHC 31.5 L (32.0-36.0) g/dL RDW Std Deviation 61.1 H (36.4-46.3) fL RDW Coeff of Kirill 17.4 H (11.5-14.5) % MPV 9.2 L (9.4-12.4) fL Sodium 133 L (136-145) mmol/L Potassium 5.5 H (3.5-5.1) mmol/L Carbon Dioxide 17 L (21-32) mmol/L BUN 70 H (6-23) mg/dl Creatinine 3.08 H (0.6-1.2) mg/dl BUN/Creatinine Ratio 22.7 H (10-20) AST 81 H (13-39) U/L ALT 108 H (7-52) U/L Alkaline Phosphatase 203 H (34-104) U/L Urine Appearance Cloudy A (Clear) Urine Protein Trace H (Negative) Ur Leukocyte Esterase 2+ H (Negative) Urine WBC (Auto) >30 H (0-5) /hpf U Epithel Cells (Auto) 20-30 H (0-5) /lpf Urine Bacteria (Auto) 4+ H (Negative) Diagnostic Findings Abdomen/Pelvis CT 06/01/23 16:[address] WITHOUT CONTRAST CT DOSE: 811.05 mGy.cm HISTORY: N/V, R sided abd pain, hx of biliary stents TECHNIQUE: Multiaxial CT images of the abdomen and pelvis were performed without contrast. A dose lowering technique was utilized adhering to the principles of ALARA. COMPARISON STUDY: Abdomen and pelvis CT 05/17/2023. FINDINGS: The lung bases are clear. No pneumoperitoneum. No pneumatosis. 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 No acute fractures. There is a moderate hiatus hernia, unchanged. A 1.7 cm right breast mass again noted. Prior cholecystectomy. Pneumobilia again noted. The metallic common bile duct stent appears patent. The main pancreatic duct stent appears in good position. 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 There may be minimal inflammatory change at the pancreatic head. This could represent a mild acute pancreatitis. No peripancreatic fluid collections identified. Calcified plaque within the normal caliber abdominal aorta. The spleen is unremarkable. No hydronephrosis. Normal adrenal glands. No pelvic free fluid. Normal bladder. The uterus and adnexa are unremarkable. There is a small fat-containing left inguinal hernia. Suboptimal evaluation for bowel pathology due to the lack of intravenous and oral contrast. However, no dilated loops of bowel to suggest an obstruction. Prior appendectomy. Redemonstration of the 1.7 cm intraluminal lesion within the cecum. The previous described intraluminal lesion within the ileum is not well visualized on this study. There is suggestion of a single inflamed diverticulum at the mid sigmoid colon best seen on image 220. This could represent an early acute diverticulitis. No perforation or abscess identified. The colon is decompressed. IMPRESSION: 1. Questionable minimal fat stranding at the pancreatic head. This could be reactive to the common bile duct stent. An early acute pancreatitis is not e xcluded. Recommend correlation with pancreatic enzymes. 2. Possible early acute diverticulitis the mid sigmoid colon. No perforation or abscess. 3. Extensive osteoblastic metastatic disease again noted. 4. Biliary and pancreatic stents in place. 5. Additional findings as described above. ACT 112: Negative or not required by law. Electronically signed by: Cullen Shipley M.D. 06/01/2023 5:26 PM Code Status & VTE Plan Code Status Full code VTE Prophylaxis Plan VTE Prophylaxis will be ordered: Yes Supervising Physician Co-Signing Physician Notes Wanda is an 88-year-old female with a history of CAD, GERD, dcis on abemaciclib, CAD/CHF with reduced ejection fraction 35% 06/2021 on Entresto, anxiety who was last admitted 03/30/2023 - 04/05/2023 for acute cholecystitis s/p ERCP with lap braulio who presents to the ER with gradually worsening abdominal discomfort dry heaves and nausea CTA/P with pancreatic head fat stranding? Reactive to CBD stent versus early acute pancreatitis, possible early acute diverticulitis in the mid sigmoid colon without perforation or abscess, extensive metastatic osteoblastic disease redemonstrated, and pancreatic and biliary stents in place. She has no leukocytosis. Baseline kidney function approximately 1.41.7, recently as high as 2.07. She has an JERRELL on admission with creatinine 3.08. Volume contracted. Potassium is 5.5. Patient has a mild transaminitis with downtrending alk phos but slightly uptrending AST/ALT from prior. Lipase is normal UA is infected appearing, patient does feel her back pain is consistent with prior UTIs. Patient has had severe volume depletion, has not eaten or drank in about 2 days with nausea and some right lower/flank pain. While CT is concerning for potential pancreatitis her lipase is normal and pain is not near the epigastrium/LUQ. She does have signs of early diverticulitis and volume depletion. She is scheduled to have her biliary stent removed in 2 weeks at [place]. Patient is mildly hypotensive and with evidence of metabolic acidosis on admission. Differential includes early diverticulitis versus stent infection. Unasyn which will cover both GI pathogens and prior UC cultures, ord ered 1 L NSS IVF in the ER. This will complete 1500 cc of ideal body weight resuscitation with 500 cc of additional saline for 1500 cc total. Additional bolus to be done clinically due to history of heart failure with reduced ejection fraction of 35% on Entresto. Clinically volume depleted at admitting assessment. Blood cultures have been sent. Lactate is elevated, patient does have a metabolic acidosis. Potassium 5.5 with severe volume contraction, will recheck this post fluids and additional hyperkalemia treatment based on reassessment. She does not have peaked T waves or widened QRS on EKG. Seen on reassessment at the bedside. She feels greatly clinically improved has had almost complete resolution of her pain. She is clinically improved and potassium has up trended. She remains with a mild hyperchloremic acidosis. Did receive an additional 500 cc of fluid as LR due to her underlying additional hyperchloremic metabolic acidosis, this is still dilute the plasma with respect to potassium; in addition to calcium gluconate D5/insulin. BMP repeated every 4 hours. If up trends and does not improve with fluids, give 1 dose of Lokelma. Creatinine is beginning to downtrend. Magnesium repleted. Entresto temporarily held. Clinically improved and appears to be doing well with supportive care and antibiotic treatment. Can continue antibiotics and keep her [facility] appointment for her stent management however if she has progressive upper quadrant pain with concern for stent involvement that would require transfer for GI with stent management capability at that time. This is not required at time of admission. PG Care Time/CCT Total # of Minutes Spent Total Time Spent with Patient: Total time spent is greater than 50% in coordination of care (as documented) at patient's floor/unit and/or counseling patient: Coding [place] [address] INT INP/OBS CARE 3/75MIN Patient Type Established History Comprehensive Exam Comprehensive Medical Decision Making High Complexity Diagnoses Nausea and vomiting R11.2 Acute UTI N39.0 Anemia D64.9 Hypertension I10 Sepsis A41.9 Hyperkalemia E87.5 Hypomagnesemia E83.42 Stented coronary artery Z95.5 GERD (gastroesophageal reflux disease) K21.9
[2023-06-01] MEDS: LACTATED RINGER'S 500 ML IV ONE (18:49)
[2023-06-01] MEDS: AMPICILLIN/SULBACTAM SOD 3,000 MG in SODIUM CHLOR 0.9% MINI-B 100 ML IV SCH (19:15)
[2023-06-01 19:21] LABS: Hematocrit (blood only) 26.4 % (37.0-47.0); Hemoglobin 8.3 g/dl (12.0-16.0)
[2023-06-01 19:38] LABS: BUN Creatinine Ratio 23.8 (10-20); Calcium 9.2 mg/dl (8.6-10.3); Creatinine Clr Calc Pharmacy 11.4 ml/min; Est GFR (African American) 16.9 ml/min; Est GFR (Non-African American) 14.6 ml/min; Magnesium 1.6 mg/dl (1.7-2.4)
[2023-06-01] MEDS ORDERED: STAT IV/IM STA (19:43)
[2023-06-01] MEDS ORDERED: INSULIN HUMAN REGULAR PER UNIT 5 UNITS in SYRINGE 9.9 ML IV STA (19:43)
[2023-06-01] MEDS ORDERED: SODIUM CHLORIDE 0.9% 250 ML IV PRN (19:55)
[2023-06-01] MEDS: NovoLIN-R INSULIN PER UNIT CHARGE IV ONE (20:02)
[2023-06-01] MEDS: MAGNESIUM SULFATE / D5W 1 GM/100 ML BAG IV SCH (20:02)
[2023-06-01] MEDS: DEXTROSE 50% 50 ML SYRINGE IV STA (20:02)
[2023-06-01] MEDS: CALCIUM GLUCONATE 10% 1,000 MG in SODIUM CHLOR 0.9% MINI-B 50 ML IV ONE (20:29)
[2023-06-01] MEDS ORDERED: LORazepam 1 MG TAB PO PRN (21:30)
[2023-06-01] MEDS: ASPIRIN 81 MG ECTAB PO SCH (22:48)
[2023-06-01] MEDS: ONDANSETRON INJ 2 MG/ML 2 ML VIAL IV PRN (22:52)
[2023-06-01 23:33] LABS: Hematocrit (blood only) 27.2 % (37.0-47.0); Hemoglobin 8.6 g/dl (12.0-16.0)
[2023-06-01 23:45] LABS: BUN Creatinine Ratio 23.6 (10-20); Calcium 9.8 mg/dl (8.6-10.3); Creatinine Clr Calc Pharmacy 11.8 ml/min; Est GFR (African American) 17.7 ml/min; Est GFR (Non-African American) 15.3 ml/min; Potassium 5.5 mmol/L (3.5-5.1)
[2023-06-02 02:43] LABS: Calcium 9.3 mg/dl (8.6-10.3); Potassium 5.6 mmol/L (3.5-5.1)
[2023-06-02 02:49] LABS: BUN Creatinine Ratio 25.9 (10-20); Creatinine Clr Calc Pharmacy 13.1 ml/min; Est GFR (African American) 20.2 ml/min; Est GFR (Non-African American) 17.4 ml/min
--- NOTE | 2023-06-02 07:26 | Hospitalist Progress Note ---
Date of Service June 02, 2023 Assessment & Plan (1) Nausea and vomiting: Plan: -Patient with recent cholecystectomy along with ERCP and stent placement, had planned to have removed in 2 weeks. -Has had symptoms of nausea, weakness, dry heaves worsening over past few days. -CT A&P with minimal fat stranding pancreatic head, possible early diverticulitis, biliary and pancreatic stents in place. -Hgb 8.6 but stable, K 6.0 on admission, creat elevated to 3.08 (baseline ~1.7), LFTs elevated. -U/A with WBC, LE, 4+ Bacteria, culture pending. -Patient was placed on Unasyn on admission for potential UTI source to symptoms as well as potential stent infection as source. -GI consulted, given elevated LFTs, possible early pancreatitis on CT, patient's issues may be related to stent/retained CBD stone. -May need ERCP sooner/transfer to [facility] if does not improve. -Will continue Unasyn for now, follow urine cultures and patient's symptoms. -Accepted to [facility] for ERCP however not emergent as patient stable. Trnasfer when bed available. (2) Acute UTI: Plan: -Same plan as above. Will follow cultures and continue Unasyn. (3) JERRELL (acute kidney injury): Plan: -Creatinine 3.08 on admission with baseline 1.5-1.9. -JERRELL possibly due to dehydration, infection, combination. -Hold nephrotoxic agents. -Trending back down. -Received 1500cc fluid per sepsis protocol, will hold off on further fluid at this time due to CHF. -Continue to trend with AM BMP. (4) Anemia: Plan: -Chronic, history of transfusions however no signs of active bleeding. -Blood consented and 2U PRBC held in case patient needs. (5) Sepsis: Plan: -Patient hypotensive to 93/51 on admission, given (6) Hyperkalemia: Plan: -K 6.0 on admission with trending down with 5U insulin + D5 -EKG without peaked T waves. Given calcium gluconate on admission. -K uptrended to 5.9, may have to do with JERRELL and dehydration in the face of infection. -Will start on 60ml/hr LR x1L as well as Lokelma. -Continue to monitor BMP q4h (7) Hypomagnesemia: Plan: -Mag 1.6 on admission. -Repleted 2gm Mg sulfate. (8) Hypertension: Plan: -Had been taking metoprolol however will hold for now given low blood pressures in face of infection. Plan F/E/N/GI: NPO to give bowel rest. DVT Prophylaxis: SCD, hold chemoprophylaxis if obtaining ERCP tomorrow or next day. Code status: Full Dispo: PCU, transfer to [facility] when bed available for ERCP and stent removal. Admission and Anticipated Discharge Date Admission Date: June 01, 2023 Supervising Physician Co-Signing Physician Notes I personally examined the patient and verified all brito points of history and exam, discussed case, and agree with decision making with Dr Lazaro feeling better overall but also NPO. notes pain RUQ almost entirely, episodes fairly severe about bid prior to admission. poor PO intake. vitals noted nad heent nc at mmm breathing unlabored RUQ no rigidity abdominal pain - RUQ, elevated AST/ALT/alk phos - agree w GI suspect nguyen nt/stone/?less likely cholangitis related. stable but warrants ERCP. given her PO intake was poor enough to cause JERRELL on baseline ~stage 4 CKD with consequent hyperkalemia - i really doubt she'd do well with this as an outpatient. IV fluids, manage K, unasyn. d/w [facility] transfer team - we have no biliary GI at this facility - her biliary GI now practices at [facility] - can transfer there - triage officer noted they will work on a bed. continue current care otherwise chronic systolic CHF w EF ~35% per most recent cardiology notes - appearing compensated/stable Subjective Patient seen at the bedside stating she has some improvement in her symptoms of dry heaving however still getting somewhat nauseous while moving around. She stated that prior to coming in she was getting symptoms similar to when she gets UTI - when she gets UTI's she may get nausea, feel off, +/- back pain with it. However the pain she has is at the RUQ and is a squeezing type pain, she states the pain is not present if pressing on the area and correlated with the dry heaving. Review of Systems Review of Systems: As per HPI. Physical Exam Constitutional: WD/WN, vitals as above Eyes: PERRL, conjunctivae normal, anicteric sclerae Respiratory: normal respiratory effort, lungs clear to auscultation Cardiovascular: RRR, no murmur, no edema Gastrointestinal (Abdomen): BS+, surgical incisions well healed without erythema or discharge, nontender at the RUQ, mild tenderness at the LUQ, no rebound or guarding, nondistended, soft. Psychiatric: A+Ox3, euthymic affect Results & Data Results & Data Vital Signs (Past 12 Hours) Vital Signs Temp Pulse Pulse Resp BP BP Pulse Ox 06/02/23 03:52 36.8 C 80 20 113/63 96 06/01/23 22:29 36.8 C 78 18 115/61 97 06/01/23 21:44 06/01/23 21:28 76 06/01/23 21:10 06/01/23 21:09 36.5 C 82 20 152/58 H 99 06/01/23 20:30 93 H 26 H 124/67 06/01/23 20:07 79 06/01/23 20:00 78 21 119/52 L 06/01/23 19:30 84 24 124/62 O2 Del Method 06/02/23 03:52 Room Air 06/01/23 22:29 Room Air 06/01/23 21:44 Room Air 06/01/23 21:28 06/01/23 21:10 Room Air 06/01/23 21:09 Room Air 06/01/23 20:30 06/01/23 20:07 06/01/23 20:00 06/01/23 19:30 Resident Activity Tracking Resident Involvement: Resident Care Provided Care Provided: Adult Hospital Medicine
[2023-06-02 07:59] LABS: Calcium 9.3 mg/dl (8.6-10.3); Creatinine Clr Calc Pharmacy 13.1 ml/min; Est GFR (African American) 20.1 ml/min; Est GFR (Non-African American) 17.3 ml/min; Potassium 5.9 mmol/L (3.5-5.1)
--- NOTE | 2023-06-02 09:55 | Gastrointestinal Consultation ---
Date of Consultation June 02, 2023 Assessment & Plan (1) Nausea and vomiting: Pleasant woman with short lived cramping right upper abdominal pain associated with nausea. Her LFT's are elevated now and were normal on May 07. She had an ERCP with CBD stone extraction and a 7 Fr stent left in place at the end of March. I suspect her issues are related to the stent and/or retained CBD stone. I suspect she needs ERCP at some point and resultant stent removal if nothing else found. Possible early pancreatitis is seen on CT which would point to the need for that as well. If she improves it is possible she can still do this as an outpatient but I suspect she will need transfer to [place] to get this done reasonably soon. History of Present Illness Reason for Consultation: abdominal pain Attending Physician: Rancho Garner DO History of Present Illness 88 year old female who had a cholecystectomy in March and had a stent placed after several CBD stones were removed. At that time she also had a colonoscopy and has several large polyps that need EMR or ESD for resection. She tells me she has had some right upper abdominal cramping pains and nausea since her stent was placed but worse over the past week. She does say the pains don't last more than a minute or so. She battles a lot with UTI and that is what she thought this was. CT on admit suggests "possible early pancreatitis" and "possible early diverticulitis". LFT's are elevated and were normal on May 07. Today she feels much better. Allergies Allergy/AdvReac Type Severity Reaction Status Date / Time prochlorperazine Allergy Unknown PT'S Verified 06/01/23 17:27 [From Compazine] MOTHER HAD ANAPHYLATIC REACTION, TOLD NOT TO TAKE. ciprofloxacin [From Cipro] AdvReac Mild Nausea Verified 06/01/23 17:27 sulfamethoxazole AdvReac Mild Nausea Verified 06/01/23 17:27 [From Bactrim] trimethoprim [From Bactrim] AdvReac Mild Nausea Verified 06/01/23 17:27 Home Medications Medication Instructions Recorded Confirmed Type aspirin 81 mg tablet,delayed 81 mg PO QPM 10/16/22 06/01/23 History release atorvastatin 20 mg tablet 20 mg PO QPM 10/16/22 06/01/23 History escitalopram oxalate 5 mg tablet 5 mg PO QPM 10/16/22 06/01/23 History mecobalamin (vitamin B12) 1,000 1,000 mcg PO DAILY 10/16/22 06/01/23 History mcg chewable tablet potassium chloride 10 mEq 10 meq PO DAILY PRN PT DOESN'T 10/16/22 06/01/23 History capsule,extended release TAKE LASIX ANYMORE lorazepam 1 mg tablet 1 mg PO HS PRN Anxiety 12/09/22 06/01/23 History abemaciclib 50 mg tablet (Verzenio) 50 mg PO AMHS 12/29/22 06/01/23 History metoprolol succinate 25 mg 25 mg PO . ON HOLD AT PRESENT 03/13/23 06/01/23 History tablet,extended release 24 hr ondansetron 8 mg disintegrating 8 mg PO TID PRN Nausea And Vomiting 03/30/23 06/01/23 History tablet sacubitril 49 mg-valsartan 51 mg 1 tab PO BID 03/31/23 06/01/23 History tablet (Entresto) acetaminophen 500 mg tablet 1,000 mg PO AMHS PRN Pain 04/23/23 06/01/23 History (Tylenol Extra Strength) tramadol 50 mg tablet 50 mg PO Q6H PRN Pain 05/04/23 06/01/23 History calcium carbonate 200 mg calcium 200 - 400 mg PO DIRECTED PRN 06/01/23 06/01/23 History (500 mg) chewable tablet (Tums) HEARTBURN/INDIGESTION food supplemt, lactose-reduced 1 ea PO DAILY 06/01/23 06/01/23 History protein 1 ea PO DAILY 06/01/23 06/01/23 History simethicone 80 mg chewable tablet 80 mg PO DIRECTED PRN GAS 06/01/23 06/01/23 History DISCOMFORT Patient History Medical History Anemia Choledocholithiasis Acute cholecystitis Hypercholesterolemia CHF (congestive heart failure) Anxiety Urinary urgency 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 Jhaveri>rt breast (no surgery) Skin, right breast mass, incisional biopsy: - Invasive ductal carcinoma - Histologic grade: Low - Tubules: 3/3 - Nuclei: 1/3 - Mitoses: 1/3 - In situ component: Present H/O wrist surgery right Family History Aunt Breast cancer Father Heart disease Brother Heart disease Colorectal cancer Mother Clotting disorder Other No family history of adverse response to anesthesia Social History Smoking Status: Never smoker Second Hand Exposure: No; Do You Dip or Chew Tobacco: No; Hx Alcohol Use: No Hx Substance Use: No Preferred Language: Filipino Communication Ability: Effective Oxygen Furnace Operator Required: No Beliefs That Will Affect Care: None marital status: / Current Living Situation: Alone current occupational status: retired How many Children do You have: 1 Other Information That Helps Us Care for You: No Feels Safe at Home: Yes Safety Concerns: Feels Safe At This Time during the past year weight has: remained stable Assistive Devices: Walker Review of Systems Review of Systems: All systems reviewed & are unremarkable except as noted in HPI & below Physical Exam Physical Exam: Pleasant, talkative in no distress Constitutional: WD/WN, vitals as above Neck: trachea midline, no thyromegaly Respiratory: normal respiratory effort, lungs clear to auscultation Cardiovascular: RRR, no murmur, no edema Gastrointestinal (Abdomen): normal bowel sounds, soft, nontender, no hepatosplenomegaly Results & Data Vital Signs (Past 12 Hours) Vital Signs Temp Pulse Resp BP Pulse Ox O2 Del Method 06/02/23 07:00 36.8 C 74 16 117/57 L 98 Room Air 06/02/23 03:52 36.8 C 80 20 113/63 96 Room Air 06/01/23 22:29 36.8 C 78 18 115/61 97 Room Air Laboratory Results 06/02/23 06/02/23 06/01/23 Range/Units 06:50 02:12 22:56 WBC (4.8-10.8) K/ul RBC (4.20-5.40) M/uL Hgb 8.6 L (12.0-16.0) g/dl Hct 27.2 L (37.0-47.0) % MCV (80.0-100.0) fL MCH (25.0-34.0) pg MCHC (32.0-36.0) g/dL RDW Std Deviation (36.4-46.3) fL RDW Coeff of Kirill (11.5-14.5) % Plt Count (130-400) K/uL MPV (9.4-12.4) fL Immature Gran % (Auto) % Neut % (Auto) % Lymph % (Auto) % [place] % (Auto) % Eos % (Auto) % Baso % (Auto) % Neut # (Auto) (1.40-6.50) K/uL Lymph # (Auto) (1.20-3.40) K/uL [place] # (Auto) (0.11-0.59) K/uL Eos # (Auto) (0.00-0.50) K/uL Baso # (Auto) (0.00-0.20) K/uL Immature Gran # (Auto) (0.01-0.20) K/uL Sodium 137 137 (136-145) mmol/L Potassium 5.9 H 5.6 H (3.5-5.1) mmol/L Chloride 114 H 113 H (98-107) mmol/L Carbon Dioxide 17 L 15 L (21-32) mmol/L Anion Gap 6 9 (3-11) BUN 61 H 63 H (6-23) mg/dl Creatinine 2.44 H 2.43 H (0.6-1.2) mg/dl Est Cr Clr Drug Dosing 13.1 13.1 ml/min Est GFR ( Amer) 20.1 20.2 ml/min Est GFR (Non-Af Amer) 17.3 17.4 ml/min BUN/Creatinine Ratio 25.0 H 25.9 H (10-20) Glucose 85 96 (70-99(Fasting)) mg/dl POC Glucose (70-99) mg/dl Lactate (0.4-2.0) mmol/L Calcium 9.3 9.3 (8.6-10.3) mg/dl Magnesium (1.7-2.4) mg/dl Total Bilirubin (0.2-1.0) mg/dl AST (13-39) U/L ALT (7-52) U/L Alkaline Phosphatase (34-104) U/L Total Protein (6.0-8.3) gm/dl Albumin (3.4-5.0) gm/dl Globulin (2.5-4.0) gm/dl Albumin/Globulin Ratio (0.9-2) Lipase (11-82) U/L Urine Color Urine Appearance (Clear) Urine pH (4.5-7.5) Ur Specific [place] (1.000-1.030) Urine Protein (Negative) Urine Glucose (UA) (Negative) Urine Ketones (Negative) Urine Blood (Negative) Urine Nitrite (Negative) Urine Bilirubin (Negative) Urine Urobilinogen (Negative) Ur Leukocyte Esterase (Negative) Urine WBC (Auto) (0-5) /hpf Urine RBC (Auto) (0-4) /hpf U Hyaline Cast (Auto) (0-5) /lpf U Epithel Cells (Auto) (0-5) /lpf Urine Bacteria (Auto) (Negative) Blood Type Antibody Screen Crossmatch 06/01/23 06/01/23 06/01/23 Range/Units 22:55 20:39 20:11 WBC (4.8-10.8) K/ul RBC (4.20-5.40) M/uL Hgb (12.0-16.0) g/dl Hct (37.0-47.0) % MCV (80.0-100.0) fL MCH (25.0-34.0) pg MCHC (32.0-36.0) g/dL RDW Std Deviation (36.4-46.3) fL RDW Coeff of Kirill (11.5-14.5) % Plt Count (130-400) K/uL MPV (9.4-12.4) fL Immature Gran % (Auto) % Neut % (Auto) % Lymph % (Auto) % [place] % (Auto) % Eos % (Auto) % Baso % (Auto) % Neut # (Auto) (1.40-6.50) K/uL Lymph # (Auto) (1.20-3.40) K/uL [place] # (Auto) (0.11-0.59) K/uL Eos # (Auto) (0.00-0.50) K/uL Baso # (Auto) (0.00-0.20) K/uL Immature Gran # (Auto) (0.01-0.20) K/uL Sodium 135 L (136-145) mmol/L Potassium 5.5 H (3.5-5.1) mmol/L Chloride 110 H (98-107) mmol/L Carbon Dioxide 16 L (21-32) mmol/L Anion Gap 9 (3-11) BUN 64 H (6-23) mg/dl Creatinine 2.71 H (0.6-1.2) mg/dl Est Cr Clr Drug Dosing 11.8 ml/min Est GFR ( Amer) 17.7 ml/min Est GFR (Non-Af Amer) 15.3 ml/min BUN/Creatinine Ratio 23.6 H (10-20) Glucose 82 (70-99(Fasting)) mg/dl POC Glucose 153 H (70-99) mg/dl Lactate (0.4-2.0) mmol/L Calcium 9.8 (8.6-10.3) mg/dl Magnesium (1.7-2.4) mg/dl Total Bilirubin (0.2-1.0) mg/dl AST (13-39) U/L ALT (7-52) U/L Alkaline Phosphatase (34-104) U/L Total Protein (6.0-8.3) gm/dl Albumin (3.4-5.0) gm/dl Globulin (2.5-4.0) gm/dl Albumin/Globulin Ratio (0.9-2) Lipase (11-82) U/L Urine Color Urine Appearance (Clear) Urine pH (4.5-7.5) Ur Specific [place] (1.000-1.030) Urine Protein (Negative) Urine Glucose (UA) (Negative) Urine Ketones (Negative) Urine Blood (Negative) Urine Nitrite (Negative) Urine Bilirubin (Negative) Urine Urobilinogen (Negative) Ur Leukocyte Esterase (Negative) Urine WBC (Auto) (0-5) /hpf Urine RBC (Auto) (0-4) /hpf U Hyaline Cast (Auto) (0-5) /lpf U Epithel Cells (Auto) (0-5) /lpf Urine Bacteria (Auto) (Negative) Blood Type O Positive Antibody Screen NEGATIVE Crossmatch See Detail 06/01/23 06/01/23 06/01/23 Range/Units 19:04 18:50 15:38 WBC (4.8-10.8) K/ul RBC (4.20-5.40) M/uL Hgb 8.3 L (12.0-16.0) g/dl Hct 26.4 L (37.0-47.0) % MCV (80.0-100.0) fL MCH (25.0-34.0) pg MCHC (32.0-36.0) g/dL RDW Std Deviation (36.4-46.3) fL RDW Coeff of Kirill (11.5-14.5) % Plt Count (130-400) K/uL MPV (9.4-12.4) fL Immature Gran % (Auto) % Neut % (Auto) % Lymph % (Auto) % [place] % (Auto) % Eos % (Auto) % Baso % (Auto) % Neut # (Auto) (1.40-6.50) K/uL Lymph # (Auto) (1.20-3.40) K/uL [place] # (Auto) (0.11-0.59) K/uL Eos # (Auto) (0.00-0.50) K/uL Baso # (Auto) (0.00-0.20) K/uL Immature Gran # (Auto) (0.01-0.20) K/uL Sodium 134 L (136-145) mmol/L Potassium 6.0 H (3.5-5.1) mmol/L Chloride 111 H (98-107) mmol/L Carbon Dioxide 17 L (21-32) mmol/L Anion Gap 6 (3-11) BUN 67 H (6-23) mg/dl Creatinine 2.81 H (0.6-1.2) mg/dl Est Cr Clr Drug Dosing 11.4 ml/min Est GFR ( Amer) 16.9 ml/min Est GFR (Non-Af Amer) 14.6 ml/min BUN/Creatinine Ratio 23.8 H (10-20) Glucose 97 (70-99(Fasting)) mg/dl POC Glucose (70-99) mg/dl Lactate 0.6 (0.4-2.0) mmol/L Calcium 9.2 (8.6-10.3) mg/dl Magnesium 1.6 L (1.7-2.4) mg/dl Total Bilirubin (0.2-1.0) mg/dl AST (13-39) U/L ALT (7-52) U/L Alkaline Phosphatase (34-104) U/L Total Protein (6.0-8.3) gm/dl Albumin (3.4-5.0) gm/dl Globulin (2.5-4.0) gm/dl Albumin/Globulin Ratio (0.9-2) Lipase (11-82) U/L Urine Color Yellow Urine Appearance Cloudy A (Clear) Urine pH 5.0 (4.5-7.5) Ur Specific [place] 1.013 (1.000-1.030) Urine Protein Trace H (Negative) Urine Glucose (UA) Negative (Negative) Urine Ketones Negative (Negative) Urine Blood Negative (Negative) Urine Nitrite Negative (Negative) Urine Bilirubin Negative (Negative) Urine Urobilinogen Negative (Negative) Ur Leukocyte Esterase 2+ H (Negative) Urine WBC (Auto) >30 H (0-5) /hpf Urine RBC (Auto) 0-4 (0-4) /hpf U Hyaline Cast (Auto) 1-5 (0-5) /lpf U Epithel Cells (Auto) 20-30 H (0-5) /lpf Urine Bacteria (Auto) 4+ H (Negative) Blood Type Antibody Screen Crossmatch 06/01/23 Range/Units 14:11 WBC 5.76 (4.8-10.8) K/ul RBC 2.98 L (4.20-5.40) M/uL Hgb 9.0 L (12.0-16.0) g/dl Hct 28.6 L (37.0-47.0) % MCV 96.0 (80.0-100.0) fL MCH 30.2 (25.0-34.0) pg MCHC 31.5 L (32.0-36.0) g/dL RDW Std Deviation 61.1 H (36.4-46.3) fL RDW Coeff of Kirill 17.4 H (11.5-14.5) % Plt Count 221 (130-400) K/uL MPV 9.2 L (9.4-12.4) fL Immature Gran % (Auto) 0.2 % Neut % (Auto) 56.9 % Lymph % (Auto) 31.8 % [place] % (Auto) 7.5 % Eos % (Auto) 2.6 % Baso % (Auto) 1.0 % Neut # (Auto) 3.28 (1.40-6.50) K/uL Lymph # (Auto) 1.83 (1.20-3.40) K/uL [place] # (Auto) 0.43 (0.11-0.59) K/uL Eos # (Auto) 0.15 (0.00-0.50) K/uL Baso # (Auto) 0.06 (0.00-0.20) K/uL Immature Gran # (Auto) 0.01 (0.01-0.20) K/uL Sodium 133 L (136-145) mmol/L Potassium 5.5 H (3.5-5.1) mmol/L Chloride 107 (98-107) mmol/L Carbon Dioxide 17 L (21-32) mmol/L Anion Gap 9 (3-11) BUN 70 H (6-23) mg/dl Creatinine 3.08 H (0.6-1.2) mg/dl Est Cr Clr Drug Dosing 10.4 ml/min Est GFR ( Amer) 15.2 ml/min Est GFR (Non-Af Amer) 13.1 ml/min BUN/Creatinine Ratio 22.7 H (10-20) Glucose 93 (70-99(Fasting)) mg/dl POC Glucose (70-99) mg/dl Lactate (0.4-2.0) mmol/L Calcium 9.7 (8.6-10.3) mg/dl Magnesium (1.7-2.4) mg/dl Total Bilirubin 0.5 (0.2-1.0) mg/dl AST 81 H (13-39) U/L ALT 108 H (7-52) U/L Alkaline Phosphatase 203 H (34-104) U/L Total Protein 6.9 (6.0-8.3) gm/dl Albumin 3.5 (3.4-5.0) gm/dl Globulin 3.4 (2.5-4.0) gm/dl Albumin/Globulin Ratio 1.0 (0.9-2) Lipase 78 (11-82) U/L Urine Color Urine Appearance (Clear) Urine pH (4.5-7.5) Ur Specific [place] (1.000-1.030) Urine Protein (Negative) Urine Glucose (UA) (Negative) Urine Ketones (Negative) Urine Blood (Negative) Urine Nitrite (Negative) Urine Bilirubin (Negative) Urine Urobilinogen (Negative) Ur Leukocyte Esterase (Negative) Urine WBC (Auto) (0-5) /hpf Urine RBC (Auto) (0-4) /hpf U Hyaline Cast (Auto) (0-5) /lpf U Epithel Cells (Auto) (0-5) /lpf Urine Bacteria (Auto) (Negative) Blood Type Antibody Screen Crossmatch Diagnostic Findings Abdomen/Pelvis CT 06/01/23 16:[address] WITHOUT CONTRAST CT DOSE: 811.05 mGy.cm HISTORY: N/V, R sided abd pain, hx of biliary stents TECHNIQUE: Multiaxial CT images of the abdomen and pelvis were performed without contrast. A dose lowering technique was utilized adhering to the principles of ALARA. COMPARISON STUDY: Abdomen and pelvis CT 05/17/2023. FINDINGS: The lung bases are clear. No pneumoperitoneum. No pneumatosis. 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 No acute fractures. There is a moderate hiatus hernia, unchanged. A 1.7 cm right breast mass again noted. Prior cholecystectomy. Pneumobilia again noted. The metallic common bile duct stent appears patent. The main pancreatic duct stent appears in good position. 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 There may be minimal inflammatory change at the pancreatic head. This could represent a mild acute pancreatitis. No leeann pancreatic fluid collections identified. Calcified plaque within the normal caliber abdominal aorta. The spleen is unremarkable. No hydronephrosis. Normal adrenal glands. No pelvic free fluid. Normal bladder. The uterus and adnexa are unremarkable. There is a small fat-containing left inguinal hernia. Suboptimal evaluation for bowel pathology due to the lack of intravenous and oral contrast. However, no dilated loops of bowel to suggest an obstruction. Prior appendectomy. Redemonstration of the 1.7 cm intraluminal lesion within the cecum. The previous described intraluminal lesion within the ileum is not well visualized on this study. There is suggestion of a single inflamed diverticulum at the mid sigmoid colon best seen on image 220. This could represent an early acute diverticulitis. No perforation or abscess identified. The colon is decompressed. IMPRESSION: 1. Questionable minimal fat stranding at the pancreatic head. This could be reactive to the common bile duct stent. An early acute pancreatitis is not excluded. Recommend correlation with pancreatic enzymes. 2. Possible early acute diverticulitis the mid sigmoid colon. No perforation or abscess. 3. Extensive osteoblastic metastatic disease again noted. 4. Biliary and pancreatic stents in place. 5. Additional findings as described above. ACT 112: Negative or not required by law. Electronically signed by: Cullen Shipley M.D. 06/01/2023 5:26 PM
[2023-06-02] MEDS: LACTATED RINGER'S 1,000 ML IV SCH (12:54)
[2023-06-02] MEDS: SODIUM ZIRCONIUM CYCLOSILICATE 10 GM PACKET PO SCH (14:13)
[2023-06-02 15:12] LABS: BUN Creatinine Ratio 24.1 (10-20); Calcium 9.5 mg/dl (8.6-10.3); Creatinine Clr Calc Pharmacy 14.5 ml/min; Est GFR (African American) 22.8 ml/min; Est GFR (Non-African American) 19.6 ml/min; Potassium 5.6 mmol/L (3.5-5.1)
--- NOTE | 2023-06-02 15:35 | Billing Data ---
Date of Service June 02, 2023 Coding Level of Care Code 03354 SUB INP/OBS CARE MIN
--- NOTE | 2023-06-02 15:36 | Billing Data ---
Date of Service June 02, 2023 Coding Level of Care Code 35167 SUB INP/OBS CARE MIN
[2023-06-02 16:16] LABS: Calcium 9.5 mg/dl (8.6-10.3); Creatinine Clr Calc Pharmacy 14.7 ml/min; Est GFR (African American) 23.2 ml/min; Potassium 5.5 mmol/L (3.5-5.1)
[2023-06-03 06:08] LABS: Hematocrit (blood only) 24.7 % (37.0-47.0); Hemoglobin 7.9 g/dl (12.0-16.0); Mean Corpuscular Hemoglobin 30.4 pg (25.0-34.0); Mean Platelet Volume 9.1 fL (9.4-12.4); Platelet Count 183 K/uL (130-400); RDW Coefficient of Variation 17.2 % (11.5-14.5); RDW Standard Deviation 60.5 fL (36.4-46.3); White Blood Count 4.52 K/ul (4.8-10.8)
[2023-06-03 06:27] LABS: BUN Creatinine Ratio 24.6 (10-20); Calcium 9.3 mg/dl (8.6-10.3); Creatinine Clr Calc Pharmacy 16.7 ml/min; Est GFR (Non-African American) 23.3 ml/min; Potassium 5.3 mmol/L (3.5-5.1)
[2023-06-03] MEDS: DEXTROSE 50% 50 ML SYRINGE IV ONE (07:09)
--- NOTE | 2023-06-03 07:20 | Hospitalist Progress Note ---
Date of Service June 03, 2023 Assessment & Plan (1) Nausea and vomiting: Plan: -Patient with recent cholecystectomy along with ERCP and stent placement, had planned to have removed in 2 weeks. -Has had symptoms of nausea, weakness, dry heaves worsening over past few days. -CT A&P with minimal fat stranding pancreatic head, possible early diverticulitis, biliary and pancreatic stents in place. -Hgb 8.6 but stable, K 6.0 on admission, creat elevated to 3.08 (baseline ~1.7), LFTs elevated. -U/A with WBC, LE, 4+ Bacteria, culture pending. -Patient was placed on Unasyn on admission for potential UTI source to symptoms as well as potential stent infection as source. -GI consulted, given elevated LFTs, possible early pancreatitis on CT, patient's issues may be related to stent/retained CBD stone. -May need ERCP sooner/transfer to [facility] if does not improve. -Will continue Unasyn for now, follow urine cultures and patient's symptoms. -Accepted to [facility] for ERCP however not emergent as patient stable. Transfer when bed available. (2) Acute UTI: Plan: -Same plan as above. Will follow cultures and continue Unasyn. (3) JERRELL (acute kidney injury): Plan: -Creatinine 3.08 on admission with baseline 1.5-1.9. -JERRELL possibly due to dehydration, infection, combination. -Hold nephrotoxic agents. -Trending back down. -Received 1500cc fluid per sepsis protocol, will hold off on further fluid at this time due to CHF. -Continue to trend with AM BMP. (4) Anemia: Plan: -Chronic, history of transfusions however no signs of active bleeding. -Blood consented and 2U PRBC held in case patient needs. (5) Sepsis: Plan: -Patient hypotensive to 93/51 on admission, given (6) Hyperkalemia: Plan: -K 6.0 on admission with trending down with 5U insulin + D5 -EKG without peaked T waves. Given calcium gluconate on admission. -K uptrended to 5.9, may have to do with JERRELL and dehydration in the face of infection. -Will start on 60ml/hr LR x1L as well as Lokelma. -Continue to monitor BMP q4h (7) Hypomagnesemia: Plan: -Mag 1.6 on admission. -Repleted 2gm Mg sulfate. (8) Hypertension: Plan: -Had been taking metoprolol however will hold for now given low blood pressures in face of infection. Plan F/E/N/GI: NPO to give bowel rest. DVT Prophylaxis: SCD, hold chemoprophylaxis if obtaining ERCP tomorrow or next day. Code status: Full Dispo: PCU, transfer to [facility] when bed available for ERCP and stent removal. Admission and Anticipated Discharge Date Admission Date: June 01, 2023 Subjective Patient doing well this morning saying she does not have any abdominal pain currently but still getting a little nauseous at times with movement. Review of Systems Review of Systems: As per HPI. Physical Exam Constitutional: WD/WN, vitals as above Eyes: PERRL, conjunctivae normal, anicteric sclerae Respiratory: normal respiratory effort, lungs clear to auscultation Cardiovascular: RRR, no murmur, no edema Gastrointestinal (Abdomen): normal bowel sounds, soft, nontender, no hepatosplenomegaly Psychiatric: A+Ox3, euthymic affect Results & Data Results & Data Vital Signs (Past 12 Hours) Vital Signs Temp Pulse Pulse Resp BP Pulse Ox O2 Del Method 06/03/23 03:48 36.4 C L 82 20 137/68 98 Room Air 06/02/23 23:25 36.7 C 81 20 121/63 97 Room Air 06/02/23 22:00 83 06/02/23 19:48 36.4 C L 80 18 118/59 L 95 Room Air Resident Activity Tracking Resident Involvement: Resident Care Provided Care Provided: Adult Hospital Medicine
[2023-06-03] MEDS: ACETAMINOPHEN 1,000 MG/100 ML VIAL IV PRN (07:46)
[2023-06-03 08:42] LABS: Albumin Level 3.1 gm/dl (3.4-5.0); Bilirubin,Total 0.6 mg/dl (0.2-1.0); Total Protein 5.8 gm/dl (6.0-8.3)
--- NOTE | 2023-06-03 12:07 | Discharge Summary ---
Date of Service June 03, 2023 Admission HPI Per Admitting Provider Wanda is a pleasant 88-year-old female with PMH of GA, stented coronary artery, GERD, and s/p appendectomy, and s/p cholecystectomy. She presented for nausea and dry heaving that began the morning of 05/31. Patient had a recent [place] hospital admission for acute cholecystitis in March 2023; s/p ERCP and laparoscopic cholecystectomy 03/30. She notes she has been having intermittent abdominal cramping ever since her gallbladder surgery. This cramping is in the right upper quadrant, and she can usually tell it coming on gradually. No radiation. Alleviated by lying still. Exacerbated by lying on her right side. Patient notes she has not been able to sleep on her side as this can sometimes exacerbate the cramping; sleeps on her back. Cramping lasts 15-60 seconds at a time, and she is unsure how often it occurs. Patient did take tramadol for the cramping last night, which she reports helped a lot. She then developed nausea and dry heaves this morning; no vomiting. She was scheduled to have her stent removed in 3 weeks, but daughter was concerned for an infected stent and requested that she come into the hospital. Patient reports that she has not been eating or drinking much; does not drink much water. She did not take any of her regular morning medications today; only recent change in medications were Gas-X and Tums which she has been using for GERD. She denies smoking, alcohol use, tobacco use. Patient's vitals are stable at time of admission. ED course: Zofran 4 mg IV NSS 1000 mL IV ROS: Patient endorses lightheadedness with standing, dry cough, intermittent RUQ abdominal cramping, nausea, back pain (she says this is common with UTIs), diarrhea (secondary to Verzenio) Patient denies fever, chills, body aches, fall, fainting, DICKSON, CP, SOB, saddle anesthesia, suprapubic pain, burning with urination, blood in urine/stool, dysuria, melena, or N/T in arms or legs. Admission Exam Per Admitting Provider General: no acute distress; pleasant affect; non-toxic appearing; well- nourished; cooperative; SpO2 98% on RA HEENT: normocephalic, atraumatic; no scleral icterus; PERRLA; vision and hearing grossly intact Neck: supple; no lymphadenopathy; trachea midline Skin: warm, dry without signs of tenting; no cyanosis; no rashes, bruising, lesions, or erythema noted CV: chest wall NTP; RRR; S1/S2 normal; no murmurs/rubs/gallops; pulses intact and symmetric at radial, DP, and PT Lungs: no acute respiratory distress; symmetrical chest wall expansion; clear breath sounds across all lung marques w/o adventitious sounds; no wheezing ABD: Soft, NTP; RUQ is NTP; BS present; no rebound/guarding; no distention; no signs of rashes, bruising, or active bleeding on the abdomen MSK: no tics or fasciculations; no edema noted in the LEs b/l, nonerythematous Neuro: A&Ox3; normal mood and affect; fluent speech; no focal deficits; sensation grossly intact in the LEs b/l Principal Diagnosis Nausea, Weakness Discharge Exam Constitutional WD/WN, vitals as above Eyes PERRL, conjunctivae normal, anicteric sclerae Respiratory normal respiratory effort, lungs clear to auscultation Cardiovascular RRR, no murmur, no edema Gastrointestinal (Abdomen) normal bowel sounds, soft, nontender, no hepatosplenomegaly Psychiatric A+Ox3, euthymic affect Discharge Data Allergies Allergy/AdvReac Type Severity Reaction Status Date / Time prochlorperazine Allergy Unknown PT'S Verified 06/01/23 17:27 [From Compazine] MOTHER HAD ANAPHYLATIC REACTION, TOLD NOT TO TAKE. ciprofloxacin [From Cipro] AdvReac Mild Nausea Verified 06/01/23 17:27 sulfamethoxazole AdvReac Mild Nausea Verified 06/01/23 17:27 [From Bactrim] trimethoprim [From Bactrim] AdvReac Mild Nausea Verified 06/01/23 17:27 Consultations 06/01/23 17:42 ED Decision to Admit Stat 06/01/23 21:30 Consult Gastroenterology Routine 06/03/23 11:13 Burn CD for patient Stat Ordered Studies 06/01/23 16:43 CT abd pelvis wo con Stat IMPRESSION: 1. Questionable minimal fat stranding at the pancreatic head. This could be reactive to the common bile duct stent. An early acute pancreatitis is not excluded. Recommend correlation with pancreatic enzymes. 2. Possible early acute diverticulitis the mid sigmoid colon. No perforation or abscess. 3. Extensive osteoblastic metastatic disease again noted. 4. Biliary and pancreatic stents in place. 5. Additional findings as described above. Hospital Course (1) Nausea and vomiting: -Patient with recent cholecystectomy along with ERCP and stent placement, had planned to have removed in 2 weeks. -Has had symptoms of nausea, weakness, dry heaves worsening over past few days. -CT A&P with minimal fat stranding pancreatic head, possible early diverticulitis, biliary and pancreatic stents in place. -Hgb 8.6 but stable, K 6.0 on admission, creat elevated to 3.08 (baseline ~1.7), LFTs elevated. -U/A with WBC, LE, 4+ Bacteria, culture pending. -Patient was placed on Unasyn on admission for potential UTI source to symptoms as well as potential stent infection as source. -GI consulted, given elevated LFTs, possible early pancreatitis on CT, patient's issues may be related to stent/retained CBD stone. -May need ERCP sooner/transfer to [facility] if does not improve. -Will continue Unasyn for now, urine culture grew pansensitive Klebsiella pneumoniae. -Transferred to [facility] for ERCP and possible stent removal. (2) Acute UTI: -Same plan as above, Klebsiella pneumoniae pansensitive, continue Unasyn. (3) JERRELL (acute kidney injury): -Creatinine 3.08 on admission with baseline 1.5-1.9. -JERRELL possibly due to dehydration, infection, combination. -Hold nephrotoxic agents. -Trending back down. -Received 1500cc fluid per sepsis protocol, will hold off on further fluid at this time due to CHF. -Creat 1.91 by time of transfer with creat clearance 16.7. (4) Anemia: -Chronic, history of transfusions however no signs of active bleeding. -Did not require transfusion while inpatient. (5) Sepsis: -Patient hypotensive to 93/51 on admission, given 1500cc NSS as above. Has remained stable. (6) Hyperkalemia: -K 6.0 on admission with trending down with 5U insulin + D5 -EKG without peaked T waves. Given calcium gluconate on admission. -K uptrended to 5.9, may have to do with JERRELL and dehydration in the face of infection. -Will start on 60ml/hr LR x1L as well as Lokelma. -K 5.3 on day of discharge to [facility]. (7) Hypomagnesemia: -Mag 1.6 on admission. -Repleted 2gm Mg sulfate. (8) Hypertension: -Had been taking metoprolol however will hold for now given low blood pressures in face of infection. Total Time Total Time Spent Total Time Spent (In Minutes): <30 Discharge Plan Discharge Items Patient Disposition: Transfer Acute Care Hospital Reason For Visit: NAUSEA, DRY HEAVES, ABDOMINAL CRAMPING Discharge Diagnosis: Nausea/vomiting Activity: Per Instructions section Non-emergency contact: Primary Care Provider and Director Of Graduate Medical Education Call non-emergency contact if: your symptoms worsen, your pain is worsening and your temperature is above 101 Follow-up/Referrals: Chela Collier DO [Primary Care Provider] - Diet: Regular Addtl Attending Provider Instructions: (1) Nausea and vomiting: Plan: -Patient with recent cholecystectomy along with ERCP and stent placement, had planned to have removed in 2 weeks. -Has had symptoms of nausea, weakness, dry heaves worsening over past few days. -CT A&P with minimal fat stranding pancreatic head, possible early diverticulitis, biliary and pancreatic stents in place. -Hgb 8.6 but stable, K 6.0 on admission, creat elevated to 3.08 (baseline ~1.7), LFTs elevated. -U/A with WBC, LE, 4+ Bacteria, culture pending. -Patient was placed on Unasyn on admission for potential UTI source to symptoms as well as potential stent infection as source. -GI consulted, given elevated LFTs, possible early pancreatitis on CT, patient's issues may be related to stent/retained CBD stone. -May need ERCP sooner/transfer to [facility] if does not improve. -Will continue Unasyn for now, follow urine cultures and patient's symptoms. -Accepted to [facility] for ERCP however not emergent as patient stable. Trnasfer when bed available. (2) Acute UTI: Plan: -Same plan as above. Will follow cultures and continue Unasyn. (3) JERRELL (acute kidney injury): Plan: -Creatinine 3.08 on admission with baseline 1.5-1.9. -JERRELL possibly due to dehydration, infection, combination. -Hold nephrotoxic agents. -Trending back down. -Received 1500cc fluid per sepsis protocol, will hold off on further fluid at this time due to CHF. -Can bring Unasyn dosing frequency down to q12h given improvement of renal function creatinine clearance 16.7 on 06/02. -Continue to trend with AM BMP. (4) Anemia: Plan: -Chronic, history of transfusions however no signs of active bleeding. -Blood consented and 2U PRBC held in case patient needs. (5) Sepsis: Plan: -Patient hypotensive to 93/51 on admission, given (6) Hyperkalemia: Plan: -K 6.0 on admission with trending down with 5U insulin + D5 -EKG without peaked T waves. Given calcium gluconate on admission. -K uptrended to 5.9, may have to do with JERRELL and dehydration in the face of infe ction. -Will start on 60ml/hr LR x1L as well as Lokelma. -K+ 5.3 on 06/02. -Continue to monitor BMP q4h (7) Hypomagnesemia: Plan: -Mag 1.6 on admission. -Repleted 2gm Mg sulfate. (8) Hypertension: Plan: -Had been taking metoprolol however will hold for now given low blood pressures in face of infection. Plan F/E/N/GI: NPO to give bowel rest. DVT Prophylaxis: SCD, hold chemoprophylaxis if obtaining ERCP tomorrow or next day. Code status: Full Dispo: PCU, transfer to [facility] when bed available for ERCP and stent removal. Pending Studies at Discharge: Yes (Urine culture, blood culture) Stand-Alone Forms: [facility] Skilled Items Patient informed of condition?: Yes DNR: No Discharge Level of Care: Other Communicable Disease: No Discharge Prognosis: Stable Lines: Peripheral IV Urinary Catheter: No Medications and DC Order Prescriptions: Continued aspirin 81 mg tablet,delayed release (DR/EC) 81 mg PO QPM atorvastatin 20 mg tablet 20 mg PO QPM mecobalamin (vitamin B12) 1,000 mcg tablet,chewable 1,000 mcg PO DAILY escitalopram oxalate 5 mg tablet 5 mg PO QPM potassium chloride 10 mEq capsule, extended release 10 meq PO DAILY PRN (Reason: PT DOESN'T TAKE LASIX ANYMORE) metoprolol succinate 25 mg Tablet Extended Release 24 Hr 25 mg PO . ON HOLD AT PRESENT Hold Instructions: Resume on 04/11/23. follow up with PCP Rx Instructions: pt states she has been holding medication per homehealth nurse lorazepam 1 mg tablet 1 mg PO HS PRN (Reason: Anxiety) Verzenio 50 mg Tablet 50 mg PO AMHS Hold Instructions: Resume on 04/06/23. until you talk to Dr. Barragan ondansetron 8 mg Tablet,Disintegrating 8 mg PO TID PRN (Reason: Nausea And Vomiting) Rx Instructions: has been using prior to VERZENIO Entresto 49-51 mg tablet 1 tab PO BID tramadol 50 mg Tablet 50 mg PO Q6H PRN (Reason: Pain) protein Powder 1 ea PO DAILY calcium carbonate [Tums] 200 mg calcium (500 mg) Tablet,Chewable 200 - 400 mg PO DIRECTED PRN (Reason: HEARTBURN/INDIGESTION) simethicone 80 mg Tablet,Chewable 80 mg PO DIRECTED PRN (Reason: GAS DISCOMFORT) food supplemt, lactose-reduced Liquid 1 ea PO DAILY acetaminophen [Tylenol Extra Strength] 500 mg tablet 1,000 mg PO AMHS PRN (Reason: Pain) Discharge Orders: Discharge Order (Routine); Ordered 06/03/23 Ordered By: Aiden Lazaro Admission Data Admit Date/Time: 06/01/23 18:51 Attending Provider: Rancho Garner Admit Provider: Jignesh Rojo Primary Care Provider: Chela Collier Other Providers: Jignesh Rojo; Sp Hernandez Other Interventions: Discharge Summary Assessment (RN) Last Done: 06/03/23 11:49 Supervising Physician Co-Signing Physician Notes I personally examined the patient and verified all brito points of history and exam, discussed case, and agree with decision making with Dr Lazaro feels OK no new complaints for tx to [place] today, anticipate ERCP tomorrow vitals noted nad heent nc at mmm breathing unlabored no pallor or icterus abdominal pain - RUQ, elevated AST/ALT/alk phos - agree w GI suspect stent/stone/?less likely cholangitis related. stable but warrants ERCP. given her PO intake was poor enough to cause JERRELL on baseline ~stage 4 CKD with consequent hyperkalemia - i really doubt she'd do well with this as an outpatient. continue IV fluids, manage K (improving), unasyn. tx to [place] today chronic systolic CHF w EF ~35% per most recent cardiology notes - appearing compensated/stable Resident Activity Tracking Resident Involvement: Resident Care Provided Care Provided: Adult Hospital Medicine
--- NOTE | 2023-06-03 12:39 | Billing Data ---
Date of Service June 03, 2023 Coding Level of Care Code 00763 IN/OBS DISCH 30 MIN/LESS
--- NOTE | 2023-06-04 14:26 | Electrocardiogram Report ---
Test Reason : Blood Pressure : / mmHG Vent. Rate : 080 BPM Atrial Rate : 080 BPM P-R Int : 216 ms QRS Dur : 086 ms QT Int : 378 ms P-R-T Axes : 070 -41 057 degrees QTc Int : 435 ms Sinus rhythm with 1st degree A-V block with Premature atrial complexes Left axis deviation Septal infarct (cited on or before 01-JUN-2023) Possible Lateral infarct (cited on or before 01-JUN-2023) Abnormal ECG When compared with ECG of 30-MAR-2023 08:29, Premature atrial complexes are now Present Confirmed by Brian Hill ([id number]) on 06/04/2023 2:26:15 PM Referred By: REFERRED SELF Confirmed By:Brian Hill
== END 2023-06-03 16:24 | disposition short-term general hospital (02) | DRG 872 ==
LOC: ED 13:27 → SUATTDRO 18:51 → 4W 18:51